=== PATIENT | female | born 1935 | race Caucasian/White ===

== ENCOUNTER 2017-02-25 03:39 | Emergency (ER) | payer MEDICARE, OTHER ==
[2017-02-25 04:57] LABS: ABSOLUTE EOSINOPHILS # (AUTO) 0.2 10^3/uL (0.0-0.6); ABSOLUTE MONOCYTES (AUTO) 0.5 10^3/uL (0.1-1.4); ABSOLUTE NEUT (AUTO) 3.2 10^3/uL (1.7-8.2); BASOPHILS % (AUTO) 0.7 % (0-2); EOSINOPHILS % (AUTO) 2.8 % (0-6); HEMOGLOBIN 12.3 g/dL (12.0-15.5); HGB HCT DIFFERENCE -1.1; LYMPHOCYTES % (AUTO) 33.9 % (13-45); MEAN CORPUSCULAR HEMOGLOBIN 27.8 pg (27.0-33.4); MEAN CORPUSCULAR HGB CONC 32.5 g/dL (32.0-36.0); MEAN CORPUSCULAR VOLUME 86 fl (80-97); MONOCYTES % (AUTO) 8.9 % (3-13); RED BLOOD COUNT 4.43 10^6/uL (3.72-5.28); RED CELL DISTRIBUTION WIDTH 13.5 % (11.5-14.0); SEGMENTED NEUTROPHILS % (AUTO) 53.7 % (42-78); WHITE BLOOD COUNT 5.9 10^3/uL (4.0-10.5)
[2017-02-25 05:11] LABS: ANION GAP 10 (5-19); BLOOD UREA NITROGEN 14 mg/dL (7-20); CALCIUM 9.2 mg/dL (8.4-10.2); CARBON DIOXIDE 24 mmol/L (22-30); CHLORIDE 107 mmol/L (98-107); CREATININE RESULT 0.64 mg/dL (0.52-1.25); GLUCOSE 83 mg/dL (75-110); POTASSIUM 4.3 mmol/L (3.6-5.0); SODIUM 140.5 mmol/L (137-145)
[2017-02-25 05:13] LABS: APPEARANCE,URINE CLEAR; BILIRUBIN,URINE NEGATIVE (NEGATIVE); GLUCOSE, URINE NEGATIVE (NEGATIVE); KETONES,URINE NEGATIVE (NEGATIVE); LEUKOCYTE ESTERASE,URINE NEGATIVE (NEGATIVE); NITRITE,URINE NEGATIVE (NEGATIVE); PROTEIN,URINE NEGATIVE (NEGATIVE); URINE SPECIFIC GRAVITY 1.004; UROBILINOGEN,URINE NEGATIVE mg/dL (<2.0)
--- NOTE | 2017-02-25 05:36 | RADIOLOGY REPORT (SQ) ---
EXAM DESCRIPTION: FOOT RIGHT COMPLETE COMPLETED DATE/TIME: 02/25/2017 5:24 am REASON FOR STUDY: FALL COMPARISON: None. NUMBER OF VIEWS: Three views. TECHNIQUE: AP, lateral and oblique radiographic images acquired of the right foot. LIMITATIONS: None. FINDINGS: MINERALIZATION: Osteopenia. BONES: No acute fracture or dislocation. No worrisome bone lesions. With [id number] osteoarth ritis of the right 1st metatarsophalangeal joint. Moderate bunion deformity. Moderate plantar fauci al enthesophyte. JOINTS: No effusions. SOFT TISSUES: No soft tissue swelling. No foreign body. OTHER: No other significant finding. IMPRESSION: No acute findings. TECHNICAL DOCUMENTATION: JOB ID: [id number] [employer]- All Rights Reserved
--- NOTE | 2017-02-25 05:37 | RADIOLOGY REPORT (SQ) ---
EXAM DESCRIPTION: FOOT LEFT COMPLETE COMPLETED DATE/TIME: 02/25/2017 5:24 am REASON FOR STUDY: FALL COMPARISON: None. NUMBER OF VIEWS: Three views. TECHNIQUE: AP, lateral and oblique radiographic images acquired of the left foot. LIMITATIONS: None. FINDINGS: MINERALIZATION: Osteopenia. BONES: [id number] osteoarthritis involves the Lisfranc joint and forefoot. 0.2 cm osteophyte a t the lateral aspect of the left 5th middle phalangeal base. Moderate plantar faucial enthesophyte. JOINTS: No effusions. SOFT TISSUES: No soft tissue swelling. No foreign body. OTHER: No other significant finding. IMPRESSION: Moderate osteoarthritis pre TECHNICAL DOCUMENTATION: JOB ID: [id number] [employer]- All Rights Reserved
[2017-02-25] MEDS ORDERED: FUROSEMIDE 20 MG TABLET PO ONE (06:24)
--- NOTE | 2017-02-25 06:25 | ER Document Report ---
ED General - General Chief Complaint: Foot Pain Stated Complaint: FOOT PAIN Time Seen by Provider: 02/25/17 03:59 Notes: Patient is a 81-year-old female who presents with complaint of swelling in her feet. She says that there is some red spiders in her new apartment. They did spray to kill the spiders but she is concerned she has a swelling of feet and thinks maybe the scars may have bit her. She denies any difficulty breathing. No chest pain. No fevers or infections. She said she also call her toe on the floor and wants to make sure that her feet are not broken. She has no other complaints at this time. TRAVEL OUTSIDE OF THE [place] IN LAST 30 DAYS: No - Related Data Allergies/Adverse Reactions: sulfamethoxazole [From Septra DS] Allergy (Intermediate, Verified 02/25/17 06:37 ) RASH trimethoprim [From Septra DS] Allergy (Intermediate, Verified 02/25/17 06:37) RASH aspirin [Aspirin] Allergy (Mild, Verified 02/25/17 06:37) Hives doxycycline monohydrate [From Vibramycin] Allergy (Unknown, Verified 02/25/17 06 :37) made me feel drunk, couldn't walk meloxicam [From Mobic] Allergy (Unknown, Verified 02/25/17 06:37) UNKNOWN nitrofurantoin [Nitrofurantoin] Allergy (Unknown, Verified 02/25/17 06:37) Sick all over lidocaine [From Lidoderm] Allergy (Verified 02/25/17 06:37) cimetidine [From Tagamet] Adverse Reaction (Intermediate, Verified 02/25/17 06: 37) YEAST cimetidine HCl [From Tagamet] Adverse Reaction (Intermediate, Verified 02/25/17 06:37) YEAST amoxicillin trihydrate [From Augmentin] Adverse Reaction (Mild, Verified 06:37) Nausea ciprofloxacin [From Cipro] Adverse Reaction (Mild, Verified 02/25/17 06:37) Sick stomach diclofenac sodium [From Arthrotec 75] Adverse Reaction (Mild, Verified 02/25/17 06:37) made me feel drunk doxycycline calcium [From Vibramycin] Adverse Reaction (Mild, Verified 02/25/17 06:37) made me feel drunk, couldn't walk doxycycline hyclate [From Vibramycin] Adverse Reaction (Mild, Verified 02/25/17 06:37) made me feel drunk, couldn't walk fexofenadine HCl [From Jacquelin] Adverse Reaction (Mild, Verified 02/25/17 06:37) "dries my mouth out" lansoprazole [From Prevacid] Adverse Reaction (Mild, Verified 02/25/17 06:37) Diarrhea misoprostol [From Arthrotec 75] Adverse Reaction (Mild, Verified 02/25/17 06:37) "felt drunk, couldn't walk" Potassium Clavulanate * [From Augmentin] Adverse Reaction (Mild, Verified 06:37) Nausea celecoxib [From Celebrex] Adverse Reaction (Unknown, Verified 02/25/17 06:37) Heart trouble ciprofloxacin HCl [From Cipro] Adverse Reaction (Unknown, Verified 02/25/17 06: 37) Sick stomach clindamycin HCl [From Cleocin] Adverse Reaction (Verified 02/25/17 06:37) Diarrhea clindamycin palmitate HCl [From Cleocin] Adverse Reaction (Verified 02/25/17 06: 37) Diarrhea clindamycin phosphate [From Cleocin] Adverse Reaction (Verified 02/25/17 06:37) Diarrhea risperidone [Risperidone] Adverse Reaction (Verified 02/25/17 06:37) Past Medical History - Social History Smoking Status: Unknown if Ever Smoked Drug Abuse: None Family History: Reviewed & Not Pertinent - Past Medical History Cardiac Medical History: Reports: Hx Hypertension Denies: Hx Coronary Artery Disease, Hx Heart Attack Pulmonary Medical History: Reports: Hx Asthma, Hx Pneumonia Denies: Hx Bronchitis, Hx COPD Neurological Medical History: Reports: Hx Migraine - visual migraines. 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, Reports Hx Musculoskeletal Trauma - left thumb Skin Medical History: Reports Hx Psoriasis Psychiatric Medical History: Reports: Hx Anxiety, Hx Depression Traumatic Medical History: Reports: Hx Fractures - left thumb Past Surgical History: Reports: Hx Appendectomy, Hx Cholecystectomy, Hx Hysterectomy, Hx Orthopedic Surgery - Immunizations Immunizations up to date: Yes Hx Diphtheria, Pertussis, Tetanus Vaccination: Yes - 2010 Hx Pneumococcal Vaccination: 09/19/07 Review of Systems - Review of Systems Notes: My Normal Review Basic REVIEW OF SYSTEMS: CONSTITUTIONAL : Denies fever, chills, or sweats. Denies recent illness. EENT: Denies eye, ear, throat, or mouth pain or symptoms. Denies nasal or sinus congestion. CARDIOVASCULAR: Denies chest pain. RESPIRATORY: Denies cough, cold, or chest congestion. Denies shortness of breath, difficulty breathing, or wheezing. GASTROINTESTINAL: Denies abdominal pain. Denies nausea, vomiting, or diarrhea. Denies constipation. Last BM: GENITOURINARY: Denies difficulty urinating, painful urination, burning, frequency, or blood in urine. MUSCULOSKELETAL: Lower extremity edema SKIN: Denies rash or skin lesions. NEUROLOGICAL: Denies altered mental status or loss of consciousness. Denies headache. Denies weakness or paralysis or loss of use of either side. Denies problems with gait or speech. Denies sensory or motor loss. PSYCHIATRIC: Denies anxiety or stress or depression. ALL OTHER SYSTEMS REVIEWED AND NEGATIVE. Physical Exam - Vital signs Vitals: Temp Pulse Resp BP Pulse Ox 97.7 F 110 H 20 150/91 H 95 02/25/17 03:40 02/25/17 03:40 02/25/17 03:40 02/25/17 03:40 02/25/17 03:40 - Notes Notes: General Appearance: Well nourished, alert, cooperative, no acute distress, no obvious discomfort. Well-appearing Vitals: reviewed, See vital signs table. Head: no swelling or tenderness to the head Eyes: PERRL, EOMI, Conjuctiva clear Mouth: No decreasd moisture Lungs: No wheezing, No rales, No rhonci, No accessory muscle use, good air exchange bilaterally. Heart: Normal rate, Regular rythm, No murmur, no rub Abdomen: Normal BS, soft, No rigidity, No abdominal tenderness, No guarding, no rebound, no abdominal masses, no organomegaly Extremities: strength 5/5 in all extremities, good pulses in all extremities, no swelling or tenderness in the extremities, 1+ bilateral lower extremity edema. Skin: warm, dry, appropriate color, no rash Neuro: speech clear, oriented x 3, normal affect, responds appropriately to questions. Course - Vital Signs Vital signs: Temp Pulse Resp BP Pulse Ox 97.6 F 62 18 141/79 H 100 02/25/17 06:35 02/25/17 06:35 02/25/17 06:35 02/25/17 06:35 02/25/17 06:35 - Laboratory Result Diagrams: 02/25/17 04:30 02/25/17 04:30 - Transfer of Care Notes: 02/25/17 07:09 Patient appears to have some pedal edema. Denies any significant rashes. I did not see any bug bites. Patient herself says that the edema is actually much improved in comparison to what was at home. I will place her on a short course of Lasix. I encouraged her to keep her legs elevated. She otherwise looks very well. Her x-rays are negative. She has full range of motion of her feet and good strength. At this time I feel she is safe to be discharged home. I encourage her to return to the ER immediately if she has increasing edema, any difficulty breathing, or any further concerns. Patient agrees with plan and will be discharged home. Dictation of this chart was performed using voice recognition software; therefore, there may be some unintended grammatical errors. Discharge - Discharge Clinical Impression: Foot pain, bilateral, Pedal edema Condition: Good Disposition: HOME, SELF-CARE Additional Instructions: Please take the Lasix as prescribed. Please keep your legs elevated on pillows when in bed. please call your doctor to follow up with him this week. Please return to the ER immediately if you have worsening swelling, any difficulty breathing, or if you feel unwell. Prescriptions: Furosemide [Lasix 20 mg Tablet] 20 mg PO QAM #10 tablet
[2017-02-25 06:36] VITALS: BP 141/79
== END 2017-02-25 06:45 | disposition home or self-care (01) ==
LOC: ER 03:39
DX: M79.671 Pain in right foot (principal); M79.672 Pain in left foot; R60.0 Localized edema; I10 Essential (primary) hypertension; J45.909 Unspecified asthma, uncomplicated; Z88.1 Allergy status to other antibiotic agents; Z88.6 Allergy status to analgesic agent; Z88.4 Allergy status to anesthetic agent
CPT/HCPCS: 99283; 36415; 85025; 80048; 81001; 73630 ×2; A9270

== ENCOUNTER 2017-04-02 12:58 | Emergency (ER) | payer MEDICARE, OTHER ==
[2017-04-02 14:25] VITALS: BP 123/81
[2017-04-02 14:27] LABS: ABSOLUTE EOSINOPHILS # (AUTO) 0.1 10^3/uL (0.0-0.6); ABSOLUTE LYMPHOCYTES (AUTO) 2.2 10^3/uL (0.5-4.7); ABSOLUTE MONOCYTES (AUTO) 0.5 10^3/uL (0.1-1.4); ABSOLUTE NEUT (AUTO) 4.6 10^3/uL (1.7-8.2); BASOPHILS % (AUTO) 0.6 % (0-2); EOSINOPHILS % (AUTO) 1.8 % (0-6); HEMATOCRIT 39.3 % (36.0-47.0); HEMOGLOBIN 13.3 g/dL (12.0-15.5); HGB HCT DIFFERENCE 0.6; LYMPHOCYTES % (AUTO) 29.6 % (13-45); MEAN CORPUSCULAR HEMOGLOBIN 28.4 pg (27.0-33.4); MEAN CORPUSCULAR HGB CONC 33.9 g/dL (32.0-36.0); MEAN CORPUSCULAR VOLUME 84 fl (80-97); MONOCYTES % (AUTO) 6.9 % (3-13); RED BLOOD COUNT 4.68 10^6/uL (3.72-5.28); RED CELL DISTRIBUTION WIDTH 13.8 % (11.5-14.0); SEGMENTED NEUTROPHILS % (AUTO) 61.1 % (42-78); WHITE BLOOD COUNT 7.6 10^3/uL (4.0-10.5)
[2017-04-02 14:34] LABS: APPEARANCE,URINE CLEAR; BILIRUBIN,URINE NEGATIVE (NEGATIVE); GLUCOSE, URINE NEGATIVE (NEGATIVE); KETONES,URINE TRACE mg/dL (NEGATIVE); LEUKOCYTE ESTERASE,URINE NEGATIVE (NEGATIVE); NITRITE,URINE NEGATIVE (NEGATIVE); PROTEIN,URINE NEGATIVE (NEGATIVE); URINE SPECIFIC GRAVITY 1.003; UROBILINOGEN,URINE NEGATIVE mg/dL (<2.0)
--- NOTE | 2017-04-02 14:35 | RADIOLOGY REPORT (SQ) ---
EXAM DESCRIPTION: CHEST PA/LAT COMPLETED DATE/TIME: 04/02/2017 2:27 pm REASON FOR STUDY: Chest pain and short of breath COMPARISON: 10/20/2012 EXAM PARAMETERS: NUMBER OF VIEWS: two views TECHNIQUE: Digital Frontal and Lateral radiographic views of the chest acquired. RADIATION DOSE: NA LIMITATIONS: none FINDINGS: LUNGS AND PLEURA: The lungs are hyperexpanded. There are no pulmonary infiltrates or pleu ral effusions. There is no mass. MEDIASTINUM AND HILAR STRUCTURES: A small hiatal hernia is suggested. HEART AND VASCULAR STRUCTURES: Heart normal size. No evidence for failure. BONES: No acute findings. HARDWARE: None in the chest. OTHER: No other significant finding. IMPRESSION: 1. Chronic lung changes with no acute cardiopulmonary disease. 2. Small hiatal hernia. TECHNICAL DOCUMENTATION: JOB ID: [id number] [employer]- All Rights Reserved
[2017-04-02 14:51] LABS: ALANINE AMINOTRANSFERASE 24 U/L (9-52); ALBUMIN 4.2 g/dL (3.5-5.0); ALKALINE PHOSPHATASE 122 U/L (38-126); ANION GAP 12 (5-19); ASPARTATE AMINO TRANSFERASE 20 U/L (14-36); BILIRUBIN,DIRECT 0.3 mg/dL (0.0-0.4); BILIRUBIN,TOTAL 0.6 mg/dL (0.2-1.3); BLOOD UREA NITROGEN 12 mg/dL (7-20); CALCIUM 9.8 mg/dL (8.4-10.2); CARBON DIOXIDE 24 mmol/L (22-30); CHLORIDE 102 mmol/L (98-107); CREATINE KINASE 49 U/L (30-135); CREATININE RESULT 0.67 mg/dL (0.52-1.25); GLUCOSE 95 mg/dL (75-110); POTASSIUM 4.2 mmol/L (3.6-5.0); SODIUM 137.6 mmol/L (137-145); TOTAL PROTEIN 7.4 g/dL (6.3-8.2)
--- NOTE | 2017-04-02 15:02 | RADIOLOGY REPORT (SQ) ---
EXAM DESCRIPTION: CT HEAD WITHOUT COMPLETED DATE/TIME: 04/02/2017 2:43 pm REASON FOR STUDY: Headache and dizzy COMPARISON: 10/24/2011. TECHNIQUE: Axial images acquired through the brain without intravenous contrast. Images reviewed wi th bone, brain and subdural windows. Images stored on PACS. All CT scanners at this facility use dose modulation, iterative reconstruction, and/or weight based d osing when appropriate to reduce radiation dose to as low as reasonably achievable (ALARA). [facility]: Dose Right [facility]: CareDose [facility]: Dose Right [facility]: Teradose 4D [facility]: [employer] RADIATION DOSE: Up-to-date CT equipment and radiation dose reduction techniques were employed. CTDIv ol: 49.0 mGy. DLP: 783 mGy-cm. mGy. LIMITATIONS: None. FINDINGS: VENTRICLES: Prominent. CEREBRUM: No masses. No hemorrhage. No midline shift. Areas of low density in the white matter mos t likely due to chronic micro-vascular ischemic change. Small old lacunar infarct on the left unchan ged. No evidence for acute infarction. CEREBELLUM: No masses. No hemorrhage. No alteration of density. No evidence for acute infarction. EXTRAAXIAL SPACES: Mild age-related involutional change. No fluid collections. No masses. ORBITS AND GLOBE: No intra- or extraconal masses. Normal contour of globe without masses. CALVARIUM: No fracture. PARANASAL SINUSES: Small amount of fluid in the right maxillary sinus, also present on the prior stud y. SOFT TISSUES: No mass or hematoma. OTHER: No other significant finding. IMPRESSION: 1. MILD CHRONIC CHANGES OF ATROPHY AND MICROVASCULAR ISCHEMIA. 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 NO ACUTE PROCESS. 2. RIGHT MAXILLARY SINUS DISEASE. TECHNICAL DOCUMENTATION: JOB ID: [id number] Quality ID # [id number]: Final reports with documentation of one or more dose reduction techniques (e.g., Au tomated exposure control, adjustment of the mA and/or kV according to patient size, use of iterative reconstruction technique) 2010 [employer]- All Rights Reserved
[2017-04-02 15:06] LABS: CREATINE KINASE MB 1.43 ng/mL (<4.55)
[2017-04-02 15:07] LABS: TROPONIN I < 0.012 ng/mL
--- NOTE | 2017-04-02 15:45 | ER Document Report ---
ED Dizziness/Weakness - General Chief Complaint: Dizziness Stated Complaint: DIZZINESS Time Seen by Provider: 04/02/17 13:39 Notes: Patient is here for multiple complaints, primarily is that she is feeling weak and dizzy. Patient has a rather lengthy history of present illness. She starts by saying that she was living in [place] with her daughter a couple of months ago when she decided to return to [place], where she had spent most of her life. Patient says that her daughter was unmanageable and uncontrollable and would have severe temper tantrums, so much so that the police had to be called a couple of times. Patient says that she was trying to help her daughter and spending her money wisely. She said that in these past couple months she has been here to the emergency department for spider bites of her feet with her feet swelling and painful followed by upper respiratory symptoms about 2 months ago. Today, patient took a van to the mental health facility and was seen there and then as she was leaving, she began to feel very dizzy and sick and had difficulty walking and keeping her balance. She says she had some headache on the left side of her head. Also had some heavy feeling in her chest. [place] very weak and shaky, although she did not fall. She did not lose consciousness. She did not have any fever. No nausea or vomiting or diarrhea. Patient says that she is seen in mental health for PTSD and anxiety and one other condition she cannot remember. Says she has been on Klonopin for 17 years. Also has a history of IBS and chronic constipation. TRAVEL OUTSIDE OF THE [place] IN LAST 30 DAYS: No - Related Data Allergies/Adverse Reactions: sulfamethoxazole [From Septra DS] Allergy (Intermediate, Verified 02/25/17 06:37 ) RASH trimethoprim [From Septra DS] Allergy (Intermediate, Verified 02/25/17 06:37) RASH aspirin [Aspirin] Allergy (Mild, Verified 02/25/17 06:37) Hives doxycycline monohydrate [From Vibramycin] Allergy (Unknown, Verified 02/25/17 06 :37) made me feel drunk, couldn't walk meloxicam [From Mobic] Allergy (Unknown, Verified 02/25/17 06:37) UNKNOWN nitrofurantoin [Nitrofurantoin] Allergy (Unknown, Verified 02/25/17 06:37) Sick all over lidocaine [From Lidoderm] Allergy (Verified 02/25/17 06:37) cimetidine [From Tagamet] Adverse Reaction (Intermediate, Verified 02/25/17 06: 37) YEAST cimetidine HCl [From Tagamet] Adverse Reaction (Intermediate, Verified 02/25/17 06:37) YEAST amoxicillin trihydrate [From Augmentin] Adverse Reaction (Mild, Verified 06:37) Nausea ciprofloxacin [From Cipro] Adverse Reaction (Mild, Verified 02/25/17 06:37) Sick stomach diclofenac sodium [From Arthrotec 75] Adverse Reaction (Mild, Verified 02/25/17 06:37) made me feel drunk doxycycline calcium [From Vibramycin] Adverse Reaction (Mild, Verified 02/25/17 06:37) made me feel drunk, couldn't walk doxycycline hyclate [From Vibramycin] Adverse Reaction (Mild, Verified 02/25/17 06:37) made me feel drunk, couldn't walk fexofenadine HCl [From Jacquelin] Adverse Reaction (Mild, Verified 02/25/17 06:37) "dries my mouth out" lansoprazole [From Prevacid] Adverse Reaction (Mild, Verified 02/25/17 06:37) Diarrhea misoprostol [From Arthrotec 75] Adverse Reaction (Mild, Verified 02/25/17 06:37) "felt drunk, couldn't walk" Potassium Clavulanate * [From Augmentin] Adverse Reaction (Mild, Verified 06:37) Nausea celecoxib [From Celebrex] Adverse Reaction (Unknown, Verified 02/25/17 06:37) Heart trouble ciprofloxacin HCl [From Cipro] Adverse Reaction (Unknown, Verified 02/25/17 06: 37) Sick stomach clindamycin HCl [From Cleocin] Adverse Reaction (Verified 02/25/17 06:37) Diarrhea clindamycin palmitate HCl [From Cleocin] Adverse Reaction (Verified 02/25/17 06: 37) Diarrhea clindamycin phosphate [From Cleocin] Adverse Reaction (Verified 02/25/17 06:37) Diarrhea risperidone [Risperidone] Adverse Reaction (Verified 02/25/17 06:37) Past Medical History - Social History Smoking Status: Former Smoker Chew tobacco use (# tins/day): No Frequency of alcohol use: None Drug Abuse: None Family History: Reviewed & Not Pertinent - Past Medical History Cardiac Medical History: Reports: Hx Atrial Fibrillation - History of, Hx Hypertension Pulmonary Medical History: Reports: Hx Asthma, Hx Pneumonia Denies: Hx Bronchitis, Hx COPD Neurological Medical History: Reports: Hx Migraine - visual migraines GI Medical History: Reports: Hx Gastroesophageal Reflux Disease, Hx Hiatal Hernia, Hx Irritable Bowel Musculoskeltal Medical History: 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 Generalized weakness. Dizziness. Vital signs are all normal. EENT: Denies eye, ear, nose or mouth or throat pain or other symptoms. Has a chronic Eye allergy/infection condition for which she is seeing an eye doctor. CARDIOVASCULAR: Denies chest pain. History of arrhythmia which she no longer has. RESPIRATORY: Denies cough, chest congestion, or shortness of breath. GASTROINTESTINAL: Denies abdominal pain or nausea, vomiting, or diarrhea. GENITOURINARY: Denies difficulty or painful urinating, urinary frequency, blood in urine. MUSCULOSKELETAL: Denies back or neck pain. Denies joint pain or swelling. SKIN: Denies rash or skin lesions. NEUROLOGICAL: Denies LOC or altered mental status. Denies sensory loss or motor deficits. ALL OTHER SYSTEMS REVIEWED AND NEGATIVE. Physical Exam - Vital signs Vitals: Resp Pulse Ox 17 100 04/02/17 13:10 04/02/17 13:10 Initial vital signs by EMS arrival sheet are all normal. Blood pressure 144/76 , heart rate 68, respirations 12, O2 sat 95% on room air. Interpretation: Normal - Notes Notes: PHYSICAL EXAMINATION: GENERAL: Well-appearing, in no acute distress. Anxious. No abnormal vital signs. HEAD: Atraumatic, normocephalic. EYES: Pupils equal round and reactive to light, extraocular movements intact. Skin around both eyelids is somewhat erythematous and irritated appearing, but does not look infectious. ENT: oropharynx clear without exudates. Moist mucous membranes. NECK: Normal range of motion, supple. LUNGS: Breath sounds clear and equal bilaterally. HEART: Regular rate and rhythm without murmurs. ABDOMEN: Soft, nontender. No guarding or rebound. BACK: No tenderness throughout entire back. EXTREMITIES: Normal range of motion without pain. NEUROLOGICAL: Normal speech, normal gait. Normal sensory, motor, and reflex exams. Awake, alert, and oriented x3. PSYCH: Normal mood, normal affect. Very anxious. SKIN: Warm, dry, no rashes. Course - Re-evaluation Re-evalutation: 04/02/17 15:59 Patient remained stable throughout her stay in the department. Says she still feels anxious. She thinks that her symptoms may be related to the fact that she had her dose of Klonopin increased while she was in [place] and has not felt the same ever since. I suggested she could decrease her dosage of the Klonopin and see how that does or she could even try more! - Vital Signs Vital signs: Temp Pulse Resp BP Pulse Ox 20 123/81 100 04/02/17 14:01 04/02/17 14:01 04/02/17 14:01 - Laboratory Result Diagrams: 04/02/17 14:05 04/02/17 14:05 Laboratory results interpreted by me: 04/02/17 14:15 Urine Ketones TRACE H - Diagnostic Test Radiology reviewed: Image reviewed, Reports reviewed - CT scan of the brain shows an old lacunar infarct, no acute changes and nothing new. Radiology results interpreted by me: 04/02/17 15:47 Chest x-ray is normal. - EKG Interpretation by Vt EKG shows normal: Sinus rhythm Rate: Normal Rhythm: NSR Discharge - Discharge Clinical Impression: Dizziness, Weakness, Anxiety Additional Instructions: Weakness We did not find a definite cause for your weakness. This may require further medical tests. Weakness can be caused by infection, physical exhaustion , rapid weight loss, dehydration, or medicine side effects. Diseases of the muscles, heart, nerves, and blood vessels can make you weak. Sometimes the problem is simply depression or lack of exercise. You should get plenty of rest. Unless the doctor tells you otherwise, it's usually best to add short periods of regular mild exercise. Eat a nutritious diet with multiple small, low-sugar meals. If symptoms continue, additional medical evaluation will be necessary. Be sure to follow up as instructed. If you become very dizzy, nauseated, or feel like you're going to faint, lie down right away. Wait until the symptoms have passed before you get up again. Stand up slowly. Call the doctor or return if you develop chest pain, abdominal pain, severe headache, irregular heartbeat or very fast pulse, confusion, vision problems, fever, muscular pain, or any other new symptom. DIZZINESS: Under normal circumstances, your sense of balance is controlled by a number of signals that your brain receives from several locations: Eyes. No matter what your position, visual signals help you determine where your body is in space and how it's moving. Sensory nerves. These are in your skin, muscles and joints. Sensory nerves send messages to your brain about body movements and positions. Inner ear. The organ of balance in your inner ear is the vestibular labyrinth. It includes loop-shaped structures (semicircular canals) that contain fluid and fine, hair-like sensors that monitor the rotation of your head. Near the semicircular canals are the utricle and saccule, which contain tiny particles called otoconia ([id number]). These particles are attached to sensors that help detect gravity and [id number] motion. Good balance depends on at least two of these three sensory systems working well. For instance, closing your eyes while washing your hair in the shower doesn't mean you'll lose your balance. Signals from your inner ear and sensory nerves help keep you upright. However, if your central nervous system can't process signals from all of these locations, if the messages are contradictory, or if the sensory systems aren't functioning properly, you may experience loss of balance. Dizziness may have a number of potential causes. These may include: Lightheadedness and other kinds of dizziness Feeling lightheaded is the feeling of being "spaced out" or having the sensation of spinning inside your head. It can also give you the sensation that if your lightheadedness worsens, you might lose consciousness. Causes may include: Inner ear disorders. These abnormalities of your inner ear can lead to illusions of motion and make you feel like you're floating. Anxiety disorders. Certain anxiety disorders, such as panic attacks and a fear of leaving home or being in large, open spaces (agoraphobia), may cause lightheadedness. Hyperventilation. Abnormally rapid breathing that often accompanies anxiety disorders may make you feel lightheaded. NORMAL EXAM AND WORKUP: At this time, your examination and workup show no significant abnormality. No significant abnormal physical findings were noted. All laboratory, EKG, and imaging (x-ray, CT scans, ultrasound) studies that were ordered show no significant abnormality. Although your examination and all studies that were ordered showed no significant abnormal finding, there are no examinations and no studies that are 100% accurate. There is always the possibility that some abnormality could exist and not be detected with physical examination or within the limits and capabilities of laboratory and other studies. You should return or follow up as you were instructed on your visit today for further evaluation if your symptoms do not resolve. Anxiety The physician feels that some of your health problems are being caused by anxiety. Anxiety affects your health in many ways. Anxiety alone can cause palpitations, sweats, chest pains, abdominal pains, shortness of breath, and headaches. It contributes to ulcer disease, high blood pressure, irritable bowel syndrome, and has been shown to cause flare-ups of many other diseases. Anxiety is not a simple disorder to treat. If the anxiety is due to recent life stresses, you may simply need time to "work through" the changes. If the anxiety is due to an underlying unhappiness with yourself or due to psychiatric disturbance, professional help will be needed. Your physician can refer you for further help if needed. Anti-anxiety medication is occasionally given if the stress is acute or if you are having trouble sleeping. Chronic or frequent use of these medications is not a good idea because the body becomes reliant on it, preventing you from dealing with life's normal stresses. FOLLOW-UP CARE: If you have been referred to a physician for follow-up care, call the physician s office for an appointment as you were instructed or within the next two days. If you experience worsening or a significant change in your symptoms, notify the physician immediately or return to the Emergency Department at any time for re-evaluation. Referrals: XOCHITL DELATORRE MD [Primary Care Provider] - Follow up as needed
--- NOTE | 2017-04-02 18:26 | EKG REPORT ---
SEVERITY:- ABNORMAL ECG - SINUS RHYTHM NONSPECIFIC ST-T CHANGES : Confirmed by: Hakan Prajapati MD 02-Apr-2017 18:25:10
== END 2017-04-02 16:34 | disposition other institution (70) ==
LOC: ER 12:58
DX: R42 Dizziness and giddiness (principal); R53.1 Weakness; R09.89 Other specified symptoms and signs involving the circulatory and respiratory systems; R26.2 Difficulty in walking, not elsewhere classified; L53.9 Erythematous condition, unspecified; I10 Essential (primary) hypertension; J45.909 Unspecified asthma, uncomplicated; F43.10 Post-traumatic stress disorder, unspecified; F41.9 Anxiety disorder, unspecified; Z79.899 Other long term (current) drug therapy; Z88.1 Allergy status to other antibiotic agents; Z88.6 Allergy status to analgesic agent; Z88.4 Allergy status to anesthetic agent; Z88.8 Allergy status to other drugs, medicaments and biological substances
CPT/HCPCS: 36415; 70450; 71020; 80053; 81001; 82550; 82553; 84484; 85025; 93005; 93010; 99285

== ENCOUNTER 2017-09-09 17:21 | Emergency (ER) | payer MEDICARE, OTHER ==
[2017-09-09] MEDS ORDERED: NORMAL SALINE 1000 ML 1,000 ML IV ONE (19:22)
[2017-09-09] MEDS ORDERED: HALOPERIDOL LACTATE INJ 5 MG/1 ML VIAL IV ONE (19:23)
--- NOTE | 2017-09-09 19:24 | ER Document Report ---
ED General - General Chief Complaint: Abdominal Pain Stated Complaint: ABDOMINAL PAIN Time Seen by Provider: 09/09/17 18:29 Notes: Patient is an 82-year-old female with a past medical history of anxiety and states she is withdrawing from her clonazepam who also presents with generalized abdominal pain most focal to the right upper quadrant that is been present for the past 24 hours. Patient states that this is very similar chronic abdominal pain that she has as related to irritable bowel syndrome. However, she reports that it usually does not last this long. She describes a dull, constant, aching pain. She notes associated nausea but denies any vomiting or diarrhea. She has not tried anything to improve her symptoms and nothing worsens her symptoms. She is scheduled follow-up with her primary care doctor in the morning but states that the pain got to a point where she could not wait so she came to the emergency department. She is already status post cholecystectomy. She has not had a fever or constitutional symptoms. TRAVEL OUTSIDE OF THE [place] IN LAST 30 DAYS: No - Related Data Allergies/Adverse Reactions: sulfamethoxazole [From Septra DS] Allergy (Intermediate, Verified 02/25/17 06:37 ) RASH trimethoprim [From Septra DS] Allergy (Intermediate, Verified 02/25/17 06:37) RASH aspirin [Aspirin] Allergy (Mild, Verified 02/25/17 06:37) Hives doxycycline monohydrate [From Vibramycin] Allergy (Unknown, Verified 02/25/17 06 :37) made me feel drunk, couldn't walk meloxicam [From Mobic] Allergy (Unknown, Verified 02/25/17 06:37) UNKNOWN nitrofurantoin [Nitrofurantoin] Allergy (Unknown, Verified 02/25/17 06:37) Sick all over lidocaine [From Lidoderm] Allergy (Verified 02/25/17 06:37) cimetidine [From Tagamet] Adverse Reaction (Intermediate, Verified 02/25/17 06: 37) YEAST cimetidine HCl [From Tagamet] Adverse Reaction (Intermediate, Verified 02/25/17 06:37) YEAST amoxicillin trihydrate [From Augmentin] Adverse Reaction (Mild, Verified 06:37) Nausea ciprofloxacin [From Cipro] Adverse Reaction (Mild, Verified 02/25/17 06:37) Sick stomach diclofenac sodium [From Arthrotec 75] Adverse Reaction (Mild, Verified 02/25/17 06:37) made me feel drunk doxycycline calcium [From Vibramycin] Adverse Reaction (Mild, Verified 02/25/17 06:37) made me feel drunk, couldn't walk doxycycline hyclate [From Vibramycin] Adverse Reaction (Mild, Verified 02/25/17 06:37) made me feel drunk, couldn't walk fexofenadine HCl [From Jacquelin] Adverse Reaction (Mild, Verified 02/25/17 06:37) "dries my mouth out" lansoprazole [From Prevacid] Adverse Reaction (Mild, Verified 02/25/17 06:37) Diarrhea misoprostol [From Arthrotec 75] Adverse Reaction (Mild, Verified 02/25/17 06:37) "felt drunk, couldn't walk" Potassium Clavulanate * [From Augmentin] Adverse Reaction (Mild, Verified 06:37) Nausea celecoxib [From Celebrex] Adverse Reaction (Unknown, Verified 02/25/17 06:37) Heart trouble ciprofloxacin HCl [From Cipro] Adverse Reaction (Unknown, Verified 02/25/17 06: 37) Sick stomach clindamycin HCl [From Cleocin] Adverse Reaction (Verified 02/25/17 06:37) Diarrhea clindamycin palmitate HCl [From Cleocin] Adverse Reaction (Verified 02/25/17 06: 37) Diarrhea clindamycin phosphate [From Cleocin] Adverse Reaction (Verified 02/25/17 06:37) Diarrhea risperidone [Risperidone] Adverse Reaction (Verified 02/25/17 06:37) Past Medical History - General Information source: Patient - Social History Smoking Status: Never Smoker Frequency of alcohol use: None Drug Abuse: None Lives with: Alone Family History: Reviewed & Not Pertinent - Past Medical History Cardiac Medical History: Reports: Hx Atrial Fibrillation - History of, Hx Hypertension Denies: Hx Heart Attack Pulmonary Medical History: Reports: Hx Asthma, Hx Pneumonia Denies: Hx Bronchitis, Hx COPD Neurological Medical History: Reports: Hx Migraine - visual migraines. 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 HENT: Negative for sore throat. Eyes: Negative for visual changes. Cardiovascular: Negative for chest pain. Respiratory: Negative for shortness of breath. Gastrointestinal: Positive for abdominal pain and nausea Genitourinary: Negative for dysuria. Musculoskeletal: Negative for back pain. Skin: Negative for rash. Neurological: Negative for headaches, weakness or numbness. 10 point ROS negative except as marked above and in HPI. Physical Exam - Vital signs Vitals: Temp Pulse Resp BP Pulse Ox 98.1 F 63 18 124/57 L 98 09/09/17 17:39 09/09/17 17:39 09/09/17 17:39 09/09/17 17:39 09/09/17 17:39 Interpretation: Normal Notes: PHYSICAL EXAMINATION: GENERAL: Well-appearing, well-nourished and in no acute distress. HEAD: Atraumatic, normocephalic. EYES: Pupils equal round and reactive to light, extraocular movements intact, sclera anicteric, conjunctiva are normal. ENT: nares patent, oropharynx clear without exudates. Moist mucous membranes. NECK: Normal range of motion, supple without lymphadenopathy LUNGS: Breath sounds clear to auscultation bilaterally and equal. No wheezes rales or rhonchi. HEART: Regular rate and rhythm without murmurs ABDOMEN: Soft, mild tenderness to palpation of the right upper quadrant otherwise no localized tenderness, normoactive bowel sounds. No guarding, no rebound. No masses appreciated. EXTREMITIES: Normal range of motion, no pitting or edema. No cyanosis. NEUROLOGICAL: No focal neurological deficits. Moves all extremities spontaneously and on command. PSYCH: Moderately anxious SKIN: Warm, Dry, normal turgor, no rashes or lesions noted. Course - Re-evaluation Re-evalutation: 09/09/17 19:23 Patient is an 82-year-old female who presents with chronic abdominal pain but she states that it is worse today than normal. She has been diagnosed with IBS. She presents with over 24 hours of continuous right upper quadrant epigastric abdominal pain radiating into her back. She states that she has had pain similar to this in the past but has never lasted for this duration. Differential diagnosis includes a possible acute pink otitis, hepatitis, bowel obstruction, localized colitis, less likely mesenteric ischemia or bowel perforation. Given the patient's age will obtain labs and CT abdomen pelvis to further assess. Will also provide IV hydration as patient states she has not been able to drink anything today due to her nausea. 09/09/17 22:[address] abdomen and pelvis are completely unremarkable. Patient is tolerating oral intake without difficulty. Suspect an ongoing issue with her known irritable bowel syndrome. At this time will discharge with return precautions and follow-up recommendations. Verbal discharge instructions given a the bedside and opportunity for questions given. Medication warnings reviewed. Patient is in agreement with this plan and has verbalized understanding of return precautions and the need for primary care follow-up in the next 24-72 hours. - Vital Signs Vital signs: Temp Pulse Resp BP Pulse Ox 97.6 F 84 16 139/84 H 99 09/09/17 23:13 09/09/17 23:13 09/09/17 23:13 09/09/17 23:13 09/09/17 23:13 - Laboratory Result Diagrams: 09/09/17 20:23 09/09/17 20:23 - Diagnostic Test Radiology reviewed: Image reviewed, Reports reviewed Discharge - Discharge Clinical Impression: Chronic abdominal pain, Nausea Condition: Good Disposition: HOME, SELF-CARE Additional Instructions: The CT scan of your abdomen and pelvis is normal today as are all of your labs. Your symptoms are likely related to your underlying irritable bowel syndrome. Please follow-up with your primary care doctor as scheduled. Return if you have worsening of your pain, persistent vomiting, inability to drink fluids for more than 12 hours, develop a fever greater than 100.4F, or have any other symptoms that are worrisome to you. Referrals: XOCHITL DELATORRE MD [Primary Care Provider] - Follow up tomorrow
[2017-09-09 20:35] LABS: ABSOLUTE BASOPHILS # (AUTO) 0.1 10^3/uL (0.0-0.2); ABSOLUTE EOSINOPHILS # (AUTO) 0.1 10^3/uL (0.0-0.6); ABSOLUTE LYMPHOCYTES (AUTO) 1.9 10^3/uL (0.5-4.7); ABSOLUTE MONOCYTES (AUTO) 0.4 10^3/uL (0.1-1.4); ABSOLUTE NEUT (AUTO) 4.3 10^3/uL (1.7-8.2); BASOPHILS % (AUTO) 1.2 % (0-2); EOSINOPHILS % (AUTO) 1.7 % (0-6); HEMATOCRIT 39.7 % (36.0-47.0); HEMOGLOBIN 13.2 g/dL (12.0-15.5); LYMPHOCYTES % (AUTO) 27.3 % (13-45); MEAN CORPUSCULAR HEMOGLOBIN 28.5 pg (27.0-33.4); MEAN CORPUSCULAR HGB CONC 33.3 g/dL (32.0-36.0); MEAN CORPUSCULAR VOLUME 86 fl (80-97); MONOCYTES % (AUTO) 6.3 % (3-13); PLATELET COUNT 216 10^3/uL (150-450); RED BLOOD COUNT 4.64 10^6/uL (3.72-5.28); RED CELL DISTRIBUTION WIDTH 13.5 % (11.5-14.0); SEGMENTED NEUTROPHILS % (AUTO) 63.5 % (42-78); TOTAL CELLS COUNTED % (AUTO) 100 %; WHITE BLOOD COUNT 6.8 10^3/uL (4.0-10.5)
[2017-09-09 20:49] LABS: ALANINE AMINOTRANSFERASE 26 U/L (9-52); ALKALINE PHOSPHATASE 102 U/L (38-126); ANION GAP 9 (5-19); ASPARTATE AMINO TRANSFERASE 20 U/L (14-36); BILIRUBIN,DIRECT 0.2 mg/dL (0.0-0.4); BILIRUBIN,TOTAL 0.5 mg/dL (0.2-1.3); BLOOD UREA NITROGEN 10 mg/dL (7-20); CALCIUM 10.1 mg/dL (8.4-10.2); CARBON DIOXIDE 27 mmol/L (22-30); CHLORIDE 105 mmol/L (98-107); GLUCOSE 92 mg/dL (75-110); LIPASE 141.6 U/L (23-300); POTASSIUM 4.8 mmol/L (3.6-5.0); SODIUM 141.4 mmol/L (137-145); TOTAL PROTEIN 6.9 g/dL (6.3-8.2)
--- NOTE | 2017-09-09 21:52 | RADIOLOGY REPORT (SQ) ---
EXAM DESCRIPTION: CT ABD/PELVIS WITH IV ONLY COMPLETED DATE/TIME: 09/09/2017 9:44 pm REASON FOR STUDY: generalized abdominal pain, elderly COMPARISON: None. TECHNIQUE: CT scan of the abdomen and pelvis performed using helical scanning technique with dynamic intravenous contrast injection. No oral contrast. Images reviewed with lung, soft tissue, and bone windows. Reconstructed coronal and sagittal MPR images reviewed. Delayed images for evaluation of the urinary system also acquired. All images stored on PACS. All CT scanners at this facility use dose modulation, iterative reconstruction, and/or weight based d osing when appropriate to reduce radiation dose to as low as reasonably achievable (ALARA). [facility]: Dose Right [facility]: CareDose [facility]: Dose Right [facility]: Teradose 4D [facility]: [employer] CONTRAST TYPE AND DOSE: contrast/concentration: Isovue 370.00 mg/ml; Total Contrast Delivered: 100.0 ml; Total Saline Delivered: 45.0 ml RENAL FUNCTION: GFR > 60. RADIATION DOSE: CT Rad equipment meets quality standard of care and radiation dose reduction techniq ues were employed. CTDIvol: 3.4 - 3.4 mGy. DLP: 347 mGy-cm.. LIMITATIONS: None. FINDINGS: LOWER CHEST: Hiatal hernia. LIVER: Normal size. No masses. No dilated ducts. SPLEEN: Normal size. No focal lesions. PANCREAS: No masses. No significant calcifications. No adjacent inflammation or peripancreatic fluid collections. Pancreatic duct not dilated. GALLBLADDER: Surgically absent. ADRENAL GLANDS: No significant masses or asymmetry. RIGHT KIDNEY AND URETER: No solid masses. No significant calcifications. No hydronephrosis or hyd roureter. LEFT KIDNEY AND URETER: No solid masses. No significant calcifications. No hydronephrosis or hydr oureter. AORTA AND VESSELS: No aneurysm. No dissection. Renal arteries, SMA, celiac without stenosis. RETROPERITONEUM: No retroperitoneal adenopathy, hemorrhage or masses. BOWEL AND PERITONEAL CAVITY: No masses or inflammatory changes. No free fluid or peritoneal masses. APPENDIX: Surgically absent. PELVIS: No mass. No free fluid. Normal bladder. ABDOMINAL WALL: No masses. No hernias. BONES: No acute findings. OTHER: No other significant finding. IMPRESSION: No acute abnormality in the abdomen or pelvis. TECHNICAL DOCUMENTATION: JOB ID: [id number] Quality ID # [id number]: Final reports with documentation of one or more dose reduction techniques (e.g., Au tomated exposure control, adjustment of the mA and/or kV according to patient size, use of iterative reconstruction technique) 2010 [employer]- All Rights Reserved
[2017-09-09 23:15] VITALS: BP 139/84
== END 2017-09-09 23:17 | disposition home or self-care (01) ==
LOC: ER 17:21
DX: G89.29 Other chronic pain (principal); R10.9 Unspecified abdominal pain; R11.0 Nausea; Z88.3 Allergy status to other anti-infective agents; Z88.0 Allergy status to penicillin; Z88.6 Allergy status to analgesic agent
CPT/HCPCS: 99285; 96361; 96374; 36415; 83690; 85025; 80053; 74177; J1630; J7030

== ENCOUNTER 2017-11-13 19:36 | Emergency (ER) | payer MEDICARE, OTHER ==
--- NOTE | 2017-11-13 20:17 | ER Document Report ---
ED General - General Chief Complaint: Medical Clearance Stated Complaint: PSYCH EVAL Time Seen by Provider: 11/13/17 19:52 Mode of Arrival: Medic Information source: Patient Notes: 82-year-old female with a history of depression, PTSD presents via EMS from home with complaints of worsening depression. Patient states that she attempted to admit herself to [facility] which is a psychiatric facility earlier today but that they requested for her to be medically cleared. Patient has had recent psychiatric evaluations. She believes her worsening depression is because she recently lost her son from a heart attack. She denies any suicidal or homicidal ideation. She states she does feel safe at home. She has had some changes in her medications of Klonopin and Seroquel. TRAVEL OUTSIDE OF THE [place] IN LAST 30 DAYS: No - Related Data Allergies/Adverse Reactions: sulfamethoxazole [From Septra DS] Allergy (Intermediate, Verified 02/25/17 06:37 ) RASH trimethoprim [From Septra DS] Allergy (Intermediate, Verified 02/25/17 06:37) RASH aspirin [Aspirin] Allergy (Mild, Verified 02/25/17 06:37) Hives doxycycline monohydrate [From Vibramycin] Allergy (Unknown, Verified 02/25/17 06 :37) made me feel drunk, couldn't walk meloxicam [From Mobic] Allergy (Unknown, Verified 02/25/17 06:37) UNKNOWN nitrofurantoin [Nitrofurantoin] Allergy (Unknown, Verified 02/25/17 06:37) Sick all over lidocaine [From Lidoderm] Allergy (Verified 02/25/17 06:37) cimetidine [From Tagamet] Adverse Reaction (Intermediate, Verified 02/25/17 06: 37) YEAST cimetidine HCl [From Tagamet] Adverse Reaction (Intermediate, Verified 02/25/17 06:37) YEAST amoxicillin trihydrate [From Augmentin] Adverse Reaction (Mild, Verified 06:37) Nausea ciprofloxacin [From Cipro] Adverse Reaction (Mild, Verified 02/25/17 06:37) Sick stomach diclofenac sodium [From Arthrotec 75] Adverse Reaction (Mild, Verified 02/25/17 06:37) made me feel drunk doxycycline calcium [From Vibramycin] Adverse Reaction (Mild, Verified 02/25/17 06:37) made me feel drunk, couldn't walk doxycycline hyclate [From Vibramycin] Adverse Reaction (Mild, Verified 02/25/17 06:37) made me feel drunk, couldn't walk fexofenadine HCl [From Jacquelin] Adverse Reaction (Mild, Verified 02/25/17 06:37) "dries my mouth out" lansoprazole [From Prevacid] Adverse Reaction (Mild, Verified 02/25/17 06:37) Diarrhea misoprostol [From Arthrotec 75] Adverse Reaction (Mild, Verified 02/25/17 06:37) "felt drunk, couldn't walk" Potassium Clavulanate * [From Augmentin] Adverse Reaction (Mild, Verified 06:37) Nausea celecoxib [From Celebrex] Adverse Reaction (Unknown, Verified 02/25/17 06:37) Heart trouble ciprofloxacin HCl [From Cipro] Adverse Reaction (Unknown, Verified 02/25/17 06: 37) Sick stomach clindamycin HCl [From Cleocin] Adverse Reaction (Verified 02/25/17 06:37) Diarrhea clindamycin palmitate HCl [From Cleocin] Adverse Reaction (Verified 02/25/17 06: 37) Diarrhea clindamycin phosphate [From Cleocin] Adverse Reaction (Verified 02/25/17 06:37) Diarrhea risperidone [Risperidone] Adverse Reaction (Verified 02/25/17 06:37) Past Medical History - General Information source: Patient - Social History Smoking Status: Unknown if Ever Smoked Chew tobacco use (# tins/day): No Frequency of alcohol use: None Drug Abuse: None Lives with: Alone Family History: Reviewed & Not Pertinent Patient has suicidal ideation: No Patient has homicidal ideation: No - Past Medical History Cardiac Medical History: Reports: Hx Atrial Fibrillation - History of, Hx Hypertension Denies: Hx Heart Attack Pulmonary Medical History: Reports: Hx Asthma, Hx Pneumonia Denies: Hx Bronchitis, Hx COPD Neurological Medical History: Reports: Hx Migraine - visual migraines. 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, Reports Hx Musculoskeletal Trauma - left thumb Skin Medical History: Reports Hx Psoriasis Psychiatric Medical History: Reports: Hx Anxiety, Hx Depression, Hx Post Traumatic Stress Disorder Traumatic Medical History: Reports: Hx Fractures - left thumb Past Surgical History: Reports: Hx Appendectomy, Hx Cholecystectomy, Hx Hysterectomy, Hx Orthopedic Surgery - Immunizations Immunizations up to date: Yes Hx Diphtheria, Pertussis, Tetanus Vaccination: Yes - 2010 Hx Pneumococcal Vaccination: 09/19/07 Review of Systems - Review of Systems Constitutional: denies: Fever, Malaise EENT: No symptoms reported Cardiovascular: denies: Chest pain, Palpitations, Heart racing, Syncope, Dizziness Respiratory: denies: Short of breath Gastrointestinal: denies: Abdominal pain, Nausea, Vomiting Genitourinary: denies: Dysuria Musculoskeletal: No symptoms reported Skin: No symptoms reported Physical Exam - Vital signs Vitals: Temp Pulse Resp BP Pulse Ox 98.4 F 74 20 128/66 H 97 11/13/17 19:52 11/13/17 19:52 11/13/17 19:52 11/13/17 19:52 11/13/17 19:52 Interpretation: Normal. No: Hypotensive, Tachycardic, Febrile - General General appearance: Appears well, Alert, Other - Tearful - HEENT Head: Normocephalic, Atraumatic Eyes: Normal Pupils: PERRL Mouth/Lips: Normal Mucous membranes: Moist Neck: Normal - Respiratory Respiratory status: No respiratory distress Chest status: Nontender Breath sounds: Normal Chest palpation: Normal - Cardiovascular Rhythm: Regular Heart sounds: Normal auscultation Murmur: No Pulses: Normal: Radial - Abdominal Inspection: Normal Distension: No distension Bowel sounds: Normal Tenderness: Nontender Organomegaly: No organomegaly - Psychological Associated symptoms: Normal affect, Anxious, Depressed. No: Auditory hallucinations - Denies suicidal and homicidal ideation, Decreased appetite, Flight of ideas Course - Re-evaluation Re-evalutation: 11/14/17 03:29 82 y/o female with history of depression presents with request for medical clearance for psychiatric care. Upon arrival VSS. Patient does not appear toxic or dehydrated. she is tearful and in NAD. She attempted to be admitted to a psychiatric facility but was told she needed medical clearance. Patient has history of depression and PTSD and is currently taking seroquel and klonipine. She denies SI/HI and feels the recent loss of her son has exacerbated her depression. She has current psychiatric care but is looking for someone else because her pcp recommended it. She has had prior hospital admissions for depression. Never attempted self harm in the past. She has an extensive history of family issues that have caused recent increased stress. She lives alone but states she feels safe. she has no physical complaints and is very reasonable. Patient's labs were wnl. copies were provided to the patient and she was discharged home with a friend. social work consult placed. Patient agreeable and safe for discharge home. Laboratory 11/13/17 11/13/17 11/13/17 20:33 20:45 20:45 WBC 7.0 RBC 4.56 Hgb 12.9 Hct 39.0 MCV 86 MCH 28.3 MCHC 33.0 RDW 13.4 Plt Count 207 Seg Neutrophils % 65.2 Lymphocytes % 23.9 Monocytes % 8.0 Eosinophils % 2.0 Basophils % 0.9 Absolute Neutrophils 4.6 Absolute Lymphocytes 1.7 Absolute Monocytes 0.6 Absolute Eosinophils 0.1 Absolute Basophils 0.1 Sodium 137.6 Potassium 4.5 Chloride 103 Carbon Dioxide 27 Anion Gap 8 BUN 15 Creatinine 0.64 Est GFR ( Amer) > 60 Est GFR (Non-Af Amer) > 60 Glucose 99 Calcium 9.7 Total Bilirubin 0.3 Direct Bilirubin 0.3 Neonat Total Bilirubin Not Reportable Neonat Direct Bilirubin Not Reportable Neonat Indirect Bili Not Reportable AST 23 ALT 22 Alkaline Phosphatase 75 Total Protein 7.0 Albumin 4.0 Urine Color STRAW Urine Appearance CLEAR Urine pH 8.0 Ur Specific Lynch 1.004 Urine Protein NEGATIVE Urine Glucose (UA) NEGATIVE Urine Ketones NEGATIVE Urine Blood NEGATIVE Urine Nitrite NEGATIVE Urine Bilirubin NEGATIVE Urine Urobilinogen NEGATIVE Ur Leukocyte Esterase NEGATIVE Urine WBC (Auto) 2 Urine RBC (Auto) 0 Urine Bacteria (Auto) TRACE Squamous Epi Cells Auto 1 Urine Mucus (Auto) RARE Urine Ascorbic Acid NEGATIVE Chest X-Ray 11/13/17 20:13 IMPRESSION: COPD. NO ACUTE RADIOGRAPHIC FINDING IN THE CHEST. Chest X-Ray 11/13/17 20:13 IMPRESSION: COPD. NO ACUTE RADIOGRAPHIC FINDING IN THE CHEST. Temp Pulse Resp BP Pulse Ox 11/13/17 22:01 74 20 131/75 H 96 11/13/17 19:52 98.4 F 74 20 128/66 H 97 - Vital Signs Vital signs: Temp Pulse Resp BP Pulse Ox 98.4 F 74 20 131/75 H 96 11/13/17 19:52 03/14/18 22:01 11/13/17 22:01 11/13/17 22:01 11/13/17 22:01 - Laboratory Result Diagrams: 11/13/17 20:45 11/13/17 20:45 Discharge - Discharge Clinical Impression: Depression, Anxiety as acute reaction to exceptional stress Condition: Good Disposition: HOME, SELF-CARE Instructions: Depression (ON LICENSE OF [facility]) Additional Instructions: Patient medically cleared.
--- NOTE | 2017-11-13 20:54 | RADIOLOGY REPORT (SQ) ---
EXAM DESCRIPTION: CHEST PA/LAT COMPLETED DATE/TIME: 11/13/2017 8:39 pm REASON FOR STUDY: weakness COMPARISON: 04/02/2017. NUMBER OF VIEWS: Two view. TECHNIQUE: Frontal and lateral radiographic views of the chest acquired. LIMITATIONS: None. FINDINGS: LUNGS AND PLEURA: No opacities, masses or pneumothorax. No pleural effusion. Attenuated bl ood vessels and flattened pedro-diaphragms. MEDIASTINUM AND HILAR STRUCTURES: No masses. No contour abnormalities. HEART AND VASCULAR STRUCTURES: Heart normal in size and contour. No evidence for failure. BONES: No acute findings. HARDWARE: Clips in the upper abdomen. OTHER: No other significant finding. IMPRESSION: COPD. NO ACUTE RADIOGRAPHIC FINDING IN THE CHEST. TECHNICAL DOCUMENTATION: JOB ID: [id number] [employer]- All Rights Reserved Reading location - IP/workstation name: [email or web address]
[2017-11-13 21:00] LABS: ABSOLUTE BASOPHILS # (AUTO) 0.1 10^3/uL (0.0-0.2); ABSOLUTE EOSINOPHILS # (AUTO) 0.1 10^3/uL (0.0-0.6); ABSOLUTE LYMPHOCYTES (AUTO) 1.7 10^3/uL (0.5-4.7); ABSOLUTE MONOCYTES (AUTO) 0.6 10^3/uL (0.1-1.4); ABSOLUTE NEUT (AUTO) 4.6 10^3/uL (1.7-8.2); BASOPHILS % (AUTO) 0.9 % (0-2); HEMOGLOBIN 12.9 g/dL (12.0-15.5); LYMPHOCYTES % (AUTO) 23.9 % (13-45); MEAN CORPUSCULAR HEMOGLOBIN 28.3 pg (27.0-33.4); MEAN CORPUSCULAR VOLUME 86 fl (80-97); PLATELET COUNT 207 10^3/uL (150-450); RED BLOOD COUNT 4.56 10^6/uL (3.72-5.28); RED CELL DISTRIBUTION WIDTH 13.4 % (11.5-14.0); SEGMENTED NEUTROPHILS % (AUTO) 65.2 % (42-78); TOTAL CELLS COUNTED % (AUTO) 100 %
[2017-11-13 21:03] LABS: APPEARANCE,URINE CLEAR; BILIRUBIN,URINE NEGATIVE (NEGATIVE); COLOR,URINE STRAW; GLUCOSE, URINE NEGATIVE (NEGATIVE); KETONES,URINE NEGATIVE (NEGATIVE); LEUKOCYTE ESTERASE,URINE NEGATIVE (NEGATIVE); NITRITE,URINE NEGATIVE (NEGATIVE); PROTEIN,URINE NEGATIVE (NEGATIVE); URINE SPECIFIC GRAVITY 1.004; UROBILINOGEN,URINE NEGATIVE mg/dL (<2.0)
[2017-11-13 21:17] LABS: ALANINE AMINOTRANSFERASE 22 U/L (9-52); ALKALINE PHOSPHATASE 75 U/L (38-126); ANION GAP 8 (5-19); ASPARTATE AMINO TRANSFERASE 23 U/L (14-36); BILIRUBIN,DIRECT 0.3 mg/dL (0.0-0.4); BILIRUBIN,TOTAL 0.3 mg/dL (0.2-1.3); BLOOD UREA NITROGEN 15 mg/dL (7-20); CALCIUM 9.7 mg/dL (8.4-10.2); CARBON DIOXIDE 27 mmol/L (22-30); CHLORIDE 103 mmol/L (98-107); GLUCOSE 99 mg/dL (75-110); POTASSIUM 4.5 mmol/L (3.6-5.0); SODIUM 137.6 mmol/L (137-145)
[2017-11-13 22:02] VITALS: BP 131/75
--- NOTE | 2017-11-14 07:20 | EKG REPORT ---
SEVERITY:- ABNORMAL ECG - SINUS RHYTHM NONSPECIFIC ST-T CHANGES ANTERIOR LEADS, UNCHANGED.. : Confirmed by: Hakan Prajapati MD 14-Nov-2017 07:20:02
== END 2017-11-13 22:01 | disposition home or self-care (01) ==
LOC: ER 19:36
DX: F32.9 Major depressive disorder, single episode, unspecified (principal); F41.1 Generalized anxiety disorder; F43.0 Acute stress reaction; I48.91 Unspecified atrial fibrillation; Z90.49 Acquired absence of other specified parts of digestive tract; Z90.710 Acquired absence of both cervix and uterus; Z88.3 Allergy status to other anti-infective agents; Z88.6 Allergy status to analgesic agent
CPT/HCPCS: 36415; 71046; 80053; 81001; 85025; 93005; 93010; 99284

== ENCOUNTER 2018-05-30 07:59 | Day surgery (SDC) | payer MEDICARE, OTHER ==
[~2018-05-30 07:59] MED LIST: DIPHENHYDRAMINE HCL 50 MG/ML VIAL ONE; EPINEPHRINE INJ 1 MG/10 ML DISP.SYRIN ONE; FENTANYL CITRATE INJ/PF 100 MCG/2 ML AMPUL ONE; FLUMAZENIL INJ 0.5 MG/5 ML VIAL ONE; GLUCAGON,HUMAN RECOMB 1 MG INJ ONE; NALOXONE HCL INJ/PF 0.4 MG/1 ML SDV ONE; ONDANSETRON HCL INJ/PF 4 MG/2 ML SDV ONE
[2018-05-30] MEDS: MIDAZOLAM 2 MG/2 ML INJ ONE ×3 (08:31→08:35)
--- NOTE | 2018-05-30 08:50 | Operative Report ---
Operative Report DATE OF SURGERY: 05/30/18 Operative Report: The risks, benefits and alternatives of the procedure including the risk of bleeding, perforation requiring surgery are explained to the patient in detail and informed consent is obtained. The patient is taken back to the endoscopy suite and placed in a left, lateral decubital position. Timeout was called. Conscious sedation medications are provided. Attempted intubation of the esophagus is unsuccessful. Change of the scope did not you any more successful results. Procedure was aborted. PREOPERATIVE DIAGNOSIS: Follow-up on gastric ulcer POSTOPERATIVE DIAGNOSIS: Procedure aborted due to inability of patient to cooperate with procedure. OPERATION: No procedure done SURGEON: CARL HOLDER ANESTHESIA: Moderate Sedation - 4 mg of Versed, 12.5 mcg of fentanyl. Conscious sedation monitoring time 30 minutes. TISSUE REMOVED OR ALTERED: None. COMPLICATIONS: None. ESTIMATED BLOOD LOSS: None. INTRAOPERATIVE FINDINGS: No findings that can be reported. PROCEDURE: Patient was not able to get procedure done. She is sent home in good condition. Discharge date 05/30/2018. Discharge diet regular. Discharge activity: Regular. We will need barium swallow as an outpatient.
[2018-05-30] MEDS ORDERED: FENTANYL CITRATE INJ/PF 100 MCG/2 ML AMPUL ONE (10:16)
[2018-05-30 10:39] VITALS: BP 130/62
== END 2018-05-30 09:55 | disposition home or self-care (01) ==
LOC: END 07:59
PROVIDERS: ATTEND Internal Medicine Gastroenterology
DX: R10.13 Epigastric pain (principal); M19.90 Unspecified osteoarthritis, unspecified site; J45.909 Unspecified asthma, uncomplicated; Z79.899 Other long term (current) drug therapy; Z88.1 Allergy status to other antibiotic agents; Z09 Encounter for follow-up examination after completed treatment for conditions other than malignant neoplasm; Z87.11 Personal history of peptic ulcer disease; Z53.9 Procedure and treatment not carried out, unspecified reason
CPT/HCPCS: J2250; J3010; J0171; J1200; J1610; J2310; J2405; J3490

== ENCOUNTER → 2018-07-02 | Outpatient (CLI) | payer MEDICARE, OTHER | LOC: LAB 10:14 | PROVIDERS: ATTEND Internal Medicine | DX: K59.04 Chronic idiopathic constipation (principal); R63.4 Abnormal weight loss | CPT/HCPCS: 36415; 82378 ==

== ENCOUNTER → 2018-07-02 | Outpatient (CLI) | payer MEDICARE, OTHER ==
--- NOTE | 2018-07-02 13:06 | RADIOLOGY REPORT (SQ) ---
EXAM DESCRIPTION: BARIUM SWALLOW ESOPHAGUS COMPLETED DATE/TIME: 07/02/2018 10:13 am REASON FOR STUDY: EPIGASTRIC PAIN R10.13 EPIGASTRIC PAIN COMPARISON: None. TECHNIQUE: Under fluoroscopic guidance, patient ingested effervescent granules followed by thick and thin barium. Fluoroscopic spot images and routine radiographic images acquired and stored on PACS. 12 MM BARIUM TABLET GIVEN: The patient swallowed a 12 mm barium tablet which passed easily through th e esophagus and into the stomach without delay. LIMITATIONS: None. FLUOROSCOPY TIME: FLUORO TIME: 2.3 minutes 8 images saved to PACS. FINDINGS: NEUROMUSCULAR COORDINATION OF SWALLOW: Normal. No aspiration. ESOPHAGEAL MOTILITY: Normal peristalsis. No esophageal spasm. Mild to moderate cricopharyngeus hyper trophy noted. ESOPHAGEAL MUCOSA: Normal mucosa without masses or ulceration. GASTRO-ESOPHAGEAL JUNCTION: There is a moderate to large-sized hiatal hernia present, involving the g astric fundus. No gastroesophageal reflux seen. NON-GI TRACT STRUCTURES: No significant finding. OTHER: No other significant finding. IMPRESSION: MODERATE/LARGE HIATAL HERNIA INVOLVING THE GASTRIC FUNDUS. 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 OTHERWISE UNREMARKABLE STUDY RECOMMENDATION: NONE COMMENT: NONE Quality ID [id number]: Final reports for procedures using fluoroscopy that document radiation exposure james maritza, or exposure time and number of fluorographic images (if radiation exposure indices are not avail able) TECHNICAL DOCUMENTATION: JOB ID: [id number] [employer]- All Rights Reserved Reading location - IP/workstation name: [email or web address] [id number]
== END ==
LOC: RAD 09:34
PROVIDERS: ATTEND Internal Medicine Gastroenterology
DX: K44.9 Diaphragmatic hernia without obstruction or gangrene (principal); R10.13 Epigastric pain; R97.8 Other abnormal tumor markers
CPT/HCPCS: 36415; 74220; 82378

== ENCOUNTER 2019-02-10 12:33 | Emergency (ER) | payer MEDICARE ==
[2019-02-10] MEDS ORDERED: ONDANSETRON HCL INJ/PF 4 MG/2 ML SDV IV ONE (12:56)
[2019-02-10] MEDS ORDERED: NORMAL SALINE 1000 ML 1,000 ML IV ONE (12:56)
[2019-02-10] MEDS ORDERED: MORPHINE SULFATE 10 MG/ML INJ IV ONE (12:57)
--- NOTE | 2019-02-10 12:59 | ER Document Report ---
ED Medical Screen (RME) - General Chief Complaint: Epigastric Pain Stated Complaint: ABDOMINAL PAIN Primary Care Provider: XOCHITL ORTIZ MD [Primary Care Provider] - Follow up as needed TRAVEL OUTSIDE OF THE [place] IN LAST 30 DAYS: No - HPI Notes: 02/10/19 12:57 Patient is an 83-year-old female with a history of anxiety/depression, gastritis, irritable bowel, pancreatitis, cholecystectomy who presents complaining of epigastric abdominal pain with associated nausea that began a few hours ago. Pain does not radiate. She is urinating normally, but also questions possible urinary infection. She is having normal bowel movements. Denies ESTEVES, fever, neck pain, URI, CP, SOB, back pain, or rash. I have treated and performed a rapid initial assessment of this patient. A comprehensive ED assessment and evaluation of the patient, analysis of test results and completion of medical decision making process will be conducted by additional ED providers. PHYSICAL EXAMINATION: GENERAL: Well-appearing, well-nourished and in no acute distress. A&Ox4. Answers questions appropriately. LUNGS: Breath sounds clear to auscultation bilaterally and equal. No wheezes rales or rhonchi. HEART: Regular rate and rhythm without murmurs, rubs, gallops. ABDOMEN: Soft, nondistended abdomen. No guarding, no rebound. Normal bowel sounds present. No CVA tenderness bilaterally. + epigastric tenderness (cannot elicit thorough abd exam w/o bed, however). Extremities: No cyanosis, clubbing, or edema b/l. NEUROLOGICAL: Normal speech, normal gait. PSYCH: Normal mood, normal affect. - Related Data Allergies/Adverse Reactions: sulfamethoxazole [From Septra DS] Allergy (Intermediate, Verified 05/30/18 08:02) RASH trimethoprim [From Septra DS] Allergy (Intermediate, Verified 05/30/18 08:02) RASH aspirin [Aspirin] Allergy (Mild, Verified 05/30/18 08:02) Hives doxycycline monohydrate [From Vibramycin] Allergy (Unknown, Verified 05/30/18 08:02) made me feel drunk, couldn't walk meloxicam [From Mobic] Allergy (Unknown, Verified 05/30/18 08:02) UNKNOWN nitrofurantoin [Nitrofurantoin] Allergy (Unknown, Verified 05/30/18 08:02) Sick all over lidocaine [From Lidoderm] Allergy (Verified 05/30/18 08:02) cimetidine [From Tagamet] Adverse Reaction (Intermediate, Verified 05/30/18 08:02) YEAST cimetidine HCl [From Tagamet] Adverse Reaction (Intermediate, Verified 05/30/18 08:02) YEAST amoxicillin trihydrate [From Augmentin] Adverse Reaction (Mild, Verified 05/30/18 08:02) Nausea ciprofloxacin [From Cipro] Adverse Reaction (Mild, Verified 05/30/18 08:02) Sick stomach diclofenac sodium [From Arthrotec 75] Adverse Reaction (Mild, Verified 05/30/18 08:02) made me feel drunk doxycycline calcium [From Vibramycin] Adverse Reaction (Mild, Verified 05/30/18 08:02) made me feel drunk, couldn't walk doxycycline hyclate [From Vibramycin] Adverse Reaction (Mild, Verified 05/30/18 08:02) made me feel drunk, couldn't walk fexofenadine HCl [From Jacquelin] Adverse Reaction (Mild, Verified 05/30/18 08:02) "dries my mouth out" lansoprazole [From Prevacid] Adverse Reaction (Mild, Verified 05/30/18 08:02) Diarrhea misoprostol [From Arthrotec 75] Adverse Reaction (Mild, Verified 05/30/18 08:02) "felt drunk, couldn't walk" Potassium Clavulanate * [From Augmentin] Adverse Reaction (Mild, Verified 05/30/18 08:02) Nausea celecoxib [From Celebrex] Adverse Reaction (Unknown, Verified 05/30/18 08:02) Heart trouble ciprofloxacin HCl [From Cipro] Adverse Reaction (Unknown, Verified 05/30/18 08:02) Sick stomach clindamycin HCl [From Cleocin] Adverse Reaction (Verified 05/30/18 08:02) Diarrhea clindamycin palmitate HCl [From Cleocin] Adverse Reaction (Verified 05/30/18 08:02) Diarrhea clindamycin phosphate [From Cleocin] Adverse Reaction (Verified 05/30/18 08:02) Diarrhea risperidone [Risperidone] Adverse Reaction (Verified 05/30/18 08:02) Past Medical History - Social History Frequency of alcohol use: Rare - Past Medical History Cardiac Medical History: Reports: Hx Atrial Fibrillation - History of Denies: Hx Coronary Artery Disease, Hx Heart Attack, Hx Hypertension Pulmonary Medical History: Reports: Hx Asthma - CAUSES CONGESTION, INHALER PRN, Hx Pneumonia - YRS AGO Denies: Hx Bronchitis, Hx COPD Neurological Medical History: Reports: Hx Migraine - visual migraines. Denies: Hx Cerebrovascular Accident, Hx Seizures Renal/ Medical History: Denies: Hx Peritoneal Dialysis GI Medical History: Reports: Hx Gastroesophageal Reflux Disease, Hx Hiatal Hernia, Hx Irritable Bowel Musculoskeltal Medical History: Reports Hx Arthritis, Reports Hx Musculoskeletal Trauma - left thumb Skin Medical History: Reports Hx Psoriasis Psychiatric Medical History: Reports: Hx Anxiety, Hx Depression, Hx Post Traumatic Stress Disorder Traumatic Medical History: Reports: Hx Fractures - left thumb Past Surgical History: Reports: Hx Appendectomy, Hx Cholecystectomy, Hx Hysterectomy, Hx Orthopedic Surgery - Immunizations Immunizations up to date: Yes Hx Diphtheria, Pertussis, Tetanus Vaccination: Yes Influenza Administration Date for 06/2017 - 10/2017 Season: 06/03/17 Physical Exam - Vital signs Vitals: Temp Pulse Resp BP Pulse Ox 97.8 F 62 16 137/90 H 98 02/10/19 12:45 02/10/19 12:45 02/10/19 12:45 02/10/19 12:45 02/10/19 12:45 Course - Vital Signs Vital signs: Temp Pulse Resp BP Pulse Ox 97.8 F 62 16 137/90 H 98 02/10/19 12:45 02/10/19 12:45 02/10/19 12:45 02/10/19 12:45 02/10/19 12:45 Doctor's Discharge - Discharge Referrals: XOCHITL ORTIZ MD [Primary Care Provider] - Follow up as needed
[2019-02-10 13:29] LABS: ABSOLUTE EOSINOPHILS # (AUTO) 0.1 10^3/uL (0.0-0.6); ABSOLUTE MONOCYTES (AUTO) 0.4 10^3/uL (0.1-1.4); ABSOLUTE NEUT (AUTO) 5.1 10^3/uL (1.7-8.2); BASOPHILS % (AUTO) 0.5 % (0-2); EOSINOPHILS % (AUTO) 1.2 % (0-6); HEMATOCRIT 39.1 % (36.0-47.0); HEMOGLOBIN 13.1 g/dL (12.0-15.5); LYMPHOCYTES % (AUTO) 15.6 % (13-45); MEAN CORPUSCULAR HEMOGLOBIN 29.1 pg (27.0-33.4); MEAN CORPUSCULAR HGB CONC 33.4 g/dL (32.0-36.0); MEAN CORPUSCULAR VOLUME 87 fl (80-97); MONOCYTES % (AUTO) 6.3 % (3-13); PLATELET COUNT 165 10^3/uL (150-450); RED BLOOD COUNT 4.49 10^6/uL (3.72-5.28); RED CELL DISTRIBUTION WIDTH 14.1 % (11.5-14.0); SEGMENTED NEUTROPHILS % (AUTO) 76.4 % (42-78); TOTAL CELLS COUNTED % (AUTO) 100 %; WHITE BLOOD COUNT 6.7 10^3/uL (4.0-10.5)
[2019-02-10 13:49] LABS: ALANINE AMINOTRANSFERASE 13 U/L (9-52); ALKALINE PHOSPHATASE 81 U/L (38-126); ANION GAP 11 (5-19); ASPARTATE AMINO TRANSFERASE 22 U/L (14-36); BILIRUBIN,DIRECT 0.2 mg/dL (0.0-0.4); BILIRUBIN,TOTAL 0.4 mg/dL (0.2-1.3); BLOOD UREA NITROGEN 18 mg/dL (7-20); CALCIUM 9.5 mg/dL (8.4-10.2); CARBON DIOXIDE 26 mmol/L (22-30); CHLORIDE 100 mmol/L (98-107); GLUCOSE 105 mg/dL (75-110); LIPASE 108.9 U/L (23-300); POTASSIUM 4.9 mmol/L (3.6-5.0); TOTAL PROTEIN 6.9 g/dL (6.3-8.2)
[2019-02-10 14:43] LABS: APPEARANCE,URINE CLEAR; BILIRUBIN,URINE NEGATIVE (NEGATIVE); COLOR,URINE YELLOW; GLUCOSE, URINE NEGATIVE (NEGATIVE); KETONES,URINE NEGATIVE (NEGATIVE); LEUKOCYTE ESTERASE,URINE NEGATIVE (NEGATIVE); NITRITE,URINE NEGATIVE (NEGATIVE); PROTEIN,URINE NEGATIVE (NEGATIVE); UROBILINOGEN,URINE NEGATIVE mg/dL (<2.0)
--- NOTE | 2019-02-10 16:01 | RADIOLOGY REPORT (SQ) ---
EXAM DESCRIPTION: ABDOMEN 2 VIEWS COMPLETED DATE/TIME: 02/10/2019 3:47 pm REASON FOR STUDY: abdominal pain COMPARISON: 07/27/2014 NUMBER OF VIEWS: Two views. TECHNIQUE: Supine and erect/decubitus radiographic images of the abdomen acquired. LIMITATIONS: None. FINDINGS: FREE AIR: None. No abnormal gas collections. LUNG BASES: Clear. BOWEL GAS PATTERN: Nonobstructive pattern. No dilated loops. A few nonspecific air-fluid levels. CALCIFICATIONS: No suspicious calcifications. SOFT TISSUES: No gross mass or suggestion of organomegaly. HARDWARE: Several surgical clips right lower quadrant of the abdomen, unchanged finding. Prior chol ecystectomy. BONES: No acute fracture. No worrisome bone lesions. OTHER: Moderate sized hiatal hernia. IMPRESSION: 1. A few nonspecific air-fluid levels are present. Examination is otherwise unremarkab le. TECHNICAL DOCUMENTATION: JOB ID: [id number] [employer]- All Rights Reserved Reading location - IP/workstation name: [email or web address]
[2019-02-10] MEDS ORDERED: FAMOTIDINE INJ/PF 20 MG/2 ML SDV IV ONE (17:26)
--- NOTE | 2019-02-10 18:25 | EKG REPORT ---
SEVERITY:- ABNORMAL ECG - SINUS RHYTHM LOW VOLTAGE THROUGHOUT NONSPECIFIC ANTERIOR ST-T CHNAGES : Confirmed by: Hakan Prajapati MD 10-Feb-2019 18:24:39
--- NOTE | 2019-02-10 19:58 | ER Document Report ---
ED General - General Chief Complaint: Epigastric Pain Stated Complaint: ABDOMINAL PAIN Time Seen by Provider: 02/10/19 12:59 Primary Care Provider: XOCHITL ORTIZ MD [Primary Care Provider] - Follow up as needed TRAVEL OUTSIDE OF THE [place] IN LAST 30 DAYS: No - HPI Notes: Patient is an 83-year-old female with a history of IBS with constipation, chronic abdominal pain, comes to the emergency department for evaluation of epigastric pain. She initially stated to triage that it did not radiate, she tells me that it radiates down her abdomen, and occasionally into the right side of her abdomen. Patient notes that she has a history of IBS with constipation, has been on Linzess for the last 2-1/2 months. She states she has had explosive diarrhea overnight nearly every night for the last 6 weeks. She called her doctor to notify them of this. They told her that she should take her medication in the morning. She states that that would not be possible given the fact that she lives independently, has to "go to the store." She decided to stop the Linzess 2 days ago. She did have 2 "explosive" episodes of diarrhea this morning. She denies any melena or hematochezia. She denies any fevers or chills. No nausea or vomiting. She states to me that the pain feels like contractions. Nothing seems to make it better or worse. She denies any significant change in her appetite, actually states to me she is hungry. - Related Data Allergies/Adverse Reactions: sulfamethoxazole [From Septra DS] Allergy (Intermediate, Verified 05/30/18 08:02) RASH trimethoprim [From Septra DS] Allergy (Intermediate, Verified 05/30/18 08:02) RASH aspirin [Aspirin] Allergy (Mild, Verified 05/30/18 08:02) Hives doxycycline monohydrate [From Vibramycin] Allergy (Unknown, Verified 05/30/18 08:02) made me feel drunk, couldn't walk meloxicam [From Mobic] Allergy (Unknown, Verified 05/30/18 08:02) UNKNOWN nitrofurantoin [Nitrofurantoin] Allergy (Unknown, Verified 05/30/18 08:02) Sick all over lidocaine [From Lidoderm] Allergy (Verified 05/30/18 08:02) cimetidine [From Tagamet] Adverse Reaction (Intermediate, Verified 05/30/18 08:0 2) YEAST cimetidine HCl [From Tagamet] Adverse Reaction (Intermediate, Verified 05/30/18 08:02) YEAST amoxicillin trihydrate [From Augmentin] Adverse Reaction (Mild, Verified 05/30/18 08:02) Nausea ciprofloxacin [From Cipro] Adverse Reaction (Mild, Verified 05/30/18 08:02) Sick stomach diclofenac sodium [From Arthrotec 75] Adverse Reaction (Mild, Verified 05/30/18 08:02) made me feel drunk doxycycline calcium [From Vibramycin] Adverse Reaction (Mild, Verified 05/30/18 08:02) made me feel drunk, couldn't walk doxycycline hyclate [From Vibramycin] Adverse Reaction (Mild, Verified 05/30/18 08:02) made me feel drunk, couldn't walk fexofenadine HCl [From Jacquelin] Adverse Reaction (Mild, Verified 05/30/18 08:02) "dries my mouth out" lansoprazole [From Prevacid] Adverse Reaction (Mild, Verified 05/30/18 08:02) Diarrhea misoprostol [From Arthrotec 75] Adverse Reaction (Mild, Verified 05/30/18 08:02) "felt drunk, couldn't walk" Potassium Clavulanate * [From Augmentin] Adverse Reaction (Mild, Verified 05/30/18 08:02) Nausea celecoxib [From Celebrex] Adverse Reaction (Unknown, Verified 05/30/18 08:02) Heart trouble ciprofloxacin HCl [From Cipro] Adverse Reaction (Unknown, Verified 05/30/18 08:02) Sick stomach clindamycin HCl [From Cleocin] Adverse Reaction (Verified 05/30/18 08:02) Diarrhea clindamycin palmitate HCl [From Cleocin] Adverse Reaction (Verified 05/30/18 08:02) Diarrhea clindamycin phosphate [From Cleocin] Adverse Reaction (Verified 05/30/18 08:02) Diarrhea risperidone [Risperidone] Adverse Reaction (Verified 05/30/18 08:02) Past Medical History - General Information source: Patient - Social History Smoking Status: Former Smoker Frequency of alcohol use: Rare Family History: Reviewed & Not Pertinent Patient has suicidal ideation: No Patient has homicidal ideation: No - Past Medical History Cardiac Medical History: Reports: Hx Atrial Fibrillation - History of Denies: Hx Coronary Artery Disease, Hx Heart Attack, Hx Hypertension Pulmonary Medical History: Reports: Hx Asthma - CAUSES CONGESTION, INHALER PRN, Hx Pneumonia - YRS AGO Denies: Hx Bronchitis, Hx COPD Neurological Medical History: Reports: Hx Migraine - visual migraines. Denies: Hx Cerebrovascular Accident, Hx Seizures Renal/ Medical History: Denies: Hx Peritoneal Dialysis GI Medical History: Reports: Hx Gastroesophageal Reflux Disease, Hx Hiatal Hernia, Hx Irritable Bowel Musculoskeletal Medical History: Reports Hx Arthritis, Reports Hx Musculoskeletal Trauma - left thumb Skin Medical History: Reports Hx Psoriasis Psychiatric Medical History: Reports: Hx Anxiety, Hx Depression, Hx Post Traumatic Stress Disorder Traumatic Medical History: Reports: Hx Fractures - left thumb Past Surgical History: Reports: Hx Appendectomy, Hx Cholecystectomy, Hx Hysterectomy, Hx Orthopedic Surgery - Immunizations Immunizations up to date: Yes Hx Diphtheria, Pertussis, Tetanus Vaccination: Yes Hx Pneumococcal Vaccination: 09/19/07 Review of Systems - Review of Systems Constitutional: No symptoms reported EENT: No symptoms reported Cardiovascular: No symptoms reported Respiratory: No symptoms reported Gastrointestinal: No symptoms reported Genitourinary: No symptoms reported Musculoskeletal: No symptoms reported Skin: No symptoms reported Neurological/Psychological: No symptoms reported Physical Exam - Vital signs Vitals: Temp Pulse Resp BP Pulse Ox 97.8 F 62 16 137/90 H 98 02/10/19 12:45 02/10/19 12:45 02/10/19 12:45 02/10/19 12:45 02/10/19 12:45 - Notes Notes: Vital signs reviewed, please refer to chart. Head is normocephalic, atraumatic. Pupils equal round, reactive to light. Neck is supple without meningismus. Heart is regular rate and rhythm. Lungs are clear to auscultation bilaterally. Abdomen is soft, epigastric tenderness without rebound or guarding, normoactive bowel sounds throughout. Extremities without cyanosis, clubbing. Posterior calves are nontender. Peripheral pulses are equal. Skin is warm and dry. Patient is awake, alert, neurological exam is nonfocal. Course - Re-evaluation Re-evalutation: 02/10/19 20:12 Patient is an 83-year-old female with a history of IBS and chronic abdominal pain who presents to the emergency department for evaluation. Laboratory investigations and EKG were obtained. Laboratory investigations are largely unremarkable. Patient was medicated here with morphine, Bentyl. She took some of her on Gas-X. She continued to have some pain. Multiple exams were repeated, abdominal exam is nonsurgical, cracking still operator though. X-ray failed to reveal any acute process. My strong suspicion is that this is IBS/withdrawal from Linzess, in a patient who has had multiple irritable bowel issues. Of note the patient is also started decreasing her Klonopin, she does have an extreme history of anxiety. I believe that she is somewhat fixated on this pain at this time. Again serial abdominal exams were performed and failed to reveal any acute surgical pathology. X-ray was unremarkable. At this point I will discharge the patient. I will have her follow-up with her primary care provider tomorrow. I will send her home with some Bentyl, she is given to tonight to go. She is to return to the ED with worsening or new concerning symptoms of any sort. - Vital Signs Vital signs: Temp Pulse Resp BP Pulse Ox 97.8 F 62 16 137/90 H 98 02/10/19 12:45 02/10/19 12:45 02/10/19 12:45 02/10/19 12:45 02/10/19 12:45 - Laboratory Result Diagrams: 02/10/19 13:10 02/10/19 13:10 Laboratory results interpreted by me: 02/10/19 13:10 RDW 14.1 H - Diagnostic Test Radiology reviewed: Reports reviewed Radiology results interpreted by me: 02/10/19 20:11 Abdomen X-Ray 02/10/19 15:32 IMPRESSION: 1. A few nonspecific air-fluid levels are present. Examination is otherwise unremarkable. - EKG Interpretation by Me Additional EKG results interpreted by me: 02/10/19 20:11 Sinus bradycardia with a rate of 52. Normal axis and intervals, low voltage across the precordium. No acute ST changes concerning for ischemia or infarction. Discharge - Discharge Clinical Impression: Epigastric abdominal pain Condition: Stable Disposition: HOME, SELF-CARE Instructions: Abdominal Pain ([facility]), Antispasmodics ([facility]) Additional Instructions: Take medication as prescribed. Follow-up with your doctor tomorrow. If you develop increased pain, vomiting, fever, or any other new or concerning symptoms, return immediately to the emergency department for reevaluation peer Referrals: XOCHITL ORTIZ MD [Primary Care Provider] - Follow up as needed
[2019-02-10] MEDS ORDERED: DICYCLOMINE HCL 20 MG TABLET PO ONE (20:17)
[2019-02-10 20:34] VITALS: BP 142/54
== END 2019-02-10 20:32 | disposition home or self-care (01) ==
LOC: ER 12:33
DX: R10.13 Epigastric pain (principal); K59.00 Constipation, unspecified; I48.91 Unspecified atrial fibrillation; Z88.3 Allergy status to other anti-infective agents; Z88.6 Allergy status to analgesic agent; Z88.0 Allergy status to penicillin; Z90.49 Acquired absence of other specified parts of digestive tract; Z90.710 Acquired absence of both cervix and uterus
CPT/HCPCS: 93005; 99284; 96361; 96374; 96375; 36415; 87086; 83690; 85025; 80053; 81001; 74019; 93010; A9270; J2270; J2405; J7030; S0028; J3490

== ENCOUNTER 2019-02-11 05:08 | Inpatient (IN) | payer MEDICARE ==
[2019-02-11] MEDS ORDERED: DICYCLOMINE HCL 20 MG TABLET PO ONE (05:30)
--- NOTE | 2019-02-11 05:36 | ER Document Report ---
ED Medical Screen (RME) - General Chief Complaint: Nausea/Vomiting Stated Complaint: NAUSEA/VOMITING Time Seen by Provider: 02/11/19 05:14 Primary Care Provider: XOCHITL ORTIZ MD [Primary Care Provider] - Follow up as needed Mode of Arrival: Medic Information source: Patient Notes: Patient is an 83-year-old female presenting to the emergency department with abdominal pain and vomiting. Patient reports she was discharged from this facility at 8 PM last night. Patient reports she was given a medication that helps with her pain and symptoms, she states she went home and slept well but this morning when she woke up she vomited one time again. Patient states she was discharged with plans to follow-up with her primary care physician. She reports that the pain has returned although it is slightly better than when she was seen last night. She denies any fever or diarrhea. She states that her plan was to follow-up with her primary care physician however she is concerned that she will not be able to see him in time and is requesting medications for her symptoms. Exam: Patient alert, oriented, answering all questions and in no acute distress. Mild mid abdominal tenderness on palpation without guarding or rebound. I have greeted and performed a rapid initial assessment of this patient. A comprehensive ED assessment and evaluation of the patient, analysis of test results and completion of the medical decision making process will be conducted by additional ED providers. Dictation of this chart was performed using voice recognition software; therefore, there may be some unintended grammatical errors. TRAVEL OUTSIDE OF THE [place] IN LAST 30 DAYS: No - Related Data Allergies/Adverse Reactions: sulfamethoxazole [From Septra DS] Allergy (Intermediate, Verified 05/30/18 08:02) RASH trimethoprim [From Septra DS] Allergy (Intermediate, Verified 05/30/18 08:02) RASH aspirin [Aspirin] Allergy (Mild, Verified 05/30/18 08:02) Hives doxycycline monohydrate [From Vibramycin] Allergy (Unknown, Verified 05/30/18 08:02) made me feel drunk, couldn't walk meloxicam [From Mobic] Allergy (Unknown, Verified 05/30/18 08:02) UNKNOWN nitrofurantoin [Nitrofurantoin] Allergy (Unknown, Verified 05/30/18 08:02) Sick all over lidocaine [From Lidoderm] Allergy (Verified 05/30/18 08:02) cimetidine [From Tagamet] Adverse Reaction (Intermediate, Verified 05/30/18 08:02) YEAST cimetidine HCl [From Tagamet] Adverse Reaction (Intermediate, Verified 05/30/18 08:02) YEAST amoxicillin trihydrate [From Augmentin] Adverse Reaction (Mild, Verified 05/30/18 08:02) Nausea ciprofloxacin [From Cipro] Adverse Reaction (Mild, Verified 05/30/18 08:02) Sick stomach diclofenac sodium [From Arthrotec 75] Adverse Reaction (Mild, Verified 05/30/18 08:02) made me feel drunk doxycycline calcium [From Vibramycin] Adverse Reaction (Mild, Verified 05/30/18 08:02) made me feel drunk, couldn't walk doxycycline hyclate [From Vibramycin] Adverse Reaction (Mild, Verified 05/30/18 08:02) made me feel drunk, couldn't walk fexofenadine HCl [From Jacquelin] Adverse Reaction (Mild, Verified 05/30/18 08:02) "dries my mouth out" lansoprazole [From Prevacid] Adverse Reaction (Mild, Verified 05/30/18 08:02) Diarrhea misoprostol [From Arthrotec 75] Adverse Reaction (Mild, Verified 05/30/18 08:02) "felt drunk, couldn't walk" Potassium Clavulanate * [From Augmentin] Adverse Reaction (Mild, Verified 05/30/18 08:02) Nausea celecoxib [From Celebrex] Adverse Reaction (Unknown, Verified 05/30/18 08:02) Heart trouble ciprofloxacin HCl [From Cipro] Adverse Reaction (Unknown, Verified 05/30/18 08:02) Sick stomach clindamycin HCl [From Cleocin] Adverse Reaction (Verified 05/30/18 08:02) Diarrhea clindamycin palmitate HCl [From Cleocin] Adverse Reaction (Verified 05/30/18 08:02) Diarrhea clindamycin phosphate [From Cleocin] Adverse Reaction (Verified 05/30/18 08:02) Diarrhea risperidone [Risperidone] Adverse Reaction (Verified 05/30/18 08:02) Past Medical History - Past Medical History Cardiac Medical History: Reports: Hx Atrial Fibrillation - History of Denies: Hx Coronary Artery Disease, Hx Heart Attack, Hx Hypertension Pulmonary Medical History: Reports: Hx Asthma - CAUSES CONGESTION, INHALER PRN, Hx Pneumonia - YRS AGO Denies: Hx Bronchitis, Hx COPD Neurological Medical History: Reports: Hx Migraine - visual migraines. Denies: Hx Cerebrovascular Accident, Hx Seizures Renal/ Medical History: Denies: Hx Peritoneal Dialysis GI Medical History: Reports: Hx Gastroesophageal Reflux Disease, Hx Hiatal Hernia, Hx Irritable Bowel Musculoskeltal Medical History: Reports Hx Arthritis, Reports Hx Musculoskeletal Trauma - left thumb Skin Medical History: Reports Hx Psoriasis Psychiatric Medical History: Reports: Hx Anxiety, Hx Depression, Hx Post Traumatic Stress Disorder Traumatic Medical History: Reports: Hx Fractures - left thumb Past Surgical History: Reports: Hx Appendectomy, Hx Cholecystectomy, Hx Hysterectomy, Hx Orthopedic Surgery - Immunizations Immunizations up to date: Yes Hx Diphtheria, Pertussis, Tetanus Vaccination: Yes Influenza Administration Date for 06/2017 - 10/2017 Season: 06/03/17 Doctor's Discharge - Discharge Referrals: XOCHITL ORTIZ MD [Primary Care Provider] - Follow up as needed
[2019-02-11 06:23] LABS: ABSOLUTE BASOPHILS # (AUTO) 0.1 10^3/uL (0.0-0.2); ABSOLUTE EOSINOPHILS # (AUTO) 0.1 10^3/uL (0.0-0.6); ABSOLUTE MONOCYTES (AUTO) 0.7 10^3/uL (0.1-1.4); ABSOLUTE NEUT (AUTO) 8.8 10^3/uL (1.7-8.2); BASOPHILS % (AUTO) 0.6 % (0-2); EOSINOPHILS % (AUTO) 0.8 % (0-6); HEMATOCRIT 41.5 % (36.0-47.0); LYMPHOCYTES % (AUTO) 9.4 % (13-45); MEAN CORPUSCULAR HGB CONC 33.6 g/dL (32.0-36.0); MEAN CORPUSCULAR VOLUME 86 fl (80-97); MONOCYTES % (AUTO) 6.4 % (3-13); PLATELET COUNT 165 10^3/uL (150-450); RED BLOOD COUNT 4.81 10^6/uL (3.72-5.28); RED CELL DISTRIBUTION WIDTH 13.6 % (11.5-14.0); SEGMENTED NEUTROPHILS % (AUTO) 82.8 % (42-78); TOTAL CELLS COUNTED % (AUTO) 100 %; WHITE BLOOD COUNT 10.6 10^3/uL (4.0-10.5)
[2019-02-11 06:32] LABS: ALANINE AMINOTRANSFERASE 18 U/L (9-52); ALKALINE PHOSPHATASE 97 U/L (38-126); ANION GAP 10 (5-19); ASPARTATE AMINO TRANSFERASE 22 U/L (14-36); BILIRUBIN,DIRECT 0.2 mg/dL (0.0-0.4); BILIRUBIN,TOTAL 0.8 mg/dL (0.2-1.3); BLOOD UREA NITROGEN 15 mg/dL (7-20); CALCIUM 9.9 mg/dL (8.4-10.2); CARBON DIOXIDE 26 mmol/L (22-30); CHLORIDE 104 mmol/L (98-107); GLUCOSE 115 mg/dL (75-110); POTASSIUM 4.3 mmol/L (3.6-5.0); SODIUM 139.7 mmol/L (137-145); TOTAL PROTEIN 6.9 g/dL (6.3-8.2)
--- NOTE | 2019-02-11 07:30 | RADIOLOGY REPORT (SQ) ---
EXAM DESCRIPTION: CT ABDOMEN PELVIS WITH IV CONTRAST COMPLETED DATE/TME: 02/11/2019 06:12 CLINICAL HISTORY: abdominal pain COMPARISON: 09/09/2017 TECHNIQUE: CT of the abdomen and pelvis performed following IV administration of 67 mL of Omnipaque 350. DLP: 534 mGycm FINDINGS: Lung Bases: The visualized lung bases are clear. Bones: Degenerative change of the spine. Abdomen: Liver: The liver has normal size and density. No intrahepatic mass or biliary dilatation. Gallbladder: Prior cholecystectomy. Spleen, Pancreas, and Adrenal Glands: The spleen, pancreas, and adrenal glands are unremarkable. Kidneys: The kidneys have normal size without evidence of solid mass or hydronephrosis. Punctate nonobstructing right renal calculus. Cortical defect in the left kidney may be related to previous infectious or inflammatory insult. Vasculature: Aortoiliac atherosclerosis. IVC is unremarkable. The portal vein is patent. The proximal visceral and renal arteries are patent. Stomach: Moderate hiatal hernia. Other: No free intraperitoneal air. Small amount of free fluid. Pelvis: Bladder: Urinary bladder is unremarkable. Bowel: Dilated loops of small bowel with transition to decompressed loops of bowel in the right lower abdomen. Degenerative transition point not identified. Scattered diverticula of the colon. Appendix: Not identified. Postoperative change in the right lower abdomen. Pelvis: Prior hysterectomy. IMPRESSION: 1. Findings compatible with small bowel obstruction with transition to decompressed loops of bowel in the right lower abdomen. Definitive transition point not definitely identified. 2. Nonobstructing right nephrolithiasis. 3. Diverticulosis without evidence of acute diverticulitis. This exam was performed according to our departmental dose-optimization program, which includes automated exposure control, adjustment of the mA and/or kV according to patient size and/or use of iterative reconstruction technique.
[2019-02-11] MEDS ORDERED: PHARMACY COMMUNICATION ORDER MC NR (07:45)
[2019-02-11] MEDS ORDERED: NORMAL SALINE 1000 ML 1,000 ML IV PRN (07:47)
[2019-02-11] MEDS ORDERED: NORMAL SALINE 1000 ML 1,000 ML IV ONE (07:47)
[2019-02-11] MEDS ORDERED: MORPHINE SULFATE 10 MG/ML INJ IV ONE (07:49)
--- NOTE | 2019-02-11 07:49 | ER Document Report ---
ED General - General Chief Complaint: Nausea/Vomiting Stated Complaint: NAUSEA/VOMITING Time Seen by Provider: 02/11/19 05:14 Primary Care Provider: XOCHITL ORTIZ MD [HONORARY] - Follow up as needed Mode of Arrival: Medic TRAVEL OUTSIDE OF THE [place] IN LAST 30 DAYS: No - HPI Notes: Patient is a 83-year-old female that presents to the emergency department for chief complaint of abdominal pain. Patient reports abdominal pain that began yesterday. She states it is sharp in all over but mostly points to her epigastric region. She did have 2 soft bowel movements yesterday morning but has not had any since. She is not sure if she has passed any gas since yesterday morning either. She reports multiple episodes of emesis yesterday and this morning. Patient was seen in the emergency room yesterday evening and states she felt much better after medical management. She was able to go home and get some sleep but when she woke up the nausea and pain returned. Patient denies associated fevers/chills, chest pain and shortness of breath. She denies any black or bloody stools as well as hematemesis. Past Medical History: Anxiety, IBS, chronic abdominal pain Past Surgical History: Cholecystectomy, hysterectomy Social History: Denies drugs alcohol and tobacco Family History: Reviewed and noncontributory for presenting illness Allergies: Reviewed, see documented allergy list. REVIEW OF SYSTEMS: CONSTITUTIONAL : No fever No chills No diaphoresis No recent illness EENT: No vision changes No congestion No sore throat CARDIOVASCULAR: No chest pain No palpitations RESPIRATORY: No shortness of breath No cough No difficulty breathing GASTROINTESTINAL: abdominal pain nausea vomiting diarrhea GENITOURINARY: No dysuria No hematuria No difficulty urinating MUSCULOSKELETAL: No back pain No leg pain No arm pain SKIN: No rashes No lesions LYMPHATIC: No swollen, enlarged glands. NEUROLOGICAL: No lightheadedness No headache No weakness No paresthesias PSYCHIATRIC: No anxiety No depression PHYSICAL EXAMINATION: Vital signs reviewed, nursing noted reviewed. GENERAL: Well-appearing, well-nourished and in no acute distress. HEAD: Atraumatic, normocephalic. EYES: Eyes appear normal, extraocular movements intact, sclera anicteric, conjunctiva are normal. ENT: nares patent, oropharynx clear without exudates. Mildly dry mucous membranes. NECK: Normal range of motion, supple without lymphadenopathy LUNGS: Breath sounds clear to auscultation bilaterally and equal. No wheezes rales or rhonchi. HEART: Regular rate and rhythm without murmurs ABDOMEN: Soft, mildly tender in the epigastric region. No rebound, guarding, or rigidity. No masses appreciated. EXTREMITIES: Nontender, good range of motion, no pitting or edema. NEUROLOGICAL: No focal neurological deficits. Moves all extremities spontaneously Motor and sensory grossly intact on exam. PSYCH: Normal mood, normal affect. SKIN: Warm, Dry, normal turgor, no rashes or lesions noted on exposed skin - Related Data Allergies/Adverse Reactions: sulfamethoxazole [From Septra DS] Allergy (Intermediate, Verified 05/30/18 08:02) RASH trimethoprim [From Septra DS] Allergy (Intermediate, Verified 05/30/18 08:02) RASH aspirin [Aspirin] Allergy (Mild, Verified 05/30/18 08:02) Hives doxycycline monohydrate [From Vibramycin] Allergy (Unknown, Verified 05/30/18 08:02) made me feel drunk, couldn't walk meloxicam [From Mobic] Allergy (Unknown, Verified 05/30/18 08:02) UNKNOWN nitrofurantoin [Nitrofurantoin] Allergy (Unknown, Verified 05/30/18 08:02) Sick all over lidocaine [From Lidoderm] Allergy (Verified 05/30/18 08:02) cimetidine [From Tagamet] Adverse Reaction (Intermediate, Verified 05/30/18 08:02) YEAST cimetidine HCl [From Tagamet] Adverse Reaction (Intermediate, Verified 05/30/18 08:02) YEAST amoxicillin trihydrate [From Augmentin] Adverse Reaction (Mild, Verified 05/30/18 08:02) Nausea ciprofloxacin [From Cipro] Adverse Reaction (Mild, Verified 05/30/18 08:02) Sick stomach diclofenac sodium [From Arthrotec 75] Adverse Reaction (Mild, Verified 05/30/18 08:02) made me feel drunk doxycycline calcium [From Vibramycin] Adverse Reaction (Mild, Verified 05/30/18 08:02) made me feel drunk, couldn't walk doxycycline hyclate [From Vibramycin] Adverse Reaction (Mild, Verified 05/30/18 08:02) made me feel drunk, couldn't walk fexofenadine HCl [From Jacquelin] Adverse Reaction (Mild, Verified 05/30/18 08:02) "dries my mouth out" lansoprazole [From Prevacid] Adverse Reaction (Mild, Verified 05/30/18 08:02) Diarrhea misoprostol [From Arthrotec 75] Adverse Reaction (Mild, Verified 05/30/18 08:02) "felt drunk, couldn't walk" Potassium Clavulanate * [From Augmentin] Adverse Reaction (Mild, Verified 05/30/18 08:02) Nausea celecoxib [From Celebrex] Adverse Reaction (Unknown, Verified 05/30/18 08:02) Heart trouble ciprofloxacin HCl [From Cipro] Adverse Reaction (Unknown, Verified 05/30/18 08:02) Sick stomach clindamycin HCl [From Cleocin] Adverse Reaction (Verified 05/30/18 08:02) Diarrhea clindamycin palmitate HCl [From Cleocin] Adverse Reaction (Verified 05/30/18 08:02) Diarrhea clindamycin phosphate [From Cleocin] Adverse Reaction (Verified 05/30/18 08:02) Diarrhea risperidone [Risperidone] Adverse Reaction (Verified 05/30/18 08:02) Past Medical History - General Information source: Patient - Social History Smoking Status: Never Smoker Frequency of alcohol use: None Drug Abuse: None Family History: Reviewed & Not Pertinent Patient has suicidal ideation: No Patient has homicidal ideation: No - Past Medical History Cardiac Medical History: Reports: Hx Atrial Fibrillation - History of Denies: Hx Coronary Artery Disease, Hx Heart Attack, Hx Hypertension Pulmonary Medical History: Reports: Hx Asthma - CAUSES CONGESTION, INHALER PRN, Hx Pneumonia - YRS AGO Denies: Hx Bronchitis, Hx COPD Neurological Medical History: Reports: Hx Migraine - visual migraines. Denies: Hx Cerebrovascular Accident, Hx Seizures Renal/ Medical History: Denies: Hx Peritoneal Dialysis GI Medical History: Reports: Hx Gastroesophageal Reflux Disease, Hx Hiatal Her po, Hx Irritable Bowel Musculoskeletal Medical History: Reports Hx Arthritis, Reports Hx Musculoskeletal Trauma - left thumb Skin Medical History: Reports Hx Psoriasis Psychiatric Medical History: Reports: Hx Anxiety, Hx Depression, Hx Post Traumatic Stress Disorder Traumatic Medical History: Reports: Hx Fractures - left thumb Past Surgical History: Reports: Hx Appendectomy, Hx Cholecystectomy, Hx Hysterectomy, Hx Orthopedic Surgery - Immunizations Immunizations up to date: Yes Hx Diphtheria, Pertussis, Tetanus Vaccination: Yes Hx Pneumococcal Vaccination: 09/19/07 Physical Exam - Vital signs Vitals: Temp Pulse Resp BP Pulse Ox 97.9 F 76 18 129/52 H 97 02/11/19 05:19 02/11/19 05:19 02/11/19 05:19 02/11/19 05:19 02/11/19 05:19 Course - Re-evaluation Re-evalutation: 02/11/19 07:48 Vitals reviewed. Nursing notes reviewed. Patient is well-appearing and in minimal distress. Her abdominal exam is soft with only mild tenderness in the epigastric region. She has no peritoneal signs or regarding. Patient denied i mprovement of symptoms after receiving Bentyl earlier when triaged. Patient was seen in the emergency room yesterday and I reviewed her visit. Patient has had a slight increase in WBC count and now has a mild leukocytosis. KUB yesterday showed some air-fluid levels that were nonspecific. Since patient symptoms have worsened CT scan was ordered. CT is consistent with acute small bowel obstruct ion. NG tube has been ordered. Patient will be admitted to the hospital for further management. Currently awaiting a callback from general surgery to discuss patient's care. Laboratory 02/11/19 02/11/19 05:52 05:52 WBC 10.6 H RBC 4.81 Hgb 14.0 Hct 41.5 MCV 86 MCH 29.0 MCHC 33.6 RDW 13.6 Plt Count 165 Seg Neutrophils % 82.8 H Lymphocytes % 9.4 L Monocytes % 6.4 Eosinophils % 0.8 Basophils % 0.6 Absolute Neutrophils 8.8 H Absolute Lymphocytes 1.0 Absolute Monocytes 0.7 Absolute Eosinophils 0.1 Absolute Basophils 0.1 Sodium 139.7 Potassium 4.3 Chloride 104 Carbon Dioxide 26 Anion Gap 10 BUN 15 Creatinine 0.66 Est GFR ( Amer) > 60 Est GFR (Non-Af Amer) > 60 Glucose 115 H Calcium 9.9 Total Bilirubin 0.8 Direct Bilirubin 0.2 Neonat Total Bilirubin Not Reportable Neonat Direct Bilirubin Not Reportable Neonat Indirect Bili Not Reportable AST 22 ALT 18 Alkaline Phosphatase 97 Total Protein 6.9 Albumin 4.0 Abdomen/Pelvis CT 02/11/19 06:12 IMPRESSION: 1. Findings compatible with small bowel obstruction with transition to decompressed loops of bowel in the right lower abdomen. Definitive transition point not definitely identified. 2. Nonobstructing right nephrolithiasis. 3. Diverticulosis without evidence of acute diverticulitis. This exam was performed according to our departmental dose-optimization program, which includes automated exposure control, adjustment of the mA and/or kV according to patient size and/or use of iterative reconstruction technique. 02/11/19 08:07 Patient's care discussed with Dr. Velásquez who will evaluate her in the emergency room and admit for further management - Vital Signs Vital signs: Temp Pulse Resp BP Pulse Ox 97.9 F 76 18 129/52 H 97 02/11/19 05:19 02/11/19 05:19 02/11/19 05:19 02/11/19 05:19 02/11/19 05:19 - Laboratory Result Diagrams: 02/11/19 05:52 02/11/19 05:52 Laboratory results interpreted by me: 02/11/19 02/11/19 05:52 05:52 WBC 10.6 H Seg Neutrophils % 82.8 H Lymphocytes % 9.4 L Absolute Neutrophils 8.8 H Glucose 115 H Discharge - Discharge Clinical Impression: Small bowel obstruction Condition: Stable Disposition: ADMITTED INPATIENT Admitting Provider: Surgicalist Unit Admitted: Surgical Floor Referrals: XOCHITL ORTIZ MD [HONORARY] - Follow up as needed
--- NOTE | 2019-02-11 08:46 | RADIOLOGY REPORT (SQ) ---
EXAM DESCRIPTION: KUB/ABDOMEN (SINGLE VIEW) COMPLETED DATE/TIME: 02/11/2019 8:23 am REASON FOR STUDY: Check Placement of NG Tube COMPARISON: 02/10/2019 NUMBER OF VIEWS: One view. TECHNIQUE: Semi-upright radiographic image of the upper abdomen acquired. LIMITATIONS: None. FINDINGS: Placement of nasogastric tube with tip overlying stomach. Appearance is otherwise unchang ed. IMPRESSION: Nasogastric tube in the stomach. Reading location - IP/workstation name: [email or web address]
[2019-02-11] MEDS ORDERED: DEXTROSE 50%-WATER 25 GM/50 ML DISP.SYRIN IV PRN ×2 (08:47)
[2019-02-11] MEDS ORDERED: DEXTROSE 40% GEL 15 GM TUBE PO PRN ×2 (08:47)
[2019-02-11] MEDS ORDERED: GLUCAGON,HUMAN RECOMB 1 MG INJ SUBCUT PRN (08:47)
[2019-02-11] MEDS ORDERED: GLYCERIN 99.5% (ANHYDROUS) 177 ML PR ONE (10:00)
[2019-02-11] MEDS ORDERED: MINERAL OIL ENEMA 133 ML PR ONE (10:00)
[2019-02-11] MEDS: FAMOTIDINE INJ/PF 20 MG/2 ML SDV IV SCH ×2 (10:50→21:29)
[2019-02-11] MEDS: ENOXAPARIN SODIUM INJ 40 MG/0.4 ML DISP.SYRIN SUBCUT SCH (10:50)
[2019-02-11] MEDS: DEXTROSE 5%-LACTATED RINGERS 1,000 ML IV PRN ×2 (10:53→23:55)
--- NOTE | 2019-02-11 12:28 | PDOC H&P ---
History of Present Illness Admission Date/PCP: 02/11/19 08:09 XOCHITL DELATORRE MD Patient complains of: Right sided abdominal pain. History of Present Illness: CODY JUSTIN is a 83 year old female, well-known to me. She has "not felt well". She has a history of chronic constipation, IBS, and chronic abdominal pain. She reports for the last 2 days her pain has been increasing. Her pain is situated on the right side. It is sharp and stabbing. She rates it as 8 out of 10. She reports abdominal distention and nausea, without vomiting. Her last bowel movement was yesterday, was loose and runny. The patient denies fevers or chills. She also denies chest pain, shortness of breath, dizziness, orthostasis, blurry vision, fatigue, rash, sore throat. Nothing makes her pain better or worse. The patient was evaluated in the emergency department. A CT scan was performed, showing distally decompressed loops of small bowel, consistent with small bowel obstruction. She has a surgical history of hysterectomy as well as cholecystectomy. Past Medical History Cardiac Medical History: Reports: Atrial Fibrillation - History of Denies: Coronary Artery Disease, Myocardial Infarction, Hypertension Pulmonary Medical History: Reports: Asthma - CAUSES CONGESTION, INHALER PRN, Pneumonia - YRS AGO Denies: Bronchitis, Chronic Obstructive Pulmonary Disease (COPD) Neurological Medical History: Reports: Migraine - visual migraines Denies: Seizures GI Medical History: Reports: Gastroesophageal Reflux Disease, Hiatal Hernia Musculoskeltal Medical History: Reports: Arthritis Skin Medical History: Reports: Psoriasis Psychiatric Medical History: Reports: Depression, Post Traumatic Stress Disorder Hematology: Denies: Anemia Past Surgical History Past Surgical History: Reports: Appendectomy, Cholecystectomy, Hysterectomy, Orthopedic Surgery Social History Smoking Status: Never Smoker Family History Family History: Reviewed & Not Pertinent Parental Family History Reviewed: Yes Children Family History Reviewed: Yes Sibling(s) Family History Reviewed.: Yes Medication/Allergy Home Medications: Levothyroxine Sodium [Synthroid] 25 mcg PO Q6AM 05/12/18 Cholecalciferol (Vitamin D3) [Vitamin D3 400 Unit Tablet] 400 unit PO DAILY 02/11/19 Clobetasol Propionate [Temovate 0.05% Topical Soln 25 Ml Bottle] 1 applic TOP BID 02/11/19 Clonazepam 0.25 mg PO Q12 02/11/19 Cyanocobalamin (Vitamin B-12) [Vitamin B-12 100 mcg Tablet] 100 mcg PO DAILY 02/11/19 Diphenhydramine HCl [Benadryl] 25 mg PO QHS 02/11/19 Estrogens,Conjugated [Premarin 0.3 Mg Tablet] 0.3 mg PO DAILY 02/11/19 Fluticasone Propionate [Flonase Nasal [place] 50 Mcg/[place] 16 gm] 2 spray NAREB DAILY 02/11/19 Linaclotide [Linzess] 72 mcg PO DAILY MDD SEE LABEL COMMENTS 02/11/19 Magnesium Hydroxide [Milk of Magnesia 30 ml Udcup] 30 ml PO QHS 02/11/19 Oxymetazoline HCl [Afrin 0.05% Nasal [place] 15 ml Bottle] 1 spray ENDO DAILYP PRN 02/11/19 Quetiapine Fumarate [Seroquel] 25 mg PO QHS 02/11/19 Allergies/Adverse Reactions: sulfamethoxazole [From Septra DS] Allergy (Intermediate, Verified 05/30/18 08:02) RASH trimethoprim [From Septra DS] Allergy (Intermediate, Verified 05/30/18 08:02) RASH aspirin [Aspirin] Allergy (Mild, Verified 05/30/18 08:02) Hives doxycycline monohydrate [From Vibramycin] Allergy (Unknown, Verified 05/30/18 08:02) made me feel drunk, couldn't walk meloxicam [From Mobic] Allergy (Unknown, Verified 05/30/18 08:02) UNKNOWN nitrofurantoin [Nitrofurantoin] Allergy (Unknown, Verified 05/30/18 08:02) Sick all over lidocaine [From Lidoderm] Allergy (Verified 05/30/18 08:02) cimetidine [From Tagamet] Adverse Reaction (Intermediate, Verified 05/30/18 08:02) YEAST cimetidine HCl [From Tagamet] Adverse Reaction (Intermediate, Verified 05/30/18 08:02) YEAST amoxicillin trihydrate [From Augmentin] Adverse Reaction (Mild, Verified 05/30/18 08:02) Nausea ciprofloxacin [From Cipro] Adverse Reaction (Mild, Verified 05/30/18 08:02) Sick stomach diclofenac sodium [From Arthrotec 75] Adverse Reaction (Mild, Verified 05/30/18 08:02) made me feel drunk doxycycline calcium [From Vibramycin] Adverse Reaction (Mild, Verified 05/30/18 08:02) made me feel drunk, couldn't walk doxycycline hyclate [From Vibramycin] Adverse Reaction (Mild, Verified 05/30/18 08:02) made me feel drunk, couldn't walk fexofenadine HCl [From Jacquelin] Adverse Reaction (Mild, Verified 05/30/18 08:02) "dries my mouth out" lansoprazole [From Prevacid] Adverse Reaction (Mild, Verified 05/30/18 08:02) Diarrhea misoprostol [From Arthrotec 75] Adverse Reaction (Mild, Verified 05/30/18 08:02) "felt drunk, couldn't walk" Potassium Clavulanate * [From Augmentin] Adverse Reaction (Mild, Verified 05/30/18 08:02) Nausea celecoxib [From Celebrex] Adverse Reaction (Unknown, Verified 05/30/18 08:02) Heart trouble ciprofloxacin HCl [From Cipro] Adverse Reaction (Unknown, Verified 05/30/18 08:02) Sick stomach clindamycin HCl [From Cleocin] Adverse Reaction (Verified 05/30/18 08:02) Diarrhea clindamycin palmitate HCl [From Cleocin] Adverse Reaction (Verified 05/30/18 08:02) Diarrhea clindamycin phosphate [From Cleocin] Adverse Reaction (Verified 05/30/18 08:02) Diarrhea risperidone [Risperidone] Adverse Reaction (Verified 05/30/18 08:02) Review of Systems Constitutional: ABSENT: chills, fatigue, fever(s), night sweats, weakness Eyes: ABSENT: visual disturbances Ears: ABSENT: hearing changes Nose, Mouth, and Throat: ABSENT: sore throat Cardiovascular: ABSENT: chest pain Respiratory: ABSENT: cough Gastrointestinal: PRESENT: abdominal pain, bloating, constipation, nausea. ABSENT: melena, vomiting Genitourinary: ABSENT: dysuria Musculoskeletal: ABSENT: back pain Integumentary: ABSENT: pruritus, rash Neurological: ABSENT: confusion, convulsions, dizziness Psychiatric: ABSENT: anxiety, depression Endocrine: ABSENT: cold intolerance, heat intolerance Hematologic/Lymphatic: ABSENT: easy bleeding, easy bruising Physical Exam Vital Signs: Temp Pulse Resp BP Pulse Ox 97.9 F 76 18 129/52 H 97 02/11/19 05:19 02/11/19 05:19 02/11/19 05:19 02/11/19 05:19 02/11/19 05:19 Intake & Output 02/10/19 02/11/19 02/12/19 06:59 06:59 06:59 Intake Total 1000 Balance 1000 Weight 58.6 kg General appearance: PRESENT: no acute distress Head exam: PRESENT: atraumatic, normocephalic Eye exam: PRESENT: EOMI, PERRLA. ABSENT: scleral icterus Mouth exam: PRESENT: neck supple Teeth exam: ABSENT: poor dentation Neck exam: ABSENT: meningismus, tenderness, thyromegaly, tracheal deviation Respiratory exam: PRESENT: clear to auscultation enedina, unlabored. ABSENT: chest wall tenderness, tachypnea, wheezes Cardiovascular exam: PRESENT: RRR Pulses: PRESENT: normal radial pulses Vascular exam: PRESENT: normal capillary refill. ABSENT: pallor GI/Abdominal exam: PRESENT: soft. ABSENT: diminished bowel sounds, distended, guarding, rebound, rigid, tenderness Rectal exam: PRESENT: deferred Extremities exam: ABSENT: clubbing Musculoskeletal exam: ABSENT: deformity Neurological exam: PRESENT: alert, awake, oriented to person, oriented to place, oriented to time, oriented to situation, CN II-XII grossly intact. ABSENT: motor sensory deficit Psychiatric exam: PRESENT: other - tangential to questioning. ABSENT: agitated, anxious Focused psych exam: ABSENT: delusional Skin exam: ABSENT: cyanosis, erythema, jaundice Results Laboratory Results: 02/11/19 05:52 02/11/19 05:52 02/11/19 02/11/19 05:52 05:52 WBC 10.6 H RBC 4.81 Hgb 14.0 Hct 41.5 MCV 86 MCH 29.0 MCHC 33.6 RDW 13.6 Plt Count 165 Seg Neutrophils % 82.8 H Lymphocytes % 9.4 L Monocytes % 6.4 Eosinophils % 0.8 Basophils % 0.6 Absolute Neutrophils 8.8 H Absolute Lymphocytes 1.0 Absolute Monocytes 0.7 Absolute Eosinophils 0.1 Absolute Basophils 0.1 Sodium 139.7 Potassium 4.3 Chloride 104 Carbon Dioxide 26 Anion Gap 10 BUN 15 Creatinine 0.66 Est GFR ( Amer) > 60 Est GFR (Non-Af Amer) > 60 Glucose 115 H Calcium 9.9 Total Bilirubin 0.8 AST 22 ALT 18 Alkaline Phosphatase 97 Total Protein 6.9 Albumin 4.0 Impressions: Abdomen/Pelvis CT 02/11/19 06:12 IMPRESSION: 1. Findings compatible with small bowel obstruction with transition to decompressed loops of bowel in the right lower abdomen. Definitive transition point not definitely identified. 2. Nonobstructing right nephrolithiasis. 3. Diverticulosis without evidence of acute diverticulitis. This exam was performed according to our departmental dose-optimization program, which includes automated exposure control, adjustment of the mA and/or kV according to patient size and/or use of iterative reconstruction technique. KUB X-Ray 02/11/19 07:37 IMPRESSION: Nasogastric tube in the stomach. Assessment & Plan - Diagnosis (1) Small bowel obstruction Is this a current diagnosis for this admission?: Yes - Plan Summary Plan Summary: This is an 83-year-old female with complaints of sharp and stabbing right-sided abdominal pain. She was evaluated by the emergency room physician and found to have a small bowel obstruction on CT scan. She has no significant abdominal tenderness on exam. She has an NG tube in place, productive of bilious fluid. The patient has a long history of chronic constipation. I will prescribe an enema for her to help evacuate any stool. I will maintain her NG tube for 24 to 48 hours. Repeat x-rays tomorrow. Hopefully, the patient will improve/progress with conservative management. If conservative management fails, surgery may be necessary. This has been discussed with the patient at [facility]. She is in agreement with the treatment plan.
[2019-02-11] MEDS: MORPHINE SULFATE 10 MG/ML INJ IV PRN (15:01)
[2019-02-11] MEDS: ONDANSETRON HCL INJ/PF 4 MG/2 ML SDV IV PRN (20:39)
[2019-02-12] MEDS: MORPHINE SULFATE 10 MG/ML INJ IV PRN (04:35)
[2019-02-12 05:58] LABS: ABSOLUTE EOSINOPHILS # (AUTO) 0.1 10^3/uL (0.0-0.6); ABSOLUTE LYMPHOCYTES (AUTO) 1.5 10^3/uL (0.5-4.7); ABSOLUTE MONOCYTES (AUTO) 0.7 10^3/uL (0.1-1.4); ABSOLUTE NEUT (AUTO) 6.9 10^3/uL (1.7-8.2); BASOPHILS % (AUTO) 0.4 % (0-2); EOSINOPHILS % (AUTO) 1.1 % (0-6); HEMATOCRIT 41.1 % (36.0-47.0); HEMOGLOBIN 13.7 g/dL (12.0-15.5); LYMPHOCYTES % (AUTO) 16.7 % (13-45); MEAN CORPUSCULAR HEMOGLOBIN 29.2 pg (27.0-33.4); MEAN CORPUSCULAR HGB CONC 33.4 g/dL (32.0-36.0); MEAN CORPUSCULAR VOLUME 87 fl (80-97); MONOCYTES % (AUTO) 7.3 % (3-13); PLATELET COUNT 166 10^3/uL (150-450); SEGMENTED NEUTROPHILS % (AUTO) 74.5 % (42-78); TOTAL CELLS COUNTED % (AUTO) 100 %; WHITE BLOOD COUNT 9.3 10^3/uL (4.0-10.5)
[2019-02-12 06:13] LABS: ANION GAP 8 (5-19); BLOOD UREA NITROGEN 12 mg/dL (7-20); CALCIUM 9.4 mg/dL (8.4-10.2); CARBON DIOXIDE 29 mmol/L (22-30); CHLORIDE 103 mmol/L (98-107); GLUCOSE 119 mg/dL (75-110); POTASSIUM 3.8 mmol/L (3.6-5.0); SODIUM 140.1 mmol/L (137-145)
[2019-02-12] MEDS: ONDANSETRON HCL INJ/PF 4 MG/2 ML SDV IV PRN (08:20)
[2019-02-12] MEDS: FAMOTIDINE INJ/PF 20 MG/2 ML SDV IV SCH ×2 (09:23→21:08)
[2019-02-12] MEDS: ENOXAPARIN SODIUM INJ 40 MG/0.4 ML DISP.SYRIN SUBCUT SCH (09:24)
--- NOTE | 2019-02-12 10:24 | RADIOLOGY REPORT (SQ) ---
EXAM DESCRIPTION: ABDOMEN 2 VIEWS COMPLETED DATE/TIME: 02/12/2019 8:57 am REASON FOR STUDY: flat and upright for SBO COMPARISON: CT abdomen and pelvis 02/10/2019, 09/09/2017 Abdominal films 02/11/2019, 02/10/2019 NUMBER OF VIEWS: Two views. TECHNIQUE: Supine and upright radiographic images of the abdomen acquired. LIMITATIONS: None. FINDINGS: FREE AIR: None. No abnormal gas collections. LUNG BASES: Clear. BOWEL GAS PATTERN: Hiatal hernia in the retrocardiac region containing the stomach fundus. Nasogastr ic tube tip and side port in the stomach. Stomach is decompressed. There are few persistent air-fluid levels in nondistended small bowel in the mid abdomen, nonspecific . No dilated colon. Small amount of stool in the ascending colon. CALCIFICATIONS: No suspicious calcifications. SOFT TISSUES: No gross mass or suggestion of organomegaly. HARDWARE: Clips right upper quadrant post cholecystectomy. Surgical clips in the right lower quadran t post appendectomy BONES: Lower lumbar degenerative disc changes and facet arthropathy OTHER: No other significant finding. IMPRESSION: Nonspecific nonobstructive bowel gas pattern with few air-filled nondistended small corey l loops in the mid epigastrium. Nasogastric tube tip and side port in the stomach TECHNICAL DOCUMENTATION: JOB ID: [id number] [employer]- All Rights Reserved Reading location - IP/workstation name: [email or web address]
[2019-02-12] MEDS: DEXTROSE 5%-LACTATED RINGERS 1,000 ML IV PRN (10:52)
--- NOTE | 2019-02-12 11:36 | PDOC PROGRESS REPORT ---
Subjective Progress Note for:: 02/12/19 Subjective:: Patient states she feels better. Nasogastric tube draining minimal material. She has not had any flatus or stool. Reason For Visit: SMALL BOWEL OBSTRUCTION Physical Exam Vital Signs: Temp Pulse Resp BP Pulse Ox 98.3 F 69 18 119/51 L 97 02/12/19 07:38 02/12/19 07:38 02/12/19 07:38 02/12/19 07:38 02/12/19 07:38 Intake & Output 02/11/19 02/12/19 02/13/19 06:59 06:59 06:59 Intake Total 1720 Output Total 550 Balance 1720 -550 Weight 58.6 kg 55.8 kg General appearance: PRESENT: no acute distress GI/Abdominal exam: PRESENT: other - Soft, nontender no distention no peritoneal signs. Results Laboratory Results: 02/12/19 04:45 02/12/19 04:45 02/12/19 02/12/19 04:45 04:45 WBC 9.3 RBC 4.70 Hgb 13.7 Hct 41.1 MCV 87 MCH 29.2 MCHC 33.4 RDW 14.0 Plt Count 166 Seg Neutrophils % 74.5 Lymphocytes % 16.7 Monocytes % 7.3 Eosinophils % 1.1 Basophils % 0.4 Absolute Neutrophils 6.9 Absolute Lymphocytes 1.5 Absolute Monocytes 0.7 Absolute Eosinophils 0.1 Absolute Basophils 0.0 Sodium 140.1 Potassium 3.8 Chloride 103 Carbon Dioxide 29 Anion Gap 8 BUN 12 Creatinine 0.54 Est GFR ( Amer) > 60 Est GFR (Non-Af Amer) > 60 Glucose 119 H Calcium 9.4 Impressions: Abdomen/Pelvis CT 02/11/19 06:12 IMPRESSION: 1. Findings compatible with small bowel obstruction with transition to decompressed loops of bowel in the right lower abdomen. Definitive transition point not definitely identified. 2. Nonobstructing right nephrolithiasis. 3. Diverticulosis without evidence of acute diverticulitis. This exam was performed according to our departmental dose-optimization program, which includes automated exposure control, adjustment of the mA and/or kV according to patient size and/or use of iterative reconstruction technique. KUB X-Ray 02/11/19 07:37 IMPRESSION: Nasogastric tube in the stomach. Abdomen X-Ray 02/12/19 06:00 IMPRESSION: Nonspecific nonobstructive bowel gas pattern with few air-filled nondistended small bowel loops in the mid epigastrium. Nasogastric tube tip and side port in the stomach Assessment & Plan - Diagnosis (1) Small bowel obstruction Is this a current diagnosis for this admission?: Yes Plan: Impression: Clinically improved; abdominal x-ray today shows improved bowel gas pattern. All labs within normal limits Recommendations: 1. Encourage ambulation; consider clamping nasogastric tube and removing tube if tolerated later today 2. I explained to patient that there was no indication for surgical intervention at this time.
[2019-02-12] MEDS ORDERED: OXYMETAZOLINE HCL 0.05% NASAL SPRAY 15 ML BOTTLE NASL PRN (11:58)
[2019-02-12] MEDS: CLONAZEPAM 1 MG TABLET PO SCH ×2 (13:15→21:08)
[2019-02-12] MEDS: LEVOTHYROXINE SODIUM 0.025 MG TABLET PO SCH (13:15)
[2019-02-12] MEDS: ESTROGENS,CONJUGATED 0.3 MG TABLET PO SCH (17:02)
[2019-02-12] MEDS: CLOBETASOL PROPIONATE 0.05% TOPICAL SOLN 25 ML TOP SCH (17:03)
[2019-02-12] MEDS: DIPHENHYDRAMINE HCL 25 MG CAPSULE PO SCH (21:07)
[2019-02-12] MEDS: MAGNESIUM HYDROXIDE SUSP 30 ML UDCUP PO SCH (21:08)
[2019-02-12] MEDS: QUETIAPINE FUMARATE 25 MG TABLET PO SCH (21:08)
[2019-02-13] MEDS: DEXTROSE 5%-LACTATED RINGERS 1,000 ML IV PRN ×2 (00:02→10:07)
[2019-02-13] MEDS: MORPHINE SULFATE 10 MG/ML INJ IV PRN (05:42)
[2019-02-13] MEDS: LEVOTHYROXINE SODIUM 0.025 MG TABLET PO SCH (05:42)
[2019-02-13] MEDS ORDERED: MORPHINE SULFATE 10 MG/ML INJ IV PRN (08:22)
--- NOTE | 2019-02-13 08:31 | PDOC PROGRESS REPORT ---
Subjective Progress Note for:: 02/13/19 Subjective:: feels well now, however recieved ms 4mg about 2 hrs ago took her own ex-lax last pm no flatus or stool since admission Reason For Visit: SMALL BOWEL OBSTRUCTION Physical Exam Vital Signs: Temp Pulse Resp BP Pulse Ox 98.3 F 82 16 146/75 H 100 02/12/19 23:40 02/12/19 23:40 02/12/19 23:40 02/12/19 23:40 02/12/19 23:40 Intake & Output 02/12/19 02/13/19 02/14/19 06:59 06:59 06:59 Intake Total 1720 410 Output Total 550 Balance 1720 -140 Weight 55.8 kg 55.1 kg General appearance: PRESENT: no acute distress Head exam: PRESENT: normocephalic Eye exam: PRESENT: EOMI Ear exam: PRESENT: normal external ear exam Mouth exam: PRESENT: moist Teeth exam: PRESENT: poor dentation Neck exam: PRESENT: full ROM Respiratory exam: PRESENT: clear to auscultation enedina Cardiovascular exam: PRESENT: RRR Pulses: PRESENT: normal radial pulses, normal femoral pulses GI/Abdominal exam: PRESENT: hyperactive bowel sounds, soft Rectal exam: PRESENT: deferred Extremities exam: PRESENT: full ROM Neurological exam: PRESENT: alert, awake Skin exam: PRESENT: dry Results Laboratory Results: 02/12/19 04:45 02/12/19 04:45 Impressions: Abdomen/Pelvis CT 02/11/19 06:12 IMPRESSION: 1. Findings compatible with small bowel obstruction with transition to decompressed loops of bowel in the right lower abdomen. Definitive transition point not definitely identified. 2. Nonobstructing right nephrolithiasis. 3. Diverticulosis without evidence of acute diverticulitis. This exam was performed according to our departmental dose-optimization program, which includes automated exposure control, adjustment of the mA and/or kV according to patient size and/or use of iterative reconstruction technique. KUB X-Ray 02/11/19 07:37 IMPRESSION: Nasogastric tube in the stomach. Abdomen X-Ray 02/12/19 06:00 IMPRESSION: Nonspecific nonobstructive bowel gas pattern with few air-filled nondistended small bowel loops in the mid epigastrium. Nasogastric tube tip and side port in the stomach Assessment & Plan - Diagnosis (1) Small bowel obstruction Is this a current diagnosis for this admission?: Yes - Plan Summary Plan Summary: small bowel obstruction pt started on clears yesterdy, just getting her first tray this am took her own exlax last pm has not passed stool or flatus last kub, non specific plan soap suds enema ok to cont clears considered small bowel series with gastrografin however pt refused will dc morphine. if she cont to have pain, will possibly need surgery.
[2019-02-13] MEDS ORDERED: FLUTICASONE NASAL SPRAY 50 MCG/SPRY 120 SPRAY/16 GM NAREB SCH (10:00)
[2019-02-13] MEDS ORDERED: (PENDING PHARMACY ID) (Linaclotide [Linzess] 72 MCG) PO SCH (10:00)
[2019-02-13] MEDS ORDERED: (PENDING PHARMACY ID) (Cyanocobalamin (Vitamin B-12) [Vitamin B-12 100 Mcg Tablet] 100 MCG PO SCH (10:00)
[2019-02-13] MEDS ORDERED: CHOLECALCIFEROL (D3) 400 UNIT TABLET PO SCH (10:00)
[2019-02-13] MEDS: ESTROGENS,CONJUGATED 0.3 MG TABLET PO SCH (10:09)
[2019-02-13] MEDS: CLONAZEPAM 1 MG TABLET PO SCH ×2 (10:09→21:15)
[2019-02-13] MEDS: FAMOTIDINE INJ/PF 20 MG/2 ML SDV IV SCH ×2 (10:13→21:15)
[2019-02-13] MEDS: ENOXAPARIN SODIUM INJ 40 MG/0.4 ML DISP.SYRIN SUBCUT SCH (10:14)
[2019-02-13] MEDS: CLOBETASOL PROPIONATE 0.05% TOPICAL SOLN 25 ML TOP SCH ×2 (10:14→17:29)
[2019-02-13] MEDS: ONDANSETRON HCL INJ/PF 4 MG/2 ML SDV IV PRN ×2 (11:03→15:03)
--- NOTE | 2019-02-13 17:29 | RADIOLOGY REPORT (SQ) ---
EXAM DESCRIPTION: KUB/ABDOMEN (SINGLE VIEW) COMPLETED DATE/TIME: 02/13/2019 5:18 pm REASON FOR STUDY: Check Placement of NG Tube COMPARISON: KUB 02/12/2019, 02/11/2019, 02/10/2019 NUMBER OF VIEWS: One view. TECHNIQUE: Supine radiographic image of the abdomen acquired. LIMITATIONS: Film for nasogastric tube placement, pelvis cropped from the field of view FINDINGS: Nasogastric tube tip and side port in the stomach. Few air-filled nondistended small bowel loops with air-fluid levels on upright view persist. Lung bases are clear IMPRESSION: Nasogastric tube tip and side port in the stomach TECHNICAL DOCUMENTATION: JOB ID: [id number] [employer]- All Rights Reserved Reading location - IP/workstation name: [email or web address]
[2019-02-13] MEDS: DIPHENHYDRAMINE HCL 25 MG CAPSULE PO SCH (21:15)
[2019-02-13] MEDS: MAGNESIUM HYDROXIDE SUSP 30 ML UDCUP PO SCH (21:15)
[2019-02-13] MEDS: QUETIAPINE FUMARATE 25 MG TABLET PO SCH (21:15)
[2019-02-14] MEDS: LEVOTHYROXINE SODIUM 0.025 MG TABLET PO SCH (06:06)
[2019-02-14] MEDS: ONDANSETRON HCL INJ/PF 4 MG/2 ML SDV IV PRN ×2 (06:56→14:01)
[2019-02-14] MEDS: FAMOTIDINE INJ/PF 20 MG/2 ML SDV IV SCH ×2 (09:38→21:13)
[2019-02-14] MEDS: CLOBETASOL PROPIONATE 0.05% TOPICAL SOLN 25 ML TOP SCH ×2 (09:40→18:21)
[2019-02-14] MEDS: ENOXAPARIN SODIUM INJ 40 MG/0.4 ML DISP.SYRIN SUBCUT SCH (10:00)
[2019-02-14] MEDS: ESTROGENS,CONJUGATED 0.3 MG TABLET PO SCH (10:21)
--- NOTE | 2019-02-14 10:21 | PDOC PROGRESS REPORT ---
Subjective Progress Note for:: 02/14/19 Subjective:: Patient feeling some better with nasogastric tube in position. Denies flatus. Has a lot of questions. Reason For Visit: SMALL BOWEL OBSTRUCTION Physical Exam Vital Signs: Temp Pulse Resp BP Pulse Ox 98.9 F 93 20 137/57 H 92 02/14/19 08:00 02/14/19 08:00 02/14/19 08:00 02/14/19 08:00 02/14/19 08:00 Intake & Output 02/13/19 02/14/19 02/15/19 06:59 06:59 06:59 Intake Total 410 390 Output Total 550 1500 Balance -140 -1110 Weight 55.1 kg 55.7 kg General appearance: PRESENT: no acute distress, other - Orangeyellow gastric contents. GI/Abdominal exam: PRESENT: other - Abdomen is soft slightly distended hypoactive bowel sounds no peritoneal signs no rigidity Results Laboratory Results: 02/12/19 04:45 02/12/19 04:45 Impressions: Abdomen/Pelvis CT 02/11/19 06:12 IMPRESSION: 1. Findings compatible with small bowel obstruction with transition to decompressed loops of bowel in the right lower abdomen. Definitive transition point not definitely identified. 2. Nonobstructing right nephrolithiasis. 3. Diverticulosis without evidence of acute diverticulitis. This exam was performed according to our departmental dose-optimization program, which includes automated exposure control, adjustment of the mA and/or kV according to patient size and/or use of iterative reconstruction technique. Abdomen X-Ray 02/12/19 06:00 IMPRESSION: Nonspecific nonobstructive bowel gas pattern with few air-filled nondistended small bowel loops in the mid epigastrium. Nasogastric tube tip and side port in the stomach KUB X-Ray 02/13/19 16:36 IMPRESSION: Nasogastric tube tip and side port in the stomach Assessment & Plan - Diagnosis (1) Small bowel obstruction Is this a current diagnosis for this admission?: Yes Plan: Impression: Suspect partial distal small bowel obstruction, clinically improved with nasogastric decompression. No clinical evidence of an acute abdomen. Conditions: 1. Keep n.p.o., nasogastric tube and IV fluids 2. We will obtain a Gastrografin swallow to rule out a mechanical obstruction requiring surgical intervention. This was discussed with patient at length. I explained to her she may very well require exploratory laparotom; We will need to address her nutritional status, so she may require a central line and TPN in the next 24 hours.
[2019-02-14] MEDS: CLONAZEPAM 1 MG TABLET PEG SCH ×2 (10:24→21:13)
[2019-02-14] MEDS: CHOLECALCIFEROL (D3) 400 UNIT TABLET PEG SCH (10:26)
[2019-02-14] MEDS ORDERED: CARBOXYMETHYLCELLULOSE SOD 0.5% 0.4 ML DROPERETTE OU PRN (10:55)
[2019-02-14 11:04] LABS: ABSOLUTE LYMPHOCYTES (AUTO) 0.9 10^3/uL (0.5-4.7); ABSOLUTE MONOCYTES (AUTO) 0.6 10^3/uL (0.1-1.4); ABSOLUTE NEUT (AUTO) 8.8 10^3/uL (1.7-8.2); BASOPHILS % (AUTO) 0.4 % (0-2); EOSINOPHILS % (AUTO) 0.5 % (0-6); HEMATOCRIT 37.3 % (36.0-47.0); HEMOGLOBIN 12.6 g/dL (12.0-15.5); LYMPHOCYTES % (AUTO) 8.6 % (13-45); MEAN CORPUSCULAR HEMOGLOBIN 29.2 pg (27.0-33.4); MEAN CORPUSCULAR HGB CONC 33.8 g/dL (32.0-36.0); MEAN CORPUSCULAR VOLUME 86 fl (80-97); MONOCYTES % (AUTO) 5.9 % (3-13); RED BLOOD COUNT 4.31 10^6/uL (3.72-5.28); RED CELL DISTRIBUTION WIDTH 14.1 % (11.5-14.0); SEGMENTED NEUTROPHILS % (AUTO) 84.6 % (42-78); TOTAL CELLS COUNTED % (AUTO) 100 %; WHITE BLOOD COUNT 10.4 10^3/uL (4.0-10.5)
[2019-02-14 11:20] LABS: PLATELET COUNT 110 10^3/uL (150-450)
[2019-02-14 11:21] LABS: ANION GAP 6 (5-19); BLOOD UREA NITROGEN 16 mg/dL (7-20); CALCIUM 8.8 mg/dL (8.4-10.2); CARBON DIOXIDE 38 mmol/L (22-30); CHLORIDE 95 mmol/L (98-107); GLUCOSE 139 mg/dL (75-110); POTASSIUM 3.1 mmol/L (3.6-5.0); SODIUM 138.7 mmol/L (137-145)
[2019-02-14] MEDS: DEXTROSE 5%-LACTATED RINGERS 1,000 ML IV PRN (18:26)
[2019-02-14] MEDS: FLUTICASONE NASAL SPRAY 50 MCG/SPRY 120 SPRAY/16 GM NAREB SCH (21:12)
[2019-02-14] MEDS: DIPHENHYDRAMINE HCL 25 MG/10 ML UDC PEG SCH (21:12)
[2019-02-14] MEDS: QUETIAPINE FUMARATE 25 MG TABLET PEG SCH (21:13)
[2019-02-14] MEDS: MAGNESIUM HYDROXIDE SUSP 30 ML UDCUP PEG SCH (21:14)
--- NOTE | 2019-02-15 08:49 | RADIOLOGY REPORT (SQ) ---
EXAM DESCRIPTION: SMALL BOWEL SERIES COMPLETED DATE/TIME: 02/14/2019 4:33 pm REASON FOR STUDY: small bowel follow through COMPARISON: CT abdomen pelvis 02/11/2019 Abdominal films 02/12/2019, 02/13/2019 FLUOROSCOPY TIME: No fluoroscopy time 10 KUB images saved to PACS. LIMITATIONS: None. PROCEDURE: Initial glass embosser image of abdomen acquired, followed by administration of oral contrast. Se rial radiographic images acquired. Fluoroscopic images recorded of the terminal ileum and other james cated areas. All images stored on PACS. FINDINGS: Ad Terminal Makeup Operator film demonstrates clips in the right upper quadrant post cholecystectomy, clips in t he right lower quadrant likely post appendectomy, and a nasogastric tube with the tip and side port i n the stomach. Thin liquid barium was instilled through the patient's nasogastric tube. Serial films up to 4 hours were obtained. Oral contrast fills a distended stomach with retrocardiac hiatal hernia, distended duodenum. The jejunum and ileum are distended. At the 4 hour film, only trace amount of barium bypasses the surgical clips in the right lower quadra nt to enter the ascending colon. Findings are worrisome for high-grade partial small-bowel obstructi on at the level of the surgical clips in the right lower quadrant. These findings were discussed wit h Dr. Christianson 1640 hours 02/14/2019. IMPRESSION: High-grade distal partial small bowel obstruction at the level of the surgical clips in the right lower quadrant. COMMENT: Quality ID [id number]: Final reports for procedures using fluoroscopy that document radiation exp osure indices, or exposure time and number of fluorographic images (if radiation exposure indices are not available) TECHNICAL DOCUMENTATION: JOB ID: [id number] [employer]- All Rights Reserved Reading location - IP/workstation name: [email or web address]
[2019-02-15] MEDS: ENOXAPARIN SODIUM INJ 40 MG/0.4 ML DISP.SYRIN SUBCUT SCH (10:00)
--- NOTE | 2019-02-15 10:09 | PDOC PROGRESS REPORT ---
Subjective Progress Note for:: 02/15/19 Subjective:: Patient had difficulty keeping the contrast yesterday. Small bowel series concluded this morning middle film showing contrast in the colon, and mildly dilated interval small bowel. Patient denies stool or gas. Reason For Visit: SMALL BOWEL OBSTRUCTION Physical Exam Vital Signs: Temp Pulse Resp BP Pulse Ox 98.6 F 88 16 134/53 H 93 02/14/19 19:00 02/14/19 19:00 02/14/19 19:00 02/14/19 19:00 02/14/19 19:00 Intake & Output 02/14/19 02/15/19 02/16/19 06:59 06:59 06:59 Intake Total 390 Output Total 1500 1250 Balance -1110 -1250 Weight 55.7 kg 54.3 kg General appearance: PRESENT: no acute distress GI/Abdominal exam: PRESENT: other - The abdomen is nontender; there are no p eritoneal signs no rigidity. There is minimal abdominal distention Results Laboratory Results: 02/14/19 10:50 02/14/19 10:50 02/14/19 02/14/19 10:50 10:50 WBC 10.4 RBC 4.31 Hgb 12.6 Hct 37.3 MCV 86 MCH 29.2 MCHC 33.8 RDW 14.1 H Plt Count 110 L Seg Neutrophils % 84.6 H Lymphocytes % 8.6 L Monocytes % 5.9 Eosinophils % 0.5 Basophils % 0.4 Absolute Neutrophils 8.8 H Absolute Lymphocytes 0.9 Absolute Monocytes 0.6 Absolute Eosinophils 0.0 Absolute Basophils 0.0 Sodium 138.7 Potassium 3.1 L Chloride 95 L Carbon Dioxide 38 H Anion Gap 6 BUN 16 Creatinine 0.67 Est GFR ( Amer) > 60 Est GFR (Non-Af Amer) > 60 Glucose 139 H Calcium 8.8 Impressions: Abdomen/Pelvis CT 02/11/19 06:12 IMPRESSION: 1. Findings compatible with small bowel obstruction with transition to decompressed loops of bowel in the right lower abdomen. Definitive transition point not definitely identified. 2. Nonobstructing right nephrolithiasis. 3. Diverticulosis without evidence of acute diverticulitis. This exam was performed according to our departmental dose-optimization program, which includes automated exposure control, adjustment of the mA and/or kV according to patient size and/or use of iterative reconstruction technique. Abdomen X-Ray 02/12/19 06:00 IMPRESSION: Nonspecific nonobstructive bowel gas pattern with few air-filled nondistended small bowel loops in the mid epigastrium. Nasogastric tube tip and side port in the stomach Small Bowel X-Ray 02/14/19 09:20 IMPRESSION: High-grade distal partial small bowel obstruction at the level of the surgical clips in the right lower quadrant. Assessment & Plan - Diagnosis (1) Small bowel obstruction Is this a current diagnosis for this admission?: Yes (2) Epigastric abdominal pain Is this a current diagnosis for this admission?: Yes Plan: Impression: Intermittent small bowel obstruction, now shown to be clearing on upper GI with small bowel follow-through with contrast in the colon; suspect partial obstruction, versus dystonic colon, versus element of constipation. No clear indication for exploratory surgery this morning. Recommendations: 1. To new nasogastric decompression. Will order cathartics from below. 2. Continue IV fluids
[2019-02-15] MEDS: FAMOTIDINE INJ/PF 20 MG/2 ML SDV IV SCH ×2 (10:17→21:36)
[2019-02-15] MEDS: ESTROGENS,CONJUGATED 0.3 MG TABLET PO SCH (10:19)
[2019-02-15] MEDS: CHOLECALCIFEROL (D3) 400 UNIT TABLET PEG SCH (10:20)
[2019-02-15] MEDS: LEVOTHYROXINE SODIUM 0.025 MG TABLET PEG SCH (10:20)
[2019-02-15] MEDS: CLOBETASOL PROPIONATE 0.05% TOPICAL SOLN 25 ML TOP SCH ×2 (10:21→18:12)
[2019-02-15] MEDS: CLONAZEPAM 1 MG TABLET PEG SCH ×2 (10:21→21:35)
--- NOTE | 2019-02-15 10:28 | RADIOLOGY REPORT (SQ) ---
EXAM DESCRIPTION: KUB/ABDOMEN (SINGLE VIEW) COMPLETED DATE/TIME: 02/15/2019 9:04 am REASON FOR STUDY: recheck for sbo COMPARISON: Small bowel follow-through study 02/14/2019 CT abdomen pelvis 02/11/2019 Abdominal films 02/13/2019, 02/12/2019, 02/11/2019, 02/10/2019 NUMBER OF VIEWS: One view. TECHNIQUE: Supine radiographic image of the abdomen acquired. LIMITATIONS: None. FINDINGS: BOWEL GAS PATTERN: Barium given for small-bowel follow-through pools in mildly dilated sma ll bowel loops in the mid abdomen. A small amount of the barium bypasses distal small bowel loops in the right lower quadrant, with a sm all amount of barium now in the ascending, transverse, and descending colon. These findings are worrisome for persistent partial small bowel obstruction. Findings discussed with Dr. Christianson CALCIFICATIONS: No suspicious calcifications. SOFT TISSUES: No gross mass or suggestion of organomegaly. HARDWARE: NG tube tip in the stomach. Right upper quadrant and right lower quadrant surgical clips. BONES: No acute fracture. No worrisome bone lesions. OTHER: No other significant finding. IMPRESSION: Findings worrisome for persistent partial small bowel obstruction TECHNICAL DOCUMENTATION: JOB ID: [id number] [employer]- All Rights Reserved Reading location - IP/workstation name: [email or web address]
[2019-02-15] MEDS ORDERED: PHENOL/SODIUM PHENOLATE 100 SPRAY/177 ML BOTTLE PO PRN (13:08)
[2019-02-15] MEDS: DEXTROSE 5%-LACTATED RINGERS 1,000 ML IV PRN (15:24)
[2019-02-15] MEDS: MAGNESIUM HYDROXIDE SUSP 30 ML UDCUP PEG SCH (21:35)
[2019-02-15] MEDS: DIPHENHYDRAMINE HCL 25 MG/10 ML UDC PEG SCH (21:35)
[2019-02-15] MEDS: QUETIAPINE FUMARATE 25 MG TABLET PEG SCH (21:36)
[2019-02-15] MEDS: FLUTICASONE NASAL SPRAY 50 MCG/SPRY 120 SPRAY/16 GM NAREB SCH (21:37)
[2019-02-16 05:16] LABS: BLOOD UREA NITROGEN 27 mg/dL (7-20); CALCIUM 9.1 mg/dL (8.4-10.2); GLUCOSE 111 mg/dL (75-110)
[2019-02-16 05:42] LABS: CARBON DIOXIDE 38 mmol/L (22-30); CHLORIDE 101 mmol/L (98-107); SODIUM 143.4 mmol/L (137-145)
[2019-02-16 05:56] LABS: ANION GAP 4 (5-19)
[2019-02-16 05:58] LABS: POTASSIUM 2.9 mmol/L (3.6-5.0)
[2019-02-16] MEDS: POTASSI CL 20 MEQ/50 ML RIDER 20 MEQ/50 ML RTUPB IV SCH ×4 (06:34→14:40)
[2019-02-16] MEDS: LEVOTHYROXINE SODIUM 0.025 MG TABLET PEG SCH (06:34)
--- NOTE | 2019-02-16 09:10 | PDOC PROGRESS REPORT ---
Subjective Progress Note for:: 02/16/19 Subjective:: no pains at this time. Denies flatus/BM Thirsty. Increase IVF Reason For Visit: SMALL BOWEL OBSTRUCTION Physical Exam Vital Signs: Temp Pulse Resp BP Pulse Ox 98.4 F 74 16 99/64 L 96 02/16/19 04:00 02/16/19 04:00 02/16/19 04:00 02/16/19 04:00 02/16/19 04:00 Intake & Output 02/15/19 02/16/19 02/17/19 06:59 06:59 06:59 Intake Total 850 Output Total 1250 550 Balance -1250 300 Weight 54.3 kg Exam: Abdomen is soft and non tender. mild distention Results Laboratory Results: 02/14/19 10:50 02/16/19 04:07 02/16/19 04:07 Sodium 143.4 Potassium 2.9 L* Chloride 101 Carbon Dioxide 38 H Anion Gap 4 L BUN 27 H Creatinine 0.60 Est GFR ( Amer) > 60 Est GFR (Non-Af Amer) > 60 Glucose 111 H Calcium 9.1 Impressions: Abdomen/Pelvis CT 02/11/19 06:12 IMPRESSION: 1. Findings compatible with small bowel obstruction with transition to decompressed loops of bowel in the right lower abdomen. Definitive transition point not definitely identified. 2. Nonobstructing right nephrolithiasis. 3. Diverticulosis without evidence of acute diverticulitis. This exam was performed according to our departmental dose-optimization program, which includes automated exposure control, adjustment of the mA and/or kV according to patient size and/or use of iterative reconstruction technique. Abdomen X-Ray 02/12/19 06:00 IMPRESSION: Nonspecific nonobstructive bowel gas pattern with few air-filled nondistended small bowel loops in the mid epigastrium. Nasogastric tube tip and side port in the stomach Small Bowel X-Ray 02/14/19 09:20 IMPRESSION: High-grade distal partial small bowel obstruction at the level of the surgical clips in the right lower quadrant. KUB X-Ray 02/15/19 00:00 IMPRESSION: Findings worrisome for persistent partial small bowel obstruction Assessment & Plan - Diagnosis (1) Small bowel obstruction Is this a current diagnosis for this admission?: Yes - Time Time Spent with patient: 15-24 minutes - Inpatient Certification Medical Necessity: Need For IV Fluids, Risk of Complication if Not Cared For in Hospital - Plan Summary Plan Summary: Keep NGT until passage of flatus Coreect lytes Increase IVF
[2019-02-16] MEDS: ENOXAPARIN SODIUM INJ 40 MG/0.4 ML DISP.SYRIN SUBCUT SCH (09:17)
[2019-02-16] MEDS: FAMOTIDINE INJ/PF 20 MG/2 ML SDV IV SCH ×2 (09:27→22:33)
[2019-02-16] MEDS: CLONAZEPAM 1 MG TABLET PEG SCH ×2 (09:27→22:33)
[2019-02-16] MEDS: CHOLECALCIFEROL (D3) 400 UNIT TABLET PEG SCH (09:27)
[2019-02-16] MEDS: CLOBETASOL PROPIONATE 0.05% TOPICAL SOLN 25 ML TOP SCH ×2 (10:02→17:22)
[2019-02-16] MEDS: ESTROGENS,CONJUGATED 0.3 MG TABLET PO SCH (12:00)
[2019-02-16] MEDS: ONDANSETRON HCL INJ/PF 4 MG/2 ML SDV IV PRN (14:09)
[2019-02-16] MEDS: NORMAL SALINE 1000 ML 1,000 ML IV PRN ×2 (14:13→22:34)
[2019-02-16] MEDS: FLUTICASONE NASAL SPRAY 50 MCG/SPRY 120 SPRAY/16 GM NAREB SCH (22:31)
[2019-02-16] MEDS: DIPHENHYDRAMINE HCL 25 MG/10 ML UDC PEG SCH (22:32)
[2019-02-16] MEDS: MAGNESIUM HYDROXIDE SUSP 30 ML UDCUP PEG SCH (22:32)
[2019-02-16] MEDS: QUETIAPINE FUMARATE 25 MG TABLET PEG SCH (22:33)
[2019-02-17] MEDS: LEVOTHYROXINE SODIUM 0.025 MG TABLET PEG SCH (05:42)
[2019-02-17 07:29] LABS: ABSOLUTE EOSINOPHILS # (AUTO) 0.2 10^3/uL (0.0-0.6); ABSOLUTE LYMPHOCYTES (AUTO) 1.1 10^3/uL (0.5-4.7); ABSOLUTE MONOCYTES (AUTO) 0.6 10^3/uL (0.1-1.4); ABSOLUTE NEUT (AUTO) 2.9 10^3/uL (1.7-8.2); BASOPHILS % (AUTO) 0.6 % (0-2); EOSINOPHILS % (AUTO) 3.7 % (0-6); HEMATOCRIT 34.9 % (36.0-47.0); HEMOGLOBIN 11.7 g/dL (12.0-15.5); LYMPHOCYTES % (AUTO) 22.8 % (13-45); MEAN CORPUSCULAR HEMOGLOBIN 29.1 pg (27.0-33.4); MEAN CORPUSCULAR HGB CONC 33.4 g/dL (32.0-36.0); MEAN CORPUSCULAR VOLUME 87 fl (80-97); MONOCYTES % (AUTO) 13.1 % (3-13); PLATELET COUNT 162 10^3/uL (150-450); RED BLOOD COUNT 4.01 10^6/uL (3.72-5.28); RED CELL DISTRIBUTION WIDTH 13.7 % (11.5-14.0); SEGMENTED NEUTROPHILS % (AUTO) 59.8 % (42-78); TOTAL CELLS COUNTED % (AUTO) 100 %; WHITE BLOOD COUNT 4.8 10^3/uL (4.0-10.5)
[2019-02-17 07:55] LABS: ANION GAP 7 (5-19); BLOOD UREA NITROGEN 28 mg/dL (7-20); CALCIUM 8.9 mg/dL (8.4-10.2); CARBON DIOXIDE 27 mmol/L (22-30); CHLORIDE 109 mmol/L (98-107); GLUCOSE 112 mg/dL (75-110); POTASSIUM 3.7 mmol/L (3.6-5.0); SODIUM 142.7 mmol/L (137-145)
[2019-02-17] MEDS: ENOXAPARIN SODIUM INJ 40 MG/0.4 ML DISP.SYRIN SUBCUT SCH (10:39)
[2019-02-17] MEDS: CLONAZEPAM 1 MG TABLET PEG SCH ×2 (10:39→22:02)
[2019-02-17] MEDS: CHOLECALCIFEROL (D3) 400 UNIT TABLET PEG SCH (10:40)
[2019-02-17] MEDS: ESTROGENS,CONJUGATED 0.3 MG TABLET PO SCH (10:40)
[2019-02-17] MEDS: FAMOTIDINE INJ/PF 20 MG/2 ML SDV IV SCH ×2 (10:40→22:03)
[2019-02-17] MEDS: ONDANSETRON HCL INJ/PF 4 MG/2 ML SDV IV PRN ×2 (10:47→22:11)
[2019-02-17] MEDS: CLOBETASOL PROPIONATE 0.05% TOPICAL SOLN 25 ML TOP SCH ×2 (10:52→17:02)
[2019-02-17] MEDS: DIPHENHYDRAMINE HCL 25 MG/10 ML UDC PEG SCH (22:01)
[2019-02-17] MEDS: QUETIAPINE FUMARATE 25 MG TABLET PEG SCH (22:02)
[2019-02-17] MEDS: FLUTICASONE NASAL SPRAY 50 MCG/SPRY 120 SPRAY/16 GM NAREB SCH (22:02)
[2019-02-17] MEDS: MAGNESIUM HYDROXIDE SUSP 30 ML UDCUP PEG SCH (22:02)
[2019-02-18] MEDS: LEVOTHYROXINE SODIUM 0.025 MG TABLET PEG SCH (06:05)
[2019-02-18] MEDS: ONDANSETRON HCL INJ/PF 4 MG/2 ML SDV IV PRN ×2 (06:48→10:50)
[2019-02-18] MEDS: CLOBETASOL PROPIONATE 0.05% TOPICAL SOLN 25 ML TOP SCH (10:13)
[2019-02-18] MEDS: CHOLECALCIFEROL (D3) 400 UNIT TABLET PEG SCH (10:46)
[2019-02-18] MEDS: CLONAZEPAM 1 MG TABLET PEG SCH (10:47)
[2019-02-18] MEDS: ENOXAPARIN SODIUM INJ 40 MG/0.4 ML DISP.SYRIN SUBCUT SCH (10:47)
[2019-02-18] MEDS: FAMOTIDINE INJ/PF 20 MG/2 ML SDV IV SCH (10:47)
[2019-02-18] MEDS: ESTROGENS,CONJUGATED 0.3 MG TABLET PO SCH (10:47)
[2019-02-18 13:53] VITALS: BP 142/58
--- NOTE | 2019-03-04 09:31 | DISCHARGE SUMMARY E ---
Discharge Summary NAME: CODY JUSTIN : 1935 AGE: 83Y ADMITTED: 02/11/2019 DISCHARGED: 02/18/2019 FINAL DIAGNOSIS: SMALL BOWEL OBSTRUCTION, RESOLVED. HOSPITAL COURSE: This is an 83-year-old female who had history of hysterectomy and cholecystectomy in the past. Complaining of abdominal pains for the past 2 days prior to admission associated with nausea. The patient had diarrhea the day before admission, it was loose and runny. Denies fever or chills. She had a CT scan of the abdomen on admission which showed a small bowel obstruction. She then underwent small bowel through on 02/14/19 which showed still partial small bowel obstruction at the level of the right lower quadrant. She was unable to pass flatus and subsequent KUB still showed worrisome for partial small bowel obstruction. Patient unable to have clear liquids and had a laxative which made her go to the bathroom. Patient able to tolerate soft diet on 02/17/19 and discharged improved and able to tolerate soft diet. PLAN: Patient advised to come back if she has more pains or more nausea or vomiting. Patient subsequently discharged and put back on her home medications including Aciphex. DICTATING PHYSICIAN: PAXTON ADAME M.D. [id number] Y#: [id number] ID: [id number] JOB#: [id number] ACCT: [id number] cc:PAXTON ADAME M.D. >
== END 2019-02-18 14:20 | disposition home health service (06) | DRG 390 ==
LOC: ER 05:08 → EH 08:09 → 5 16:46
PROVIDERS: ATTEND Surgery
DX: K56.600 Partial intestinal obstruction, unspecified as to cause (principal); K59.09 Other constipation; K58.9 Irritable bowel syndrome, unspecified; G89.29 Other chronic pain; J45.909 Unspecified asthma, uncomplicated; G43.909 Migraine, unspecified, not intractable, without status migrainosus; K21.9 Gastro-esophageal reflux disease without esophagitis; K44.9 Diaphragmatic hernia without obstruction or gangrene; M19.90 Unspecified osteoarthritis, unspecified site; L40.9 Psoriasis, unspecified; F32.9 Major depressive disorder, single episode, unspecified; F43.10 Post-traumatic stress disorder, unspecified; R10.13 Epigastric pain; F41.9 Anxiety disorder, unspecified; D72.829 Elevated white blood cell count, unspecified; Z88.6 Allergy status to analgesic agent; Z88.3 Allergy status to other anti-infective agents; Z88.2 Allergy status to sulfonamides; Z88.8 Allergy status to other drugs, medicaments and biological substances
CPT/HCPCS: 36415; 74018; 74019; 74177; 74250; 80048; 80053; 81001; 83690; 85025; 87086; 93005; 93010; 99285; J1650; J2270; J2405; J3480; J3490; J7030; J7121; S0028

== ENCOUNTER 2019-02-19 14:14 | Inpatient (IN) | payer MEDICARE, OTHER ==
[2019-02-19] MEDS ORDERED: NORMAL SALINE 1000 ML 1,000 ML IV ONE (16:02)
[2019-02-19] MEDS ORDERED: ONDANSETRON HCL INJ/PF 4 MG/2 ML SDV IV ONE (16:03)
--- NOTE | 2019-02-19 16:05 | ER Document Report ---
ED General - General Chief Complaint: Nausea/Vomiting Stated Complaint: ABDOMINAL PAIN Time Seen by Provider: 02/19/19 15:43 Mode of Arrival: Medic Information source: Patient Notes: This is an 83-year-old female brought in by EMS because of intractable nausea, vomiting and abdominal pain. The patient has a recent diagnosis of a SBO. Given her age, they were attempting to treat her conservatively with the hopes that this would resolve and she did show improvement and went home yesterday but her symptoms returned and she is not able to tolerate p.o. TRAVEL OUTSIDE OF THE [place] IN LAST 30 DAYS: No - HPI Onset: Last week Onset/Duration: Gradual Quality of pain: Dull Severity: Moderate Pain Level: 2 Associated symptoms: denies: Chest pain, Fever, Shortness of breath Exacerbated by: Denies Relieved by: Denies Similar symptoms previously: No Recently seen / treated by doctor: No - Related Data Allergies/Adverse Reactions: sulfamethoxazole [From Septra DS] Allergy (Intermediate, Verified 05/30/18 08:02) RASH trimethoprim [From Septra DS] Allergy (Intermediate, Verified 05/30/18 08:02) RASH aspirin [Aspirin] Allergy (Mild, Verified 05/30/18 08:02) Hives doxycycline monohydrate [From Vibramycin] Allergy (Unknown, Verified 05/30/18 08:02) made me feel drunk, couldn't walk meloxicam [From Mobic] Allergy (Unknown, Verified 05/30/18 08:02) UNKNOWN nitrofurantoin [Nitrofurantoin] Allergy (Unknown, Verified 05/30/18 08:02) Sick all over lidocaine [From Lidoderm] Allergy (Verified 05/30/18 08:02) cimetidine [From Tagamet] Adverse Reaction (Intermediate, Verified 05/30/18 08:02) YEAST amoxicillin trihydrate [From Augmentin] Adverse Reaction (Mild, Verified 05/30/18 08:02) Nausea ciprofloxacin [From Cipro] Adverse Reaction (Mild, Verified 05/30/18 08:02) Sick stomach diclofenac sodium [From Arthrotec 75] Adverse Reaction (Mild, Verified 05/30/18 08:02) made me feel drunk doxycycline hyclate [From Vibramycin] Adverse Reaction (Mild, Verified 05/30/18 08:02) made me feel drunk, couldn't walk fexofenadine HCl [From Jacquelin] Adverse Reaction (Mild, Verified 05/30/18 08:02) "dries my mouth out" lansoprazole [From Prevacid] Adverse Reaction (Mild, Verified 05/30/18 08:02) Diarrhea misoprostol [From Arthrotec 75] Adverse Reaction (Mild, Verified 05/30/18 08:02) "felt drunk, couldn't walk" Potassium Clavulanate * [From Augmentin] Adverse Reaction (Mild, Verified 05/30/18 08:02) Nausea celecoxib [From Celebrex] Adverse Reaction (Unknown, Verified 05/30/18 08:02) Heart trouble ciprofloxacin HCl [From Cipro] Adverse Reaction (Unknown, Verified 05/30/18 08:02) Sick stomach clindamycin HCl [From Cleocin] Adverse Reaction (Verified 05/30/18 08:02) Diarrhea risperidone [Risperidone] Adverse Reaction (Verified 05/30/18 08:02) Past Medical History - General Information source: Patient - Social History Smoking Status: Never Smoker Cigarette use (# per day): No Chew tobacco use (# tins/day): No Frequency of alcohol use: Rare Drug Abuse: None Lives with: Family Family History: Reviewed & Not Pertinent Patient has suicidal ideation: No Patient has homicidal ideation: No - Past Medical History Cardiac Medical History: Reports: Hx Atrial Fibrillation - History of Denies: Hx Coronary Artery Disease, Hx Heart Attack, Hx Hypertension Pulmonary Medical History: Reports: Hx Asthma - CAUSES CONGESTION, INHALER PRN, Hx Pneumonia - YRS AGO Denies: Hx Bronchitis, Hx COPD Neurological Medical History: Reports: Hx Migraine - visual migraines. Denies: Hx Cerebrovascular Accident, Hx Seizures Renal/ Medical History: Denies: Hx Peritoneal Dialysis GI Medical History: Reports: Hx Gastroesophageal Reflux Disease, Hx Hiatal Hernia, Hx Irritable Bowel Musculoskeletal Medical History: Reports Hx Arthritis, Reports Hx Musculoskeletal Trauma - left thumb Skin Medical History: Reports Hx Psoriasis Psychiatric Medical History: Reports: Hx Anxiety, Hx Depression, Hx Post Traumatic Stress Disorder Traumatic Medical History: Reports: Hx Fractures - left thumb Past Surgical History: Reports: Hx Appendectomy, Hx Cholecystectomy, Hx Hysterectomy, Hx Orthopedic Surgery - Immunizations Immunizations up to date: Yes Hx Diphtheria, Pertussis, Tetanus Vaccination: Yes Hx Pneumococcal Vaccination: 09/19/07 Review of Systems - Review of Systems Constitutional: denies: Chills, Fever EENT: No symptoms reported Cardiovascular: No symptoms reported Respiratory: No symptoms reported Gastrointestinal: No symptoms reported Genitourinary: No symptoms reported Female Genitourinary: No symptoms reported Musculoskeletal: No symptoms reported Skin: No symptoms reported Hematologic/Lymphatic: No symptoms reported Neurological/Psychological: See HPI Physical Exam - Vital signs Vitals: Temp 98.1 F 02/19/19 14:21 Notes: Physical exam: GENERAL: She is alert and oriented x3, she is actively vomiting HEAD: Atraumatic, normocephalic. EYES: Pupils equal round and reactive to light, extraocular movements intact, sclera anicteric, conjunctiva are normal. ENT: TMs normal, nares patent, oropharynx clear without exudates. Dry mucous membranes. NECK: Normal range of motion, supple without obvious mass or JVD. LUNGS: Breath sounds clear to auscultation bilaterally and equal. No wheezes rales or rhonchi. HEART: Regular rate and rhythm without murmurs, rubs or gallops. ABDOMEN: Soft, no bowel sounds. No tenderness to palpation. No guarding, no rebound. No masses appreciated. EXTREMITIES: Normal range of motion, no pitting or edema. No clubbing or cyanosis. NEUROLOGICAL: Cranial nerves II through XII grossly intact. Normal speech, mo ving all extremities. PSYCH: Normal mood, normal affect. SKIN: Warm, Dry, normal turgor, no rashes or lesions noted. Course - Vital Signs Vital signs: Temp Pulse Resp BP Pulse Ox 98.4 F 21 H 153/60 H 96 02/19/19 14:26 02/19/19 18:01 02/19/19 18:01 02/19/19 18:01 - Laboratory Result Diagrams: 02/19/19 16:20 02/19/19 16:20 Discharge - Discharge Clinical Impression: SBO Condition: Stable Disposition: ADMITTED INPATIENT Admitting Provider: Surgicalist - Dr. Ortiz Unit Admitted: Surgical Floor
[2019-02-19 16:32] LABS: ABSOLUTE EOSINOPHILS # (AUTO) 0.2 10^3/uL (0.0-0.6); ABSOLUTE LYMPHOCYTES (AUTO) 0.8 10^3/uL (0.5-4.7); ABSOLUTE MONOCYTES (AUTO) 0.8 10^3/uL (0.1-1.4); ABSOLUTE NEUT (AUTO) 6.9 10^3/uL (1.7-8.2); BASOPHILS % (AUTO) 0.3 % (0-2); EOSINOPHILS % (AUTO) 1.9 % (0-6); HEMATOCRIT 37.3 % (36.0-47.0); HEMOGLOBIN 12.5 g/dL (12.0-15.5); LYMPHOCYTES % (AUTO) 9.2 % (13-45); MEAN CORPUSCULAR HEMOGLOBIN 28.9 pg (27.0-33.4); MEAN CORPUSCULAR HGB CONC 33.6 g/dL (32.0-36.0); MEAN CORPUSCULAR VOLUME 86 fl (80-97); MONOCYTES % (AUTO) 9.2 % (3-13); PLATELET COUNT 206 10^3/uL (150-450); RED BLOOD COUNT 4.34 10^6/uL (3.72-5.28); RED CELL DISTRIBUTION WIDTH 13.6 % (11.5-14.0); SEGMENTED NEUTROPHILS % (AUTO) 79.4 % (42-78); TOTAL CELLS COUNTED % (AUTO) 100 %; WHITE BLOOD COUNT 8.6 10^3/uL (4.0-10.5)
[2019-02-19 16:43] LABS: INTERNATIONAL RATION (INR) 1.14; PROTHROMBIN TIME 15.2 SEC (11.4-15.4)
[2019-02-19 16:56] LABS: ALANINE AMINOTRANSFERASE 158 U/L (9-52); ALBUMIN 3.4 g/dL (3.5-5.0); ALKALINE PHOSPHATASE 100 U/L (38-126); ANION GAP 10 (5-19); ASPARTATE AMINO TRANSFERASE 186 U/L (14-36); BILIRUBIN,DIRECT 0.4 mg/dL (0.0-0.4); BILIRUBIN,TOTAL 0.6 mg/dL (0.2-1.3); BLOOD UREA NITROGEN 22 mg/dL (7-20); CALCIUM 8.9 mg/dL (8.4-10.2); CARBON DIOXIDE 29 mmol/L (22-30); CHLORIDE 100 mmol/L (98-107); GLUCOSE 91 mg/dL (75-110); POTASSIUM 3.6 mmol/L (3.6-5.0); TOTAL PROTEIN 6.2 g/dL (6.3-8.2)
[2019-02-19 17:44] LABS: APPEARANCE,URINE SLIGHTLY-CLOUDY; BILIRUBIN,URINE NEGATIVE (NEGATIVE); COLOR,URINE YELLOW; GLUCOSE, URINE NEGATIVE (NEGATIVE); KETONES,URINE 80 mg/dL (NEGATIVE); LEUKOCYTE ESTERASE,URINE NEGATIVE (NEGATIVE); NITRITE,URINE NEGATIVE (NEGATIVE); PROTEIN,URINE 100 mg/dL (NEGATIVE); URINE SPECIFIC GRAVITY 1.026; UROBILINOGEN,URINE NEGATIVE mg/dL (<2.0)
--- NOTE | 2019-02-19 18:46 | RADIOLOGY REPORT (SQ) ---
EXAM DESCRIPTION: KUB/ABDOMEN (SINGLE VIEW) COMPLETED DATE/TIME: 02/19/2019 6:37 pm REASON FOR STUDY: abd pain COMPARISON: 02/15/2019 NUMBER OF VIEWS: One view. TECHNIQUE: Supine radiographic image of the abdomen acquired. LIMITATIONS: None. FINDINGS: BOWEL GAS PATTERN: Nonobstructive gas pattern. There is a small 1 residual contrast in th e colon. CALCIFICATIONS: No suspicious calcifications. SOFT TISSUES: No gross mass or suggestion of organomegaly. HARDWARE: None in the abdomen. BONES: No acute fracture. No worrisome bone lesions. OTHER: No other significant finding. IMPRESSION: NO RADIOGRAPHIC EVIDENCE FOR ACUTE ABDOMINAL DISEASE. TECHNICAL DOCUMENTATION: JOB ID: [id number] [employer] All Rights Reserved Reading location - IP/workstation name: [email or web address]
--- NOTE | 2019-02-19 19:03 | PDOC H&P ---
History of Present Illness Admission Date/PCP: 02/19/19 16:14 Patient complains of: nausea and vomiting History of Present Illness: CODY JUSTIN is a 83 year old female with history of hysterectomy and cholecystectomy was admitted initially on 02/11/19 for SBO. Treated with NGT and follow up SBFT showed some contrast in the large bowel though quite delayed. She passed flatus and NGT removed and tolerated clear liquid to full liquid. She was discharged on 02/18/19. Today c/o nausea and vomiting. She said she passed flatus this morning and in the ED. Will obtain KUB and possibly put back NGT and plan on possible exploratory laparotomy tomorrow to lyze adhesion to relieve the obstruction. Past Medical History Cardiac Medical History: Reports: Atrial Fibrillation - History of Denies: Coronary Artery Disease, Myocardial Infarction, Hypertension Pulmonary Medical History: Reports: Asthma - CAUSES CONGESTION, INHALER PRN, Pneumonia - YRS AGO Denies: Bronchitis, Chronic Obstructive Pulmonary Disease (COPD) Neurological Medical History: Reports: Migraine - visual migraines Denies: Seizures GI Medical History: Reports: Gastroesophageal Reflux Disease, Hiatal Hernia Musculoskeltal Medical History: Reports: Arthritis Skin Medical History: Reports: Psoriasis Psychiatric Medical History: Reports: Depression, Post Traumatic Stress Disorder Hematology: Denies: Anemia Past Surgical History Past Surgical History: Reports: Appendectomy, Cholecystectomy, Hysterectomy, Orthopedic Surgery Social History Smoking Status: Never Smoker Frequency of Alcohol Use: None Hx Recreational Drug Use: No Hx Prescription Drug Abuse: No Family History Family History: Reviewed & Not Pertinent Parental Family History Reviewed: Yes Children Family History Reviewed: No Sibling(s) Family History Reviewed.: No Medication/Allergy Home Medications: Levothyroxine Sodium [Synthroid] 25 mcg PO Q6AM 05/12/18 Cholecalciferol (Vitamin D3) [Vitamin D3 400 Unit Tablet] 400 unit PO DAILY 02/11/19 Clobetasol Propionate [Temovate 0.05% Topical Soln 25 Ml Bottle] 1 applic TOP BID 02/11/19 Clonazepam 0.25 mg PO Q12 02/11/19 Cyanocobalamin (Vitamin B-12) [Vitamin B-12 100 mcg Tablet] 100 mcg PO DAILY 02/11/19 Diphenhydramine HCl [Benadryl] 25 mg PO QHS 02/11/19 Estrogens,Conjugated [Premarin 0.3 Mg Tablet] 0.3 mg PO DAILY 02/11/19 Fluticasone Propionate [Flonase Nasal Amberg 50 Mcg/Amberg 16 gm] 2 spray NAREB DAILY 02/11/19 Linaclotide [Linzess] 72 mcg PO DAILY MDD SEE LABEL COMMENTS 02/11/19 Magnesium Hydroxide [Milk of Magnesia 30 ml Udcup] 30 ml PO QHS 02/11/19 Oxymetazoline HCl [Afrin 0.05% Nasal [place] 15 ml Bottle] 1 spray ENDO DAILYP PRN 02/11/19 Quetiapine Fumarate [Seroquel] 25 mg PO QHS 02/11/19 Allergies/Adverse Reactions: sulfamethoxazole [From Septra DS] Allergy (Intermediate, Verified 05/30/18 08:02) RASH trimethoprim [From Septra DS] Allergy (Intermediate, Verified 05/30/18 08:02) RASH aspirin [Aspirin] Allergy (Mild, Verified 05/30/18 08:02) Hives doxycycline monohydrate [From Vibramycin] Allergy (Unknown, Verified 05/30/18 08:02) made me feel drunk, couldn't walk meloxicam [From Mobic] Allergy (Unknown, Verified 05/30/18 08:02) UNKNOWN nitrofurantoin [Nitrofurantoin] Allergy (Unknown, Verified 05/30/18 08:02) Sick all over lidocaine [From Lidoderm] Allergy (Verified 05/30/18 08:02) cimetidine [From Tagamet] Adverse Reaction (Intermediate, Verified 05/30/18 0 8:02) YEAST amoxicillin trihydrate [From Augmentin] Adverse Reaction (Mild, Verified 05/30/18 08:02) Nausea ciprofloxacin [From Cipro] Adverse Reaction (Mild, Verified 05/30/18 08:02) Sick stomach diclofenac sodium [From Arthrotec 75] Adverse Reaction (Mild, Verified 05/30/18 08:02) made me feel drunk doxycycline hyclate [From Vibramycin] Adverse Reaction (Mild, Verified 05/30/18 08:02) made me feel drunk, couldn't walk fexofenadine HCl [From Jacquelin] Adverse Reaction (Mild, Verified 05/30/18 08:02) "dries my mouth out" lansoprazole [From Prevacid] Adverse Reaction (Mild, Verified 05/30/18 08:02) Diarrhea misoprostol [From Arthrotec 75] Adverse Reaction (Mild, Verified 05/30/18 08:02) "felt drunk, couldn't walk" Potassium Clavulanate * [From Augmentin] Adverse Reaction (Mild, Verified 05/30/18 08:02) Nausea celecoxib [From Celebrex] Adverse Reaction (Unknown, Verified 05/30/18 08:02) Heart trouble ciprofloxacin HCl [From Cipro] Adverse Reaction (Unknown, Verified 05/30/18 08: 02) Sick stomach clindamycin HCl [From Cleocin] Adverse Reaction (Verified 05/30/18 08:02) Diarrhea risperidone [Risperidone] Adverse Reaction (Verified 05/30/18 08:02) Review of Systems Constitutional: PRESENT: as per HPI, other - denies fever/chills Ears: PRESENT: other - decreased hearing Cardiovascular: PRESENT: other - no chest pains. Some cough Gastrointestinal: PRESENT: abdominal pain - mild epigastric pains. Has history of GERD which is usually relieved by Aciphex, nausea, vomiting Psychiatric: PRESENT: anxiety Physical Exam Vital Signs: Temp Pulse Resp BP Pulse Ox 98.4 F 21 H 153/60 H 96 02/19/19 14:26 02/19/19 18:01 02/19/19 18:01 02/19/19 18:01 Intake & Output 02/18/19 02/19/19 02/20/19 06:59 06:59 06:59 Weight 47.5 kg General appearance: PRESENT: mild distress Head exam: PRESENT: atraumatic Eye exam: PRESENT: conjunctiva pink Mouth exam: PRESENT: moist Neck exam: PRESENT: full ROM Respiratory exam: PRESENT: clear to auscultation enedina Cardiovascular exam: PRESENT: RRR Pulses: PRESENT: normal radial pulses Vascular exam: PRESENT: normal capillary refill GI/Abdominal exam: PRESENT: distended - mild distention, soft, tenderness - mild tenderness epigastric area Rectal exam: PRESENT: deferred Neurological exam: PRESENT: alert, oriented to person, oriented to place, oriented to time, oriented to situation Psychiatric exam: PRESENT: anxious Skin exam: PRESENT: normal color, warm Results Laboratory Results: 02/19/19 16:20 02/19/19 16:20 02/19/19 02/19/19 02/19/19 16:20 16:20 16:45 WBC 8.6 RBC 4.34 Hgb 12.5 Hct 37.3 MCV 86 MCH 28.9 MCHC 33.6 RDW 13.6 Plt Count 206 Seg Neutrophils % 79.4 H Lymphocytes % 9.2 L Monocytes % 9.2 Eosinophils % 1.9 Basophils % 0.3 Absolute Neutrophils 6.9 Absolute Lymphocytes 0.8 Absolute Monocytes 0.8 Absolute Eosinophils 0.2 Absolute Basophils 0.0 Sodium 139.0 Potassium 3.6 Chloride 100 Carbon Dioxide 29 Anion Gap 10 BUN 22 H Creatinine 0.65 Est GFR ( Amer) > 60 Est GFR (Non-Af Amer) > 60 Glucose 91 Calcium 8.9 Total Bilirubin 0.6 AST 186 H ALT 158 H Alkaline Phosphatase 100 Total Protein 6.2 L Albumin 3.4 L Urine Color YELLOW Urine Appearance SLIGHTLY-CLOUDY Urine pH 5.0 Ur Specific [place] 1.026 Urine Protein 100 H Urine Glucose (UA) NEGATIVE Urine Ketones 80 H Urine Blood NEGATIVE Urine Nitrite NEGATIVE Ur Leukocyte Esterase NEGATIVE Urine WBC (Auto) 3 Urine RBC (Auto) 3 Impressions: KUB X-Ray 02/19/19 00:00 IMPRESSION: NO RADIOGRAPHIC EVIDENCE FOR ACUTE ABDOMINAL DISEASE. Assessment & Plan - Diagnosis (1) Small bowel obstruction Is this a current diagnosis for this admission?: Yes - Time Time Spent: 30 to 50 Minutes - Inpatient Certification Medical Necessity: Need For IV Fluids, Need for Surgery - Plan Summary Plan Summary: Place NGT Hydrate Possible ex lap tomorrow if remains symptomatic
[2019-02-19] MEDS ORDERED: DEXTROSE 40% GEL 15 GM TUBE PO PRN ×2 (19:04)
[2019-02-19] MEDS ORDERED: NORMAL SALINE 1000 ML 1,000 ML IV PRN (19:04)
[2019-02-19] MEDS ORDERED: DEXTROSE 50%-WATER 25 GM/50 ML DISP.SYRIN IV PRN ×2 (19:04)
[2019-02-19] MEDS ORDERED: GLUCAGON,HUMAN RECOMB 1 MG INJ SUBCUT PRN (19:04)
--- NOTE | 2019-02-19 19:36 | EKG REPORT ---
SEVERITY:- BORDERLINE ECG - SINUS RHYTHM BORDERLINE T ABNORMALITIES, ANTERIOR LEADS : Confirmed by: Zoie Hair MD 19-Feb-2019 19:35:35
[2019-02-20 06:13] LABS: ABSOLUTE EOSINOPHILS # (AUTO) 0.1 10^3/uL (0.0-0.6); ABSOLUTE LYMPHOCYTES (AUTO) 1.1 10^3/uL (0.5-4.7); ABSOLUTE MONOCYTES (AUTO) 0.6 10^3/uL (0.1-1.4); ABSOLUTE NEUT (AUTO) 4.3 10^3/uL (1.7-8.2); BASOPHILS % (AUTO) 0.1 % (0-2); EOSINOPHILS % (AUTO) 1.6 % (0-6); HEMATOCRIT 32.4 % (36.0-47.0); HEMOGLOBIN 10.9 g/dL (12.0-15.5); LYMPHOCYTES % (AUTO) 17.5 % (13-45); MEAN CORPUSCULAR HEMOGLOBIN 29.1 pg (27.0-33.4); MEAN CORPUSCULAR HGB CONC 33.8 g/dL (32.0-36.0); MEAN CORPUSCULAR VOLUME 86 fl (80-97); PLATELET COUNT 167 10^3/uL (150-450); RED BLOOD COUNT 3.75 10^6/uL (3.72-5.28); RED CELL DISTRIBUTION WIDTH 13.7 % (11.5-14.0); SEGMENTED NEUTROPHILS % (AUTO) 70.8 % (42-78); TOTAL CELLS COUNTED % (AUTO) 100 %
[2019-02-20 06:28] LABS: ANION GAP 13 (5-19); BLOOD UREA NITROGEN 23 mg/dL (7-20); CALCIUM 7.8 mg/dL (8.4-10.2); CHLORIDE 108 mmol/L (98-107); POTASSIUM 3.5 mmol/L (3.6-5.0); SODIUM 139.6 mmol/L (137-145)
[2019-02-20 06:34] LABS: GLUCOSE 57 mg/dL (75-110)
[2019-02-20 06:38] LABS: CARBON DIOXIDE 19 mmol/L (22-30)
[2019-02-20] MEDS: DEXTROSE 5%-LACTATED RINGERS 1,000 ML IV PRN ×2 (08:21→18:11)
--- NOTE | 2019-02-20 11:05 | PDOC PROGRESS REPORT ---
Subjective Progress Note for:: 02/20/19 Subjective:: no pains this am and tolerating clears. Has soft stools Claims she has problems eating solid food because she has a narrowing in her throat. She says Dr Dela Cruz attempted EGD but was unsuccessful because of not enough sedation. Reason For Visit: SBO Physical Exam Vital Signs: Temp Pulse Resp BP Pulse Ox 98.7 F 83 19 137/69 H 96 02/20/19 01:08 02/20/19 01:08 02/20/19 01:08 02/20/19 01:08 02/20/19 01:08 Intake & Output 02/19/19 02/20/19 02/21/19 06:59 06:59 06:59 Intake Total 0 2000 Output Total 550 Balance -550 2000 Weight 53.5 kg Exam: Abdomen is soft and non tender.Minimal distention Results Laboratory Results: 02/20/19 05:40 02/20/19 05:40 02/19/19 02/19/19 02/19/19 16:20 16:20 16:45 WBC 8.6 RBC 4.34 Hgb 12.5 Hct 37.3 MCV 86 MCH 28.9 MCHC 33.6 RDW 13.6 Plt Count 206 Seg Neutrophils % 79.4 H Lymphocytes % 9.2 L Monocytes % 9.2 Eosinophils % 1.9 Basophils % 0.3 Absolute Neutrophils 6.9 Absolute Lymphocytes 0.8 Absolute Monocytes 0.8 Absolute Eosinophils 0.2 Absolute Basophils 0.0 Sodium 139.0 Potassium 3.6 Chloride 100 Carbon Dioxide 29 Anion Gap 10 BUN 22 H Creatinine 0.65 Est GFR ( Amer) > 60 Est GFR (Non-Af Amer) > 60 Glucose 91 Calcium 8.9 Total Bilirubin 0.6 AST 186 H ALT 158 H Alkaline Phosphatase 100 Total Protein 6.2 L Albumin 3.4 L Urine Color YELLOW Urine Appearance SLIGHTLY-CLOUDY Urine pH 5.0 Ur Specific [place] 1.026 Urine Protein 100 H Urine Glucose (UA) NEGATIVE Urine Ketones 80 H Urine Blood NEGATIVE Urine Nitrite NEGATIVE Ur Leukocyte Esterase NEGATIVE Urine WBC (Auto) 3 Urine RBC (Auto) 3 02/20/19 02/20/19 05:40 05:40 WBC 6.0 RBC 3.75 Hgb 10.9 L Hct 32.4 L MCV 86 MCH 29.1 MCHC 33.8 RDW 13.7 Plt Count 167 Seg Neutrophils % 70.8 Lymphocytes % 17.5 Monocytes % 10.0 Eosinophils % 1.6 Basophils % 0.1 Absolute Neutrophils 4.3 Absolute Lymphocytes 1.1 Absolute Monocytes 0.6 Absolute Eosinophils 0.1 Absolute Basophils 0.0 Sodium 139.6 Potassium 3.5 L Chloride 108 H Carbon Dioxide 19 L D Anion Gap 13 BUN 23 H Creatinine 0.52 Est GFR ( Amer) > 60 Est GFR (Non-Af Amer) > 60 Glucose 57 L Calcium 7.8 L Total Bilirubin AST ALT Alkaline Phosphatase Total Protein Albumin Urine Color Urine Appearance Urine pH Ur Specific [place] Urine Protein Urine Glucose (UA) Urine Ketones Urine Blood Urine Nitrite Ur Leukocyte Esterase Urine WBC (Auto) Urine RBC (Auto) Impressions: KUB X-Ray 02/19/19 00:00 IMPRESSION: NO RADIOGRAPHIC EVIDENCE FOR ACUTE ABDOMINAL DISEASE. Assessment & Plan - Diagnosis (1) Small bowel obstruction Is this a current diagnosis for this admission?: Yes (2) Nausea and vomiting Is this a current diagnosis for this admission?: Yes - Time Time Spent with patient: 15-24 minutes - Inpatient Certification Medical Necessity: Need For IV Fluids, Risk of Complication if Not Cared For in Hospital - Plan Summary Plan Summary: A/ SBO appears resolved. KUB last night was essentially normal and patient passing Flatus and now with BM D/W Dr Velásquez who suggested doing Ba swallow(esophagram) to check for possible esophageal narrowing and if positive need to refer back to Dr Dela Cruz for EGD/dilatation P/ Ba Swallow ordered
--- NOTE | 2019-02-20 15:20 | RADIOLOGY REPORT (SQ) ---
EXAM DESCRIPTION: BARIUM SWALLOW ESOPHAGUS COMPLETED DATE/TIME: 02/20/2019 2:38 pm REASON FOR STUDY: R/O esophageal stricture COMPARISON: CT abdomen pelvis 09/09/2017, 02/11/2019 Barium swallow 07/02/2018 Small bowel follow-through series [id number] KUB films 02/10/2019, 02/11/2019, 02/12/2019, 02/13/2019, 16 19, 02/19/2019 TECHNIQUE: Under fluoroscopic guidance, patient ingested thin barium. Fluoroscopic spot images and r outine radiographic images acquired and stored on PACS. 12 MM BARIUM TABLET GIVEN: No Patient refused LIMITATIONS: None. FLUOROSCOPY TIME: 1.4 minutes 10 series of digital images saved to PACS. FINDINGS: NEUROMUSCULAR COORDINATION OF SWALLOW: Normal. No aspiration. Prominent cricopharyngeal m uscle impression on the upper esophagus ESOPHAGEAL MOTILITY: Normal peristalsis. No esophageal spasm. ESOPHAGEAL MUCOSA: Mild mucosal irregularity above the large retrocardiac hiatal hernia containing th e stomach fundus. GASTRO-ESOPHAGEAL JUNCTION: Moderate to large retrocardiac hiatal hernia containing the stomach fundu s. Unprovoked gastroesophageal reflux to the mid 3rd of the esophagus. Mild distal esophageal lumin al narrowing likely from peptic stricture. NON-GI TRACT STRUCTURES: No significant finding. OTHER: No other significant finding. IMPRESSION: Moderate to large retrocardiac hiatal hernia containing the stomach fundus. Mild distal esophageal peptic stricture with mild mucosal irregularity. Unprovoked gastroesophageal reflux to the cervical esophagus COMMENT: Quality ID [id number]: Final reports for procedures using fluoroscopy that document radiation exp osure indices, or exposure time and number of fluorographic images (if radiation exposure indices are not available) TECHNICAL DOCUMENTATION: JOB ID: [id number] [employer]- All Rights Reserved Reading location - IP/workstation name: [email or web address]
[2019-02-21] MEDS ORDERED: OXYMETAZOLINE HCL 0.05% NASAL SPRAY 15 ML BOTTLE NAREB PRN (12:32)
[2019-02-21] MEDS: DEXTROSE 5%-LACTATED RINGERS 1,000 ML IV PRN (13:47)
[2019-02-21] MEDS ORDERED: CLONAZEPAM 1 MG TABLET PO ONE (17:00)
[2019-02-21] MEDS: CLOBETASOL PROPIONATE 0.05% TOPICAL SOLN 25 ML TOP SCH (17:18)
[2019-02-21] MEDS: ONDANSETRON HCL INJ/PF 4 MG/2 ML SDV IV PRN (17:41)
--- NOTE | 2019-02-21 18:59 | PDOC PROGRESS REPORT ---
Subjective Progress Note for:: 02/21/19 Subjective:: This is an 83-year-old female with chronic abdominal pain, chronic constipation, recently admitted for a partial small bowel obstruction. The patient reports feeling better today. Her only complaint is weakness and malaise. She denies chest pain, shortness of breath, fevers, chills, abdominal pain, nausea, vomiting, dizziness, blurry vision. The patient has had multiple loose bowel movements overnight. Reason For Visit: SBO Physical Exam Vital Signs: Temp Pulse Resp BP Pulse Ox 97.3 F 81 20 184/69 H 97 02/21/19 15:58 02/21/19 15:58 02/21/19 15:58 02/21/19 15:58 02/21/19 15:58 Intake & Output 02/20/19 02/21/19 02/22/19 06:59 06:59 06:59 Intake Total 0 2756 936 Output Total 550 1525 500 Balance -550 1231 436 Weight 53.5 kg 53.2 kg General appearance: PRESENT: no acute distress, cooperative Head exam: PRESENT: atraumatic, normocephalic Eye exam: PRESENT: EOMI, PERRLA. ABSENT: scleral icterus Mouth exam: PRESENT: moist, neck supple Neck exam: ABSENT: meningismus, tenderness, thyromegaly, tracheal deviation Respiratory exam: PRESENT: clear to auscultation enedina, unlabored. ABSENT: chest wall tenderness, wheezes Cardiovascular exam: PRESENT: RRR Pulses: PRESENT: normal radial pulses GI/Abdominal exam: PRESENT: soft. ABSENT: distended, guarding, tenderness Rectal exam: PRESENT: deferred Extremities exam: ABSENT: clubbing Musculoskeletal exam: ABSENT: deformity Neurological exam: PRESENT: alert, awake, oriented to person, oriented to place, oriented to time, oriented to situation Psychiatric exam: PRESENT: other - Tangential Skin exam: ABSENT: cyanosis, erythema, jaundice Results Laboratory Results: 02/20/19 05:40 02/20/19 05:40 Impressions: KUB X-Ray 02/19/19 00:00 IMPRESSION: NO RADIOGRAPHIC EVIDENCE FOR ACUTE ABDOMINAL DISEASE. Esophagus X-Ray 02/20/19 00:00 IMPRESSION: Moderate to large retrocardiac hiatal hernia containing the stomach fundus. Mild distal esophageal peptic stricture with mild mucosal irregularity. Unprovoked gastroesophageal reflux to the cervical esophagus Assessment & Plan - Diagnosis (2) Nausea and vomiting Qualifiers: Vomiting Intractability: non-intractable Is this a current diagnosis for this admission?: Yes - Plan Summary Plan Summary: This is an 83-year-old female, recently admitted for partial small bowel obstruction. Her partial small bowel obstruction appears to have resolved. She does report occasional nausea and vomiting. She has a history of a large hiatal hernia. She also has a history of chronic constipation. The patient's bowels are moving well. Today, she complains of weakness and fatigue. I will have physical therapy evaluate her. I will also consult social studies teacher for discharge planning. I will advance the patient's diet today. Once there is a discharge plan, and she is tolerating regular diet, she may be discharged home. Possible discharge tomorrow.
[2019-02-21] MEDS: MAGNESIUM HYDROXIDE SUSP 30 ML UDCUP PO SCH (21:18)
[2019-02-21] MEDS: QUETIAPINE FUMARATE 25 MG TABLET PO SCH (21:19)
[2019-02-21] MEDS: DIPHENHYDRAMINE HCL 25 MG CAPSULE PO SCH (21:19)
[2019-02-21] MEDS ORDERED: QUETIAPINE FUMARATE 25 MG PO SCH (22:00)
[2019-02-21] MEDS ORDERED: (PENDING PHARMACY ID) (Clonazepam [Clonazepam] 0.25 MG) PO SCH (22:00)
[2019-02-22] MEDS: ONDANSETRON HCL INJ/PF 4 MG/2 ML SDV IV PRN ×3 (03:52→14:39)
[2019-02-22] MEDS: LEVOTHYROXINE SODIUM 0.025 MG TABLET PO SCH (05:09)
[2019-02-22 08:20] LABS: BLOOD UREA NITROGEN 4 mg/dL (7-20); CALCIUM 8.4 mg/dL (8.4-10.2); CARBON DIOXIDE 33 mmol/L (22-30); CHLORIDE 98 mmol/L (98-107); GLUCOSE 122 mg/dL (75-110); SODIUM 135.4 mmol/L (137-145)
[2019-02-22 08:23] LABS: ANION GAP 4 (5-19)
[2019-02-22 08:30] LABS: POTASSIUM 2.8 mmol/L (3.6-5.0)
--- NOTE | 2019-02-22 09:57 | RADIOLOGY REPORT (SQ) ---
EXAM DESCRIPTION: ABDOMEN 2 VIEWS COMPLETED DATE/TIME: 02/22/2019 9:42 am REASON FOR STUDY: flat and upright. nausea and vomiting COMPARISON: 02/19/2019, CT scan 02/11/2019 NUMBER OF VIEWS: Two views. TECHNIQUE: Supine and erect/decubitus radiographic images of the abdomen acquired. LIMITATIONS: None. FINDINGS: FREE AIR: None. No abnormal gas collections. LUNG BASES: Clear. BOWEL GAS PATTERN: Contrast is seen in the colon. There dilated small bowel loops with air-fluid lev els. CALCIFICATIONS: No suspicious calcifications. SOFT TISSUES: No gross mass or suggestion of organomegaly. HARDWARE: None in the abdomen. BONES: No acute fracture. No worrisome bone lesions. OTHER: No other significant finding. IMPRESSION: Small bowel obstruction. TECHNICAL DOCUMENTATION: JOB ID: [id number] [employer]- All Rights Reserved Reading location - IP/workstation name: [email or web address]
[2019-02-22] MEDS ORDERED: (PENDING PHARMACY ID) (Cyanocobalamin (Vitamin B-12) [Vitamin B-12 100 Mcg Tablet] 100 MCG PO SCH (10:00)
[2019-02-22] MEDS: SUCRALFATE 1 GM TABLET PO SCH ×4 (10:34→23:14)
[2019-02-22] MEDS: CLONAZEPAM 1 MG TABLET PO SCH ×2 (10:39→23:14)
[2019-02-22] MEDS: POTASSI CL 20 MEQ/50 ML RIDER 20 MEQ/50 ML RTUPB IV SCH ×2 (10:41→16:14)
[2019-02-22] MEDS: CLOBETASOL PROPIONATE 0.05% TOPICAL SOLN 25 ML TOP SCH ×2 (10:42→17:30)
[2019-02-22] MEDS: CHOLECALCIFEROL (D3) 400 UNIT TABLET PO SCH (10:43)
[2019-02-22] MEDS: ESTROGENS,CONJUGATED 0.3 MG TABLET PO SCH (10:43)
[2019-02-22] MEDS: FLUTICASONE NASAL SPRAY 50 MCG/SPRY 120 SPRAY/16 GM NAREB SCH (10:44)
[2019-02-22] MEDS: PANTOPRAZOLE SODIUM 40 MG TABLET.DR PO SCH (16:15)
--- NOTE | 2019-02-22 20:24 | PDOC PROGRESS REPORT ---
Subjective Progress Note for:: 02/22/19 Subjective:: This is an 83-year-old female with chronic abdominal pain, chronic constipation, recently admitted for a partial small bowel obstruction. The patient reports feeling worse today. She complains of weakness and malaise. She reports 2 episodes of nausea and vomiting this morning. She denies chest pain, shortness of breath, fevers, chills, abdominal pain, nausea, vomiting, dizziness, blurry vision. Reason For Visit: SBO Physical Exam Vital Signs: Temp Pulse Resp BP Pulse Ox 99.2 F 110 H 16 148/71 H 90 L 02/22/19 15:28 02/22/19 15:28 02/22/19 15:28 02/22/19 15:28 02/22/19 15:28 Intake & Output 02/21/19 02/22/19 02/23/19 06:59 06:59 06:59 Intake Total 2756 1576 320 Output Total 1525 1000 Balance 1231 576 320 Weight 53.2 kg 53.2 kg General appearance: PRESENT: cooperative Head exam: PRESENT: atraumatic, normocephalic Eye exam: PRESENT: EOMI, PERRLA. ABSENT: scleral icterus Mouth exam: PRESENT: moist, neck supple Neck exam: ABSENT: meningismus, tenderness, thyromegaly, tracheal deviation Respiratory exam: PRESENT: clear to auscultation enedina, unlabored. ABSENT: chest wall tenderness, wheezes Cardiovascular exam: PRESENT: RRR Pulses: PRESENT: normal radial pulses Vascular exam: PRESENT: normal capillary refill. ABSENT: pallor GI/Abdominal exam: PRESENT: distended, soft, tenderness - mild. ABSENT: rigid Rectal exam: PRESENT: deferred Extremities exam: ABSENT: clubbing Musculoskeletal exam: ABSENT: deformity Neurological exam: PRESENT: alert, awake, oriented to person, oriented to place, oriented to time, oriented to situation Psychiatric exam: PRESENT: other - tangential. ABSENT: agitated, anxious Skin exam: ABSENT: cyanosis, erythema, jaundice Results Laboratory Results: 02/20/19 05:40 02/22/19 07:50 02/22/19 07:50 Sodium 135.4 L Potassium 2.8 L* Chloride 98 Carbon Dioxide 33 H Anion Gap 4 L BUN 4 L Creatinine 0.60 Est GFR ( Amer) > 60 Est GFR (Non-Af Amer) > 60 Glucose 122 H Calcium 8.4 Impressions: KUB X-Ray 02/19/19 00:00 IMPRESSION: NO RADIOGRAPHIC EVIDENCE FOR ACUTE ABDOMINAL DISEASE. Esophagus X-Ray 02/20/19 00:00 IMPRESSION: Moderate to large retrocardiac hiatal hernia containing the stomach fundus. Mild distal esophageal peptic stricture with mild mucosal irregularity. Unprovoked gastroesophageal reflux to the cervical esophagus Abdomen X-Ray 02/22/19 00:00 IMPRESSION: Small bowel obstruction. Assessment & Plan - Diagnosis (2) Nausea and vomiting Qualifiers: Vomiting Intractability: non-intractable Is this a current diagnosis for this admission?: Yes - Plan Summary Plan Summary: This is an 83-year-old female with a history of chronic constipation and a hiatal hernia. She was recently admitted for a small bowel obstruction. Unfortunately, she has multiple studies both showing and failing to show an obstruction. The patient may have a chronic, intermittent, partial small bowel obstruction. At this point, the patient is unable to eat. Her x-ray is consistent with a small bowel obstruction. She has dilated loops of small bowel, with no air in the colon. She has had multiple episodes of nausea and vomiting today. I discussed exploratory laparotomy with her versus continued conservative management. The patient wishes to discuss this with her daughter and decide regarding surgical intervention. Keep the patient n.p.o. for now.
[2019-02-22] MEDS: MAGNESIUM HYDROXIDE SUSP 30 ML UDCUP PO SCH (23:14)
[2019-02-22] MEDS: QUETIAPINE FUMARATE 25 MG TABLET PO SCH (23:14)
[2019-02-22] MEDS: DIPHENHYDRAMINE HCL 25 MG CAPSULE PO SCH (23:15)
[2019-02-23] MEDS: LEVOTHYROXINE SODIUM 0.025 MG TABLET PO SCH (05:53)
[2019-02-23] MEDS: PANTOPRAZOLE SODIUM 40 MG TABLET.DR PO SCH ×2 (05:53→23:27)
[2019-02-23 07:01] LABS: ABSOLUTE EOSINOPHILS # (AUTO) 0.1 10^3/uL (0.0-0.6); ABSOLUTE LYMPHOCYTES (AUTO) 1.7 10^3/uL (0.5-4.7); ABSOLUTE MONOCYTES (AUTO) 0.8 10^3/uL (0.1-1.4); ABSOLUTE NEUT (AUTO) 8.1 10^3/uL (1.7-8.2); BASOPHILS % (AUTO) 0.3 % (0-2); EOSINOPHILS % (AUTO) 0.7 % (0-6); HEMATOCRIT 33.8 % (36.0-47.0); HEMOGLOBIN 11.4 g/dL (12.0-15.5); MEAN CORPUSCULAR HEMOGLOBIN 28.9 pg (27.0-33.4); MEAN CORPUSCULAR HGB CONC 33.7 g/dL (32.0-36.0); MEAN CORPUSCULAR VOLUME 86 fl (80-97); MONOCYTES % (AUTO) 7.7 % (3-13); PLATELET COUNT 166 10^3/uL (150-450); RED BLOOD COUNT 3.96 10^6/uL (3.72-5.28); RED CELL DISTRIBUTION WIDTH 13.4 % (11.5-14.0); SEGMENTED NEUTROPHILS % (AUTO) 75.3 % (42-78); TOTAL CELLS COUNTED % (AUTO) 100 %; WHITE BLOOD COUNT 10.8 10^3/uL (4.0-10.5)
[2019-02-23 07:19] LABS: BLOOD UREA NITROGEN 8 mg/dL (7-20); CALCIUM 8.2 mg/dL (8.4-10.2); CARBON DIOXIDE 29 mmol/L (22-30); GLUCOSE 91 mg/dL (75-110); POTASSIUM 3.4 mmol/L (3.6-5.0)
[2019-02-23 07:24] LABS: ANION GAP 5 (5-19); CHLORIDE 104 mmol/L (98-107)
[2019-02-23] MEDS: SUCRALFATE 1 GM TABLET PO SCH ×4 (08:00→23:27)
--- NOTE | 2019-02-23 08:29 | RADIOLOGY REPORT (SQ) ---
EXAM DESCRIPTION: KUB/ABDOMEN (SINGLE VIEW) COMPLETED DATE/TIME: 02/23/2019 8:17 am REASON FOR STUDY: sbo COMPARISON: 02/22/2019. NUMBER OF VIEWS: One view. TECHNIQUE: Supine radiographic image of the abdomen acquired. LIMITATIONS: None. FINDINGS: BOWEL GAS PATTERN: Previously seen small bowel dilation has improved. Contrast present in the colon. CALCIFICATIONS: No suspicious calcifications. SOFT TISSUES: No gross mass or suggestion of organomegaly. HARDWARE: None in the abdomen. BONES: No acute fracture. No worrisome bone lesions. OTHER: No other significant finding. IMPRESSION: IMPROVEMENT IN THE PREVIOUSLY SEEN SMALL BOWEL DILATION. TECHNICAL DOCUMENTATION: JOB ID: [id number] [employer]- All Rights Reserved Reading location - IP/workstation name: [email or web address]
[2019-02-23] MEDS: CLONAZEPAM 1 MG TABLET PO SCH ×2 (10:04→23:27)
[2019-02-23] MEDS: FLUTICASONE NASAL SPRAY 50 MCG/SPRY 120 SPRAY/16 GM NAREB SCH (10:06)
[2019-02-23] MEDS: POTASSI CL 20 MEQ/50 ML RIDER 20 MEQ/50 ML RTUPB IV SCH ×2 (10:07→18:00)
[2019-02-23] MEDS: CHOLECALCIFEROL (D3) 400 UNIT TABLET PO SCH (10:08)
[2019-02-23] MEDS: ESTROGENS,CONJUGATED 0.3 MG TABLET PO SCH (10:08)
[2019-02-23] MEDS: CLOBETASOL PROPIONATE 0.05% TOPICAL SOLN 25 ML TOP SCH ×2 (10:26→18:00)
--- NOTE | 2019-02-23 10:56 | PDOC PROGRESS REPORT ---
Subjective Progress Note for:: 02/23/19 Subjective:: This is an 83-year-old female with chronic abdominal pain, chronic constipation, recently admitted for a partial small bowel obstruction. The patient reports feeling somewhat better today. Her abdominal pain resolves if she doesnt eat. As soon as she begins eating she experiences distention and pain. She complains of weakness and malaise. She denies chest pain, shortness of breath, fevers, chills, abdominal pain, nausea, vomiting, dizziness, blurry vision. Reason For Visit: SBO Physical Exam Vital Signs: Temp Pulse Resp BP Pulse Ox 98.4 F 71 16 114/51 L 90 L 02/23/19 08:20 02/23/19 08:20 02/23/19 08:20 02/23/19 08:20 02/23/19 08:20 Intake & Output 02/22/19 02/23/19 02/24/19 06:59 06:59 06:59 Intake Total 1576 560 Output Total 1000 Balance 576 560 Weight 53.2 kg 53.2 kg Exam: General appearance: PRESENT: cooperative Head exam: PRESENT: atraumatic, normocephalic Eye exam: PRESENT: EOMI, PERRLA. ABSENT: scleral icterus Mouth exam: PRESENT: moist, neck supple Neck exam: ABSENT: meningismus, tenderness, thyromegaly, tracheal deviation Respiratory exam: PRESENT: clear to auscultation enedina, unlabored. ABSENT: chest wall tenderness, wheezes Cardiovascular exam: PRESENT: RRR Pulses: PRESENT: normal radial pulses Vascular exam: PRESENT: normal capillary refill. ABSENT: pallor GI/Abdominal exam: PRESENT: distended, soft. ABSENT: rigid, tenderness Rectal exam: PRESENT: deferred Extremities exam: ABSENT: clubbing Musculoskeletal exam: ABSENT: deformity Neurological exam: PRESENT: alert, awake, oriented to person, oriented to place, oriented to time, oriented to situation Psychiatric exam: PRESENT: other - tangential. ABSENT: agitated, anxious Skin exam: ABSENT: cyanosis, erythema, jaundice Results Laboratory Results: 02/23/19 06:55 02/23/19 06:55 02/23/19 02/23/19 06:55 06:55 WBC 10.8 H RBC 3.96 Hgb 11.4 L Hct 33.8 L MCV 86 MCH 28.9 MCHC 33.7 RDW 13.4 Plt Count 166 Seg Neutrophils % 75.3 Lymphocytes % 16.0 Monocytes % 7.7 Eosinophils % 0.7 Basophils % 0.3 Absolute Neutrophils 8.1 Absolute Lymphocytes 1.7 Absolute Monocytes 0.8 Absolute Eosinophils 0.1 Absolute Basophils 0.0 Sodium 138.0 Potassium 3.4 L Chloride 104 Carbon Dioxide 29 Anion Gap 5 BUN 8 Creatinine 0.58 Est GFR ( Amer) > 60 Est GFR (Non-Af Amer) > 60 Glucose 91 Calcium 8.2 L Impressions: Esophagus X-Ray 02/20/19 00:00 IMPRESSION: Moderate to large retrocardiac hiatal hernia containing the stomach fundus. Mild distal esophageal peptic stricture with mild mucosal irregularity. Unprovoked gastroesophageal reflux to the cervical esophagus Abdomen X-Ray 02/22/19 00:00 IMPRESSION: Small bowel obstruction. KUB X-Ray 02/23/19 00:00 IMPRESSION: IMPROVEMENT IN THE PREVIOUSLY SEEN SMALL BOWEL DILATION. Assessment & Plan - Diagnosis (2) Nausea and vomiting Qualifiers: Vomiting Intractability: non-intractable Is this a current diagnosis for this admission?: Yes - Plan Summary Plan Summary: This is an 83-year-old female with a history of chronic constipation and a hiatal hernia. She was recently admitted for a small bowel obstruction. Unfortunately she has multiple studies both showing, and failing to show an obstruction. The patient may have a chronic, intermittent, partial small bowel obstruction. At this point, the patient is still unable to eat due to distention and pain. I again discussed exploratory laparotomy with her versus continued conservative management. The patient has chosen operative exploration. I discussed the risks and benefits in great detail. Informed consent obtained, and all questions answered.
[2019-02-23] MEDS ORDERED: ROCURONIUM BROMIDE INJ 50 MG/5 ML VIAL IV ONE (13:32)
[2019-02-23] MEDS ORDERED: SUCCINYLCHOLINE CHLORIDE INJ 200 MG/10 ML VIAL ONE (13:32)
[2019-02-23] MEDS: DEXTROSE 5%-LACTATED RINGERS 1,000 ML IV PRN (17:51)
[2019-02-23] MEDS ORDERED: FENTANYL CITRATE INJ/PF 100 MCG/2 ML AMPUL ONE (18:41)
[2019-02-23] MEDS ORDERED: DEXAMETHASONE SOD PHOSPHATE INJ 4 MG/1 ML VIAL ONE (18:41)
[2019-02-23] MEDS ORDERED: ONDANSETRON HCL INJ/PF 4 MG/2 ML SDV ONE (18:41)
[2019-02-23] MEDS ORDERED: MIDAZOLAM 2 MG/2 ML INJ ONE (18:41)
[2019-02-23] MEDS ORDERED: PROPOFOL INJ 200 MG/20 ML VIAL IV ONE (18:42)
[2019-02-23] MEDS ORDERED: SUGAMMADEX SODIUM 200 MG/2 ML SDV IV ONE (18:42)
[2019-02-23] MEDS ORDERED: BUPIVACAINE HCL 0.25 % INJ/PF (2.5 MG/1 ML) 30 ML VIAL ONE (18:46)
[2019-02-23] MEDS ORDERED: VANCOMYCIN HCL INJ 1000 MG VIAL ONE (19:21)
[2019-02-23] MEDS ORDERED: FENTANYL CITRATE INJ/PF 100 MCG/2 ML AMPUL IV PRN ×2 (19:45)
[2019-02-23] MEDS ORDERED: MEPERIDINE HCL/PF INJ 25 MG/1 ML DISP.SYRIN IV PRN (19:45)
[2019-02-23] MEDS ORDERED: MORPHINE SULFATE 10 MG/ML INJ IV PRN (19:45)
[2019-02-23] MEDS ORDERED: PROMETHAZINE HCL INJ 25 MG/1 ML VIAL IV PRN (19:45)
[2019-02-23] MEDS ORDERED: DIPHENHYDRAMINE HCL 50 MG/ML VIAL IV PRN (19:45)
[2019-02-23] MEDS ORDERED: HYDROMORPHONE HCL INJ/PF 2 MG/ML AMPULE ONE (20:50)
--- NOTE | 2019-02-23 23:22 | Operative Report ---
Nonrecallable Operative Report DATE OF SURGERY: 02/23/19 PREOPERATIVE DIAGNOSIS: 1. Small bowel obstruction. 2. Large hiatal hernia with intrathoracic stomach. POSTOPERATIVE DIAGNOSIS: Same as above OPERATION: 1. Exploratory laparotomy. 2. Extensive lysis of adhesions. Area of the terminal ileum with high-grade partial obstruction released. 3. Reduction of intrathoracic stomach with gastropexy. SURGEON: JACOB SYLVESTER ANESTHESIA: GA TISSUE REMOVED OR ALTERED: None COMPLICATIONS: None apparent ESTIMATED BLOOD LOSS: 100 cc PROCEDURE: Drains/implants: None. Procedure in detail: After informed consent was obtained, the patient was brought to the operating room and laid in the supine position. The area of the abdomen was prepped and draped in a normal sterile fashion. A 10 blade scalpel was used to create an incision within the bounds of a previous lower midline scar. Dissection was carried through the subcutaneous tissue to the linea alba fascia. This was incised sharply. The abdomen was entered sharply. There were noted to be dense inflammatory adhesions to the pelvis and lower midline. With great care, the abdomen was opened and entered. The lysis of adhesions was undertaken using sharp dissection. There were multiple adhesions of the omentum to the anterior abdominal wall, small bowel to small bowel, and small bowel to the pelvis. While freeing the small bowel from the lower pelvis there was found to be an adhesive band causing a tight stricture in the terminal ileum. Once this was freed, the area of obstruction was relieved. The small bowel was then run from the ligament of Treitz to the ileocecal valve. No areas of devascularization or stricture could be identified. The colon was visually inspected, and found to appear normal. Next attention was turned to examination of the stomach. There were dense adhesions throughout the abdominal cavity, even in the upper abdomen. Secondary to this, it was felt to be unwise to attempt a hiatal hernia repair at this juncture. The intrathoracic stomach was reduced back into the abdomen and pexied to the left upper quadrant abdominal wall in several places using 2-0 Ethibond suture in interrupted fashion. Once the gastropexy was completed, the abdomen was copiously irrigated and suctioned. Next, the midline was closed using #1 double-stranded loop PDS suture in simple running fashion. The overlying skin was closed using skin deepa. A dressing was placed, and the procedure was concluded. All sponge, instrument, and needle counts were correct x2. Condition: Stable.
[2019-02-23] MEDS: DIPHENHYDRAMINE HCL 25 MG CAPSULE PO SCH (23:27)
[2019-02-23] MEDS: QUETIAPINE FUMARATE 25 MG TABLET PO SCH (23:28)
[2019-02-23] MEDS: MAGNESIUM HYDROXIDE SUSP 30 ML UDCUP PO SCH (23:28)
[2019-02-23] MEDS: MORPHINE SULFATE 10 MG/ML INJ IV PRN (23:33)
[2019-02-23] MEDS: KETOROLAC TROMETHAMINE INJ/PF 30 MG/1 ML SDV IV SCH (23:34)
[2019-02-24] MEDS: ONDANSETRON HCL INJ/PF 4 MG/2 ML SDV IV PRN ×3 (03:49→18:20)
[2019-02-24] MEDS: MORPHINE SULFATE 10 MG/ML INJ IV PRN ×3 (03:49→17:00)
[2019-02-24] MEDS: LEVOTHYROXINE SODIUM 0.025 MG TABLET PO SCH (06:03)
[2019-02-24] MEDS: KETOROLAC TROMETHAMINE INJ/PF 30 MG/1 ML SDV IV SCH ×3 (06:05→22:32)
[2019-02-24 06:06] LABS: HEMATOCRIT 34.1 % (36.0-47.0); HEMOGLOBIN 11.3 g/dL (12.0-15.5); MEAN CORPUSCULAR HEMOGLOBIN 28.2 pg (27.0-33.4); MEAN CORPUSCULAR HGB CONC 33.2 g/dL (32.0-36.0); MEAN CORPUSCULAR VOLUME 85 fl (80-97); PLATELET COUNT 166 10^3/uL (150-450); RED BLOOD COUNT 4.02 10^6/uL (3.72-5.28); RED CELL DISTRIBUTION WIDTH 13.8 % (11.5-14.0); WHITE BLOOD COUNT 21.4 10^3/uL (4.0-10.5)
[2019-02-24] MEDS: PANTOPRAZOLE SODIUM 40 MG TABLET.DR PO SCH (06:06)
[2019-02-24 06:27] LABS: ANION GAP 5 (5-19); BLOOD UREA NITROGEN 8 mg/dL (7-20); CALCIUM 7.7 mg/dL (8.4-10.2); CARBON DIOXIDE 28 mmol/L (22-30); CHLORIDE 103 mmol/L (98-107); GLUCOSE 167 mg/dL (75-110); POTASSIUM 3.4 mmol/L (3.6-5.0); SODIUM 135.9 mmol/L (137-145)
[2019-02-24 06:57] LABS: ABSOLUTE LYMPHOCYTES# (MANUAL) 0.4 10^3/uL (0.5-4.7); ABSOLUTE MONOCYTES # (MANUAL) 0.9 10^3/uL (0.1-1.4); BASOPHILS % (MANUAL) 0 % (0-2); EOSINOPHILS % (MANUAL) 0 % (0-6); LYMPHOCYTES % (MANUAL) 2 % (13-45); MONOCYTES % (MANUAL) 4 % (3-13); SEGMENTED NEUTROPHILS % (MAN) 94 % (42-78); TOTAL CELLS COUNTED 100
[2019-02-24 06:58] LABS: PLATELET COMMENT ADEQUATE; RBC MORPHOLOGY COMMENT NORMO-CYTIC/CHROMIC
--- NOTE | 2019-02-24 09:03 | PDOC PROGRESS REPORT ---
Subjective Progress Note for:: 02/24/19 Subjective:: Minimal abdominal discomfort but has had some nausea and some regurgitation although no vomiting. Reason For Visit: SBO Physical Exam Vital Signs: Temp Pulse Resp BP Pulse Ox 97.8 F 77 16 150/85 H 96 02/24/19 02:50 02/24/19 02:50 02/24/19 02:50 02/24/19 02:50 02/24/19 02:50 Intake & Output 02/23/19 02/24/19 02/25/19 06:59 06:59 06:59 Intake Total 560 1400 Output Total 1115 Balance 560 285 Weight 53.2 kg 58.3 kg General appearance: PRESENT: no acute distress, cooperative Respiratory exam: PRESENT: clear to auscultation enedina Cardiovascular exam: PRESENT: RRR GI/Abdominal exam: PRESENT: other - Soft, mildly distended, minimal abdominal tenderness. Diminished bowel sounds. Results Laboratory Results: 02/24/19 05:50 02/24/19 05:50 02/24/19 02/24/19 05:50 05:50 WBC 21.4 H RBC 4.02 Hgb 11.3 L Hct 34.1 L MCV 85 MCH 28.2 MCHC 33.2 RDW 13.8 Plt Count 166 Seg Neutrophils % Not Reportable Lymphocytes % Not Reportable Monocytes % Not Reportable Eosinophils % Not Reportable Basophils % Not Reportable Absolute Neutrophils Not Reportable Absolute Lymphocytes Not Reportable Absolute Monocytes Not Reportable Absolute Eosinophils Not Reportable Absolute Basophils Not Reportable Sodium 135.9 L Potassium 3.4 L Chloride 103 Carbon Dioxide 28 Anion Gap 5 BUN 8 Creatinine 0.39 L Est GFR ( Amer) > 60 Est GFR (Non-Af Amer) > 60 Glucose 167 H Calcium 7.7 L Impressions: Esophagus X-Ray 02/20/19 00:00 IMPRESSION: Moderate to large retrocardiac hiatal hernia containing the stomach fundus. Mild distal esophageal peptic stricture with mild mucosal irregularity. Unprovoked gastroesophageal reflux to the cervical esophagus Abdomen X-Ray 02/22/19 00:00 IMPRESSION: Small bowel obstruction. KUB X-Ray 02/23/19 00:00 IMPRESSION: IMPROVEMENT IN THE PREVIOUSLY SEEN SMALL BOWEL DILATION. Assessment & Plan - Diagnosis (1) Small bowel obstruction Is this a current diagnosis for this admission?: Yes Plan: Status post lysis of adhesions and gastropexy for hiatal hernia yesterday. Patient with nausea and some regurgitation that she has had as precursor to emesis in the past. Rather than have her vomit we will place an NG tube to low wall intermittent suction.
[2019-02-24] MEDS ORDERED: PHARMACY COMMUNICATION ORDER MC NR (09:15)
[2019-02-24] MEDS: CLONAZEPAM 1 MG TABLET NG SCH ×2 (11:02→22:31)
[2019-02-24] MEDS: ESTROGENS,CONJUGATED 0.3 MG TABLET PO SCH (11:02)
[2019-02-24] MEDS: CHOLECALCIFEROL (D3) 400 UNIT TABLET NG SCH (11:02)
[2019-02-24] MEDS: CLOBETASOL PROPIONATE 0.05% TOPICAL SOLN 25 ML TOP SCH ×2 (11:02→18:16)
[2019-02-24] MEDS: SUCRALFATE 1 GM TABLET NG SCH ×3 (11:03→22:30)
--- NOTE | 2019-02-24 11:53 | RADIOLOGY REPORT (SQ) ---
EXAM DESCRIPTION: KUB/ABDOMEN (SINGLE VIEW) COMPLETED DATE/TIME: 02/24/2019 11:38 am REASON FOR STUDY: Check Placement of NG Tube COMPARISON: CT abdomen pelvis 02/11/2019 Small bowel series [id number] KUB exams 02/15/2019, 02/19/2019, 02/22/2019, 02/23/2019 Upper GI 02/20/2019 NUMBER OF VIEWS: One view. TECHNIQUE: Supine radiographic image of the abdomen acquired. LIMITATIONS: None. FINDINGS: BOWEL GAS PATTERN: Barium given for prior upper GI is now seen in the colon in a nonobstru ctive pattern. There is a nasogastric tube with the tip and side port in the stomach. No dilated small bowel loops are identified. CALCIFICATIONS: No suspicious calcifications. SOFT TISSUES: No gross mass or suggestion of organomegaly. HARDWARE: Clips right upper quadrant post cholecystectomy, right lower quadrant post remote prior estela endectomy. Midline anterior abdominal wall skin deepa are present. BONES: No acute fracture. No worrisome bone lesions. OTHER: No other significant finding. IMPRESSION: Nasogastric tube tip and side port in the stomach. Grossly nonobstructive bowel gas pattern. TECHNICAL DOCUMENTATION: JOB ID: [id number] [employer]- All Rights Reserved Reading location - IP/workstation name: [email or web address]
[2019-02-24] MEDS: PANTOPRAZOLE SODIUM 40 MG VIAL IV SCH ×2 (12:51→22:31)
[2019-02-24] MEDS: FLUTICASONE NASAL SPRAY 50 MCG/SPRY 120 SPRAY/16 GM NAREB SCH (12:52)
[2019-02-24] MEDS: DEXTROSE 5%-LACTATED RINGERS 1,000 ML IV PRN ×2 (13:43)
[2019-02-24] MEDS ORDERED: PANTOPRAZOLE SODIUM 40 MG PACKET.DR NG SCH (17:00)
[2019-02-24] MEDS ORDERED: NORMAL SALINE 500 ML IV ONE (18:15)
[2019-02-24] MEDS: LORAZEPAM INJ 2 MG/1 ML VIAL IV PRN (20:14)
[2019-02-24] MEDS: MAGNESIUM HYDROXIDE SUSP 30 ML UDCUP NG SCH (22:29)
[2019-02-24] MEDS: DIPHENHYDRAMINE HCL 25 MG CAPSULE NG SCH (22:30)
[2019-02-24] MEDS: QUETIAPINE FUMARATE 25 MG TABLET NG SCH (22:30)
[2019-02-25] MEDS: KETOROLAC TROMETHAMINE INJ/PF 30 MG/1 ML SDV IV SCH ×3 (06:24→21:31)
[2019-02-25] MEDS: LEVOTHYROXINE SODIUM 0.025 MG TABLET NG SCH (06:25)
[2019-02-25] MEDS: DEXTROSE 5%-LACTATED RINGERS 1,000 ML IV PRN ×2 (06:29→13:50)
[2019-02-25 06:31] LABS: HEMATOCRIT 32.3 % (36.0-47.0); MEAN CORPUSCULAR HEMOGLOBIN 29.1 pg (27.0-33.4); MEAN CORPUSCULAR HGB CONC 34.2 g/dL (32.0-36.0); MEAN CORPUSCULAR VOLUME 85 fl (80-97); PLATELET COUNT 187 10^3/uL (150-450); RED CELL DISTRIBUTION WIDTH 14.1 % (11.5-14.0); WHITE BLOOD COUNT 10.1 10^3/uL (4.0-10.5)
[2019-02-25 06:42] LABS: BLOOD UREA NITROGEN 9 mg/dL (7-20); CALCIUM 8.1 mg/dL (8.4-10.2); GLUCOSE 75 mg/dL (75-110); POTASSIUM 3.2 mmol/L (3.6-5.0)
[2019-02-25 06:48] LABS: CARBON DIOXIDE 31 mmol/L (22-30); CHLORIDE 103 mmol/L (98-107); SODIUM 137.1 mmol/L (137-145)
[2019-02-25 06:50] LABS: ANION GAP 3 (5-19)
[2019-02-25] MEDS: MORPHINE SULFATE 10 MG/ML INJ IV PRN ×2 (08:35→15:30)
[2019-02-25] MEDS: PANTOPRAZOLE SODIUM 40 MG VIAL IV SCH ×2 (09:26→21:31)
[2019-02-25] MEDS: FLUTICASONE NASAL SPRAY 50 MCG/SPRY 120 SPRAY/16 GM NAREB SCH (09:27)
[2019-02-25] MEDS: SUCRALFATE 1 GM TABLET NG SCH ×4 (09:27→21:30)
[2019-02-25] MEDS: CLONAZEPAM 1 MG TABLET NG SCH ×2 (09:27→21:28)
[2019-02-25] MEDS: CHOLECALCIFEROL (D3) 400 UNIT TABLET NG SCH (09:28)
[2019-02-25] MEDS: CLOBETASOL PROPIONATE 0.05% TOPICAL SOLN 25 ML TOP SCH ×2 (09:28→17:06)
[2019-02-25] MEDS: ESTROGENS,CONJUGATED 0.3 MG TABLET PO SCH (09:29)
[2019-02-25] MEDS: LORAZEPAM INJ 2 MG/1 ML VIAL IV PRN (20:05)
--- NOTE | 2019-02-25 20:12 | PDOC PROGRESS REPORT ---
Subjective Progress Note for:: 02/25/19 Subjective:: Has been having small amount of flatus.Started on clears this am but felt nauseated this pm Mild gas pains Reason For Visit: SBO Physical Exam Vital Signs: Temp Pulse Resp BP Pulse Ox 98.3 F 86 18 143/51 H 93 02/25/19 15:35 02/25/19 15:35 02/25/19 15:35 02/25/19 15:35 02/25/19 15:35 Intake & Output 02/24/19 02/25/19 02/26/19 06:59 06:59 06:59 Intake Total 1400 0 474 Output Total 1115 500 800 Balance 285 -500 -326 Weight 58.3 kg 57.9 kg Exam: Abdomen is more distended tonight. Non tender Incision is clean and dry. Mild erythema mid left lateral area Redressed Results Laboratory Results: 02/25/19 06:01 02/25/19 06:01 02/25/19 02/25/19 06:01 06:01 WBC 10.1 RBC 3.80 Hgb 11.0 L Hct 32.3 L MCV 85 MCH 29.1 MCHC 34.2 RDW 14.1 H Plt Count 187 Sodium 137.1 Potassium 3.2 L Chloride 103 Carbon Dioxide 31 H Anion Gap 3 L BUN 9 Creatinine 0.60 Est GFR ( Amer) > 60 Est GFR (Non-Af Amer) > 60 Glucose 75 Calcium 8.1 L Impressions: Esophagus X-Ray 02/20/19 00:00 IMPRESSION: Moderate to large retrocardiac hiatal hernia containing the stomach fundus. Mild distal esophageal peptic stricture with mild mucosal irregularity. Unprovoked gastroesophageal reflux to the cervical esophagus Abdomen X-Ray 02/22/19 00:00 IMPRESSION: Small bowel obstruction. KUB X-Ray 02/24/19 09:04 IMPRESSION: Nasogastric tube tip and side port in the stomach. Grossly nonobstructive bowel gas pattern. Assessment & Plan - Diagnosis (1) Small bowel obstruction Is this a current diagnosis for this admission?: Yes (2) Nausea and vomiting Qualifiers: Vomiting Intractability: non-intractable Is this a current diagnosis for this admission?: Yes - Time Time Spent with patient: 15-24 minutes - Inpatient Certification Medical Necessity: Need For IV Fluids, Need for Pain Control - Plan Summary Plan Summary: Keep NPO tonight and re-evaluate in am Continue IVF
[2019-02-25] MEDS: DIPHENHYDRAMINE HCL 25 MG CAPSULE NG SCH (21:29)
[2019-02-25] MEDS: MAGNESIUM HYDROXIDE SUSP 30 ML UDCUP NG SCH (21:30)
[2019-02-25] MEDS: QUETIAPINE FUMARATE 25 MG TABLET NG SCH (21:31)
[2019-02-25] MEDS ORDERED: CARBOXYMETHYLCELLULOSE SOD 0.5% 0.4 ML DROPERETTE OU PRN (21:46)
[2019-02-26] MEDS: KETOROLAC TROMETHAMINE INJ/PF 30 MG/1 ML SDV IV SCH ×3 (05:24→21:54)
[2019-02-26] MEDS: LEVOTHYROXINE SODIUM 0.025 MG TABLET NG SCH (05:29)
[2019-02-26] MEDS: SUCRALFATE 1 GM TABLET NG SCH ×4 (07:26→21:53)
--- NOTE | 2019-02-26 10:00 | PDOC PROGRESS REPORT ---
Subjective Progress Note for:: 02/26/19 Subjective:: Feels better but still feels bloated and is not passing gas. Patient is belching. Reason For Visit: SBO Physical Exam Vital Signs: Temp Pulse Resp BP Pulse Ox 99.0 F 94 18 91/72 L 93 02/25/19 20:17 02/25/19 20:17 02/25/19 20:17 02/25/19 20:17 02/25/19 20:17 Intake & Output 02/25/19 02/26/19 02/27/19 06:59 06:59 06:59 Intake Total 0 474 Output Total 500 1870 Balance -500 -1396 Weight 57.9 kg 57.8 kg General appearance: PRESENT: no acute distress, cooperative Respiratory exam: PRESENT: clear to auscultation enedina Cardiovascular exam: PRESENT: RRR GI/Abdominal exam: PRESENT: other - Soft, mildly distended, minimal tenderness. Results Laboratory Results: 02/25/19 06:01 02/25/19 06:01 Impressions: Esophagus X-Ray 02/20/19 00:00 IMPRESSION: Moderate to large retrocardiac hiatal hernia containing the stomach fundus. Mild distal esophageal peptic stricture with mild mucosal irregularity. Unprovoked gastroesophageal reflux to the cervical esophagus Abdomen X-Ray 02/22/19 00:00 IMPRESSION: Small bowel obstruction. KUB X-Ray 02/24/19 09:04 IMPRESSION: Nasogastric tube tip and side port in the stomach. Grossly nonobstructive bowel gas pattern. Assessment & Plan - Diagnosis (1) Small bowel obstruction Is this a current diagnosis for this admission?: Yes Plan: Status post lysis of adhesions and gastropexy for hiatal hernia. Patient still not passing gas and is slightly distended. We will make the patient n.p.o. for now. We will try to get patient out of bed. Await bowel function. Patient would like to try a suppository. Will do.
[2019-02-26] MEDS ORDERED: DEXTROSE 5%-1/2 NORMAL SALINE 1,000 ML with POTASSIUM CHLORIDE 20 MEQ IV PRN ×2 (10:01)
[2019-02-26] MEDS: CLOBETASOL PROPIONATE 0.05% TOPICAL SOLN 25 ML TOP SCH ×2 (10:04→17:05)
[2019-02-26] MEDS ORDERED: GLUCAGON,HUMAN RECOMB 1 MG INJ SUBCUT PRN (10:05)
[2019-02-26] MEDS ORDERED: DEXTROSE 40% GEL 15 GM TUBE PO PRN ×2 (10:05)
[2019-02-26] MEDS ORDERED: DEXTROSE 50%-WATER 25 GM/50 ML DISP.SYRIN IV PRN ×2 (10:05)
[2019-02-26] MEDS: POTASSI CL 20 MEQ/50 ML RIDER 20 MEQ/50 ML RTUPB IV SCH ×2 (10:23→12:02)
[2019-02-26] MEDS: CLONAZEPAM 1 MG TABLET NG SCH ×2 (10:23→21:54)
[2019-02-26] MEDS: FLUTICASONE NASAL SPRAY 50 MCG/SPRY 120 SPRAY/16 GM NAREB SCH (10:23)
[2019-02-26] MEDS: ESTROGENS,CONJUGATED 0.3 MG TABLET PO SCH (10:27)
[2019-02-26] MEDS: CHOLECALCIFEROL (D3) 400 UNIT TABLET NG SCH (10:28)
[2019-02-26] MEDS: PANTOPRAZOLE SODIUM 40 MG VIAL IV SCH ×2 (10:28→21:54)
[2019-02-26] MEDS ORDERED: BISACODYL 10 MG SUPP.RECT PR ONE (11:00)
[2019-02-26] MEDS: POTASSI CL 20 MEQ/D5-1/2NS 1L 1000 ML IV PRN (12:01)
[2019-02-26] MEDS: MAGNESIUM HYDROXIDE SUSP 30 ML UDCUP NG SCH (12:02)
[2019-02-26] MEDS: DIPHENHYDRAMINE HCL 25 MG CAPSULE NG SCH (21:53)
[2019-02-26] MEDS: QUETIAPINE FUMARATE 25 MG TABLET NG SCH (21:54)
[2019-02-27] MEDS: POTASSI CL 20 MEQ/D5-1/2NS 1L 1000 ML IV PRN ×2 (01:48→11:27)
[2019-02-27] MEDS: KETOROLAC TROMETHAMINE INJ/PF 30 MG/1 ML SDV IV SCH ×3 (06:07→22:49)
[2019-02-27] MEDS: LEVOTHYROXINE SODIUM 0.025 MG TABLET NG SCH (06:08)
[2019-02-27 06:34] LABS: ABSOLUTE EOSINOPHILS # (AUTO) 0.2 10^3/uL (0.0-0.6); ABSOLUTE LYMPHOCYTES (AUTO) 1.1 10^3/uL (0.5-4.7); ABSOLUTE MONOCYTES (AUTO) 0.6 10^3/uL (0.1-1.4); ABSOLUTE NEUT (AUTO) 4.4 10^3/uL (1.7-8.2); BASOPHILS % (AUTO) 0.5 % (0-2); EOSINOPHILS % (AUTO) 2.7 % (0-6); HEMATOCRIT 31.3 % (36.0-47.0); HEMOGLOBIN 10.7 g/dL (12.0-15.5); LYMPHOCYTES % (AUTO) 17.9 % (13-45); MEAN CORPUSCULAR HGB CONC 34.1 g/dL (32.0-36.0); MEAN CORPUSCULAR VOLUME 85 fl (80-97); MONOCYTES % (AUTO) 9.7 % (3-13); PLATELET COUNT 228 10^3/uL (150-450); RED BLOOD COUNT 3.69 10^6/uL (3.72-5.28); RED CELL DISTRIBUTION WIDTH 13.7 % (11.5-14.0); SEGMENTED NEUTROPHILS % (AUTO) 69.2 % (42-78); TOTAL CELLS COUNTED % (AUTO) 100 %; WHITE BLOOD COUNT 6.4 10^3/uL (4.0-10.5)
[2019-02-27 06:58] LABS: BLOOD UREA NITROGEN 5 mg/dL (7-20); CALCIUM 7.8 mg/dL (8.4-10.2); GLUCOSE 99 mg/dL (75-110); POTASSIUM 3.4 mmol/L (3.6-5.0)
[2019-02-27 07:03] LABS: CARBON DIOXIDE 30 mmol/L (22-30); CHLORIDE 105 mmol/L (98-107); SODIUM 137.3 mmol/L (137-145)
[2019-02-27 07:11] LABS: ANION GAP 2 (5-19)
--- NOTE | 2019-02-27 08:36 | PDOC PROGRESS REPORT ---
Subjective Progress Note for:: 02/27/19 Subjective:: no pains. Has BM and flatus Reason For Visit: SBO Physical Exam Vital Signs: Temp Pulse Resp BP Pulse Ox 97.7 F 70 12 111/57 L 94 02/27/19 08:01 02/27/19 08:01 02/27/19 08:01 02/27/19 08:01 02/27/19 08:01 Intake & Output 02/26/19 02/27/19 02/28/19 06:59 06:59 06:59 Intake Total 474 1321 Output Total 1870 2500 Balance -1396 -1179 Weight 57.8 kg 58.2 kg Exam: abdomen is soft and non tender Results Laboratory Results: 02/27/19 05:53 02/27/19 05:53 02/27/19 02/27/19 05:53 05:53 WBC 6.4 RBC 3.69 L Hgb 10.7 L Hct 31.3 L MCV 85 MCH 29.0 MCHC 34.1 RDW 13.7 Plt Count 228 Seg Neutrophils % 69.2 Lymphocytes % 17.9 Monocytes % 9.7 Eosinophils % 2.7 Basophils % 0.5 Absolute Neutrophils 4.4 Absolute Lymphocytes 1.1 Absolute Monocytes 0.6 Absolute Eosinophils 0.2 Absolute Basophils 0.0 Sodium 137.3 Potassium 3.4 L Chloride 105 Carbon Dioxide 30 Anion Gap 2 L BUN 5 L Creatinine 0.56 Est GFR ( Amer) > 60 Est GFR (Non-Af Amer) > 60 Glucose 99 Calcium 7.8 L Impressions: Esophagus X-Ray 02/20/19 00:00 IMPRESSION: Moderate to large retrocardiac hiatal hernia containing the stomach fundus. Mild distal esophageal peptic stricture with mild mucosal irregularity. Unprovoked gastroesophageal reflux to the cervical esophagus Abdomen X-Ray 02/22/19 00:00 IMPRESSION: Small bowel obstruction. KUB X-Ray 02/24/19 09:04 IMPRESSION: Nasogastric tube tip and side port in the stomach. Grossly nonobstructive bowel gas pattern. Assessment & Plan - Diagnosis (1) Small bowel obstruction Is this a current diagnosis for this admission?: Yes (2) Nausea and vomiting Qualifiers: Vomiting Intractability: non-intractable Is this a current diagnosis for this admission?: Yes - Time Time Spent with patient: 15-24 minutes - Plan Summary Plan Summary: Soft diet and if tolerates transfer to rehab. She feels very weak and could barely walk to the bathroom Arrange follow up surgical clinic in 2-3 weeks
[2019-02-27] MEDS: SUCRALFATE 1 GM TABLET NG SCH ×4 (08:37→22:50)
--- NOTE | 2019-02-27 08:54 | TRANSFER SUMMARY E ---
Transfer Summary NAME: CODY JUSTIN : 1935 AGE: 83Y ADMITTED: 02/19/2019 TRANSFERRED: 02/27/2019 FINAL DIAGNOSES: 1. Small bowel obstruction due to adhesions. 2. Hiatal hernia with intrathoracic stomach. PROCEDURE DONE: 1. Exploratory laparotomy. 2. Extensive lysis of adhesions and release of obstruction. 3. Reduction of intrathoracic stomach with gastropexy. SURGEON: Rickie Velásquez M.D. DATE OF SURGERY: 02/23/2019 HOSPITAL COURSE: The patient gradually improved and tolerated clear liquids. However, she had some episodes of nausea and was made n.p.o. again. She was then put back on clear liquids on 02/25/2019 and advanced to tolerated soft diet. On discharge, 02/27/2019, the patient was able to tolerate soft diet well and requested rehab transfer because of weakness and deconditioning. She is off antibiotics. DICTATING PHYSICIAN: PAXTON ADAME M.D. [id number] PHY#: [id number] ID: [id number] JOB#: [id number] ACCT: [id number] cc:PAXTON ADAME M.D. >
[2019-02-27] MEDS: CLONAZEPAM 1 MG TABLET NG SCH ×2 (09:42→22:48)
[2019-02-27] MEDS: FLUTICASONE NASAL SPRAY 50 MCG/SPRY 120 SPRAY/16 GM NAREB SCH (09:43)
[2019-02-27] MEDS: PANTOPRAZOLE SODIUM 40 MG VIAL IV SCH (09:44)
[2019-02-27] MEDS: MAGNESIUM HYDROXIDE SUSP 30 ML UDCUP NG SCH (09:44)
[2019-02-27] MEDS: ESTROGENS,CONJUGATED 0.3 MG TABLET PO SCH (09:44)
[2019-02-27] MEDS: CLOBETASOL PROPIONATE 0.05% TOPICAL SOLN 25 ML TOP SCH ×2 (09:45→17:24)
[2019-02-27] MEDS: CHOLECALCIFEROL (D3) 400 UNIT TABLET NG SCH (09:46)
[2019-02-27] MEDS: ONDANSETRON HCL INJ/PF 4 MG/2 ML SDV IV PRN (09:50)
[2019-02-27] MEDS: MORPHINE SULFATE 10 MG/ML INJ IV PRN ×2 (11:26→15:32)
[2019-02-27] MEDS: LORAZEPAM INJ 2 MG/1 ML VIAL IV PRN (20:14)
[2019-02-27] MEDS: QUETIAPINE FUMARATE 25 MG TABLET NG SCH (22:49)
[2019-02-27] MEDS: DIPHENHYDRAMINE HCL 25 MG CAPSULE NG SCH (22:49)
[2019-02-28] MEDS: KETOROLAC TROMETHAMINE INJ/PF 30 MG/1 ML SDV IV SCH (05:58)
[2019-02-28] MEDS: LEVOTHYROXINE SODIUM 0.025 MG TABLET NG SCH (05:58)
[2019-02-28] MEDS: POTASSI CL 20 MEQ/D5-1/2NS 1L 1000 ML IV PRN (06:01)
[2019-02-28] MEDS: MAGNESIUM HYDROXIDE SUSP 30 ML UDCUP NG SCH (09:42)
[2019-02-28] MEDS: MORPHINE SULFATE 10 MG/ML INJ IV PRN (09:42)
[2019-02-28] MEDS: SUCRALFATE 1 GM TABLET NG SCH ×2 (09:42→12:41)
[2019-02-28] MEDS: FLUTICASONE NASAL SPRAY 50 MCG/SPRY 120 SPRAY/16 GM NAREB SCH (09:43)
[2019-02-28 12:28] VITALS: BP 133/62
[2019-02-28] MEDS: ONDANSETRON HCL INJ/PF 4 MG/2 ML SDV IV PRN (12:30)
[2019-02-28] MEDS: CLONAZEPAM 1 MG TABLET NG SCH (12:39)
[2019-02-28] MEDS: CLOBETASOL PROPIONATE 0.05% TOPICAL SOLN 25 ML TOP SCH (12:40)
[2019-02-28] MEDS ORDERED: OXYCODONE-ACETAMINOPHEN 5-325 MG TABLET PO PRN (13:09)
[2019-02-28] MEDS: ESTROGENS,CONJUGATED 0.3 MG TABLET PO SCH (13:29)
[2019-02-28] MEDS: CHOLECALCIFEROL (D3) 400 UNIT TABLET NG SCH (13:29)
== END 2019-02-28 13:45 | DRG 328 ==
LOC: ER 14:14 → EH 16:14 → 5 19:25
PROVIDERS: ADMIT Surgery; ATTEND Surgery
PROC: 0DNW0ZZ Release Peritoneum, Open Approach (ICD-10-PCS; 2019-02-23)
PROC: 0DS60ZZ Reposition Stomach, Open Approach (ICD-10-PCS; principal; 2019-02-23 16:45)
DX: K56.50 Intestinal adhesions [bands], unspecified as to partial versus complete obstruction (principal); Z88.2 Allergy status to sulfonamides; Z88.6 Allergy status to analgesic agent; Z88.1 Allergy status to other antibiotic agents; Z88.8 Allergy status to other drugs, medicaments and biological substances; I48.91 Unspecified atrial fibrillation; J45.909 Unspecified asthma, uncomplicated; K21.9 Gastro-esophageal reflux disease without esophagitis; M19.90 Unspecified osteoarthritis, unspecified site; G43.809 Other migraine, not intractable, without status migrainosus; K44.9 Diaphragmatic hernia without obstruction or gangrene; L40.9 Psoriasis, unspecified; F41.9 Anxiety disorder, unspecified; F32.9 Major depressive disorder, single episode, unspecified; F43.10 Post-traumatic stress disorder, unspecified; Z53.29 Procedure and treatment not carried out because of patient's decision for other reasons; H91.90 Unspecified hearing loss, unspecified ear; K58.1 Irritable bowel syndrome with constipation; K22.2 Esophageal obstruction
CPT/HCPCS: 00790; 36415; 74018; 74019; 74220; 80048; 80053; 81001; 82962; 85025; 85027; 85610; 87493; 93005; 93010; 96374; 99285; J0330; J1100; J1170; J1885; J2060; J2250; J2270; J2405; J2704; J3010; J3370; J3480; J3490; J7030; J7040; J7121; S0164

== ENCOUNTER 2019-03-25 21:49 | Emergency (ER) | payer MEDICARE, OTHER ==
--- NOTE | 2019-03-26 00:31 | ER Document Report ---
ED General - General Chief Complaint: Abdominal Pain >50 Stated Complaint: INCISION PAIN Time Seen by Provider: 03/25/19 23:51 Primary Care Provider: XOCHITL DELATORRE MD [Primary Care Provider] - Follow up as needed TRAVEL OUTSIDE OF THE [place] IN LAST 30 DAYS: No - HPI Notes: Patient is a 83-year-old female that presents to the emergency department for chief complaint of abdominal pain. Patient states starting yesterday afternoon she began having a pain in her abdomen she describes as a pulled muscle sensation. States it is across her upper abdomen. The pain is worse with movement and relieved some when she is at rest. She had a laparoscopy at the end of January for small bowel obstruction. Patient states since her surgery she had been healing well and her abdominal pa in had been very minimal until yesterday. She did have 2 normal bowel movements today and denies any bloody stools. She denies any fever, nausea or vomiting. She is not having any associated chest pain or shortness of breath. She has not taken any pain medication at home. Past Medical History: Hypothyroidism, GERD, anxiety Past Surgical History: Laparoscopy Social History: Lives at home, denies tobacco and alcohol use Family History: Reviewed and noncontributory for presenting illness Allergies: Reviewed, see documented allergy list. REVIEW OF SYSTEMS: CONSTITUTIONAL : No fever No chills No diaphoresis No recent illness EENT: No vision changes No congestion No sore throat CARDIOVASCULAR: No chest pain No palpitations RESPIRATORY: No shortness of breath No cough No difficulty breathing GASTROINTESTINAL: abdominal pain No nausea No vomiting No diarrhea GENITOURINARY: No dysuria No hematuria No difficulty urinating MUSCULOSKELETAL: No back pain No leg pain No arm pain SKIN: No rashes No lesions LYMPHATIC: No swollen, enlarged glands. NEUROLOGICAL: No lightheadedness No headache No weakness No paresthesias PSYCHIATRIC: No anxiety No depression PHYSICAL EXAMINATION: Vital signs reviewed, nursing noted reviewed. GENERAL: Well-appearing, thin and in no acute distress. HEAD: Atraumatic, normocephalic. EYES: Eyes appear normal, extraocular movements intact, sclera anicteric, conjunctiva are normal. ENT: nares patent, oropharynx clear without exudates. Moist mucous membranes. NECK: Normal range of motion, supple without lymphadenopathy LUNGS: Breath sounds clear to auscultation bilaterally and equal. No wheezes rales or rhonchi. HEART: Regular rate and rhythm without murmurs ABDOMEN: Mild tenderness to palpation across the upper abdomen, no fluctuance around surgical incision which appears to be healing well, soft, nontender, normoactive bowel sounds. No rebound, guarding, or rigidity. No masses appr eciated. EXTREMITIES: Nontender, good range of motion, no pitting or edema. NEUROLOGICAL: No focal neurological deficits. Moves all extremities spontaneously Motor and sensory grossly intact on exam. PSYCH: Normal mood, normal affect. SKIN: Warm, Dry, normal turgor, well-healed vertical midline abdominal incision without any wound dehiscence or drainage - Related Data Allergies/Adverse Reactions: sulfamethoxazole [From Septra DS] Allergy (Intermediate, Verified 05/30/18 08:02) RASH trimethoprim [From Septra DS] Allergy (Intermediate, Verified 05/30/18 08:02) RASH aspirin [Aspirin] Allergy (Mild, Verified 05/30/18 08:02) Hives doxycycline monohydrate [From Vibramycin] Allergy (Unknown, Verified 05/30/18 08:02) made me feel drunk, couldn't walk meloxicam [From Mobic] Allergy (Unknown, Verified 05/30/18 08:02) UNKNOWN nitrofurantoin [Nitrofurantoin] Allergy (Unknown, Verified 05/30/18 08:02) Sick all over lidocaine [From Lidoderm] Allergy (Verified 05/30/18 08:02) cimetidine [From Tagamet] Adverse Reaction (Intermediate, Verified 05/30/18 08:02) YEAST amoxicillin trihydrate [From Augmentin] Adverse Reaction (Mild, Verified 05/04 04/19 08:02) Nausea ciprofloxacin [From Cipro] Adverse Reaction (Mild, Verified 05/30/18 08:02) Sick stomach diclofenac sodium [From Arthrotec 75] Adverse Reaction (Mild, Verified 05/30/18 08:02) made me feel drunk doxycycline hyclate [From Vibramycin] Adverse Reaction (Mild, Verified 05/30/18 08:02) made me feel drunk, couldn't walk fexofenadine HCl [From Jacquelin] Adverse Reaction (Mild, Verified 05/30/18 08:02) "dries my mouth out" lansoprazole [From Prevacid] Adverse Reaction (Mild, Verified 05/30/18 08:02) Diarrhea misoprostol [From Arthrotec 75] Adverse Reaction (Mild, Verified 05/30/18 08:02) "felt drunk, couldn't walk" Potassium Clavulanate * [From Augmentin] Adverse Reaction (Mild, Verified 05/30/18 08:02) Nausea celecoxib [From Celebrex] Adverse Reaction (Unknown, Verified 05/30/18 08:02) Heart trouble ciprofloxacin HCl [From Cipro] Adverse Reaction (Unknown, Verified 05/30/18 08:02) Sick stomach clindamycin HCl [From Cleocin] Adverse Reaction (Verified 05/30/18 08:02) Diarrhea risperidone [Risperidone] Adverse Reaction (Verified 05/30/18 08:02) Past Medical History - Social History Smoking Status: Unknown if Ever Smoked Frequency of alcohol use: None Drug Abuse: None Family History: Reviewed & Not Pertinent Patient has suicidal ideation: No Patient has homicidal ideation: No - Past Medical History Cardiac Medical History: Reports: Hx Atrial Fibrillation - History of Denies: Hx Coronary Artery Disease, Hx Heart Attack, Hx Hypertension Pulmonary Medical History: Reports: Hx Asthma - CAUSES CONGESTION, INHALER PRN, Hx Pneumonia - YRS AGO Denies: Hx Bronchitis, Hx COPD Neurological Medical History: Reports: Hx Migraine - visual migraines. Denies: Hx Cerebrovascular Accident, Hx Seizures Renal/ Medical History: Denies: Hx Peritoneal Dialysis GI Medical History: Reports: Hx Gastroesophageal Reflux Disease, Hx Hiatal Hernia, Hx Irritable Bowel Musculoskeletal Medical History: Reports Hx Arthritis, Reports Hx Musculoskeletal Trauma - left thumb Skin Medical History: Reports Hx Psoriasis Psychiatric Medical History: Reports: Hx Anxiety, Hx Depression - anxiety, Hx Post Traumatic Stress Disorder Traumatic Medical History: Reports: Hx Fractures - left thumb Past Surgical History: Reports: Hx Appendectomy, Hx Bowel Surgery, Hx Cholecystectomy, Hx Hysterectomy, Hx Orthopedic Surgery - Immunizations Immunizations up to date: Yes Hx Diphtheria, Pertussis, Tetanus Vaccination: Yes Hx Pneumococcal Vaccination: 09/19/07 Physical Exam - Vital signs Vitals: Temp Pulse Resp BP Pulse Ox 97.6 F 80 16 149/62 H 100 03/25/19 21:58 03/25/19 21:58 03/25/19 21:58 03/25/19 21:58 03/25/19 21:58 Course - Re-evaluation Re-evalutation: 03/26/19 00:29 Vitals reviewed. Nursing notes reviewed. Patient's abdominal exam is benign but she does have some mild tenderness across her upper abdomen. She sat up in the cot to reach for her purse and states that she had a sharp pain when britt her muscles. She is afebrile and otherwise nontoxic in appearance. Patient currently does not wish to have any pain medication. 03/26/19 02:17 Patient's lab work shows no elevation in her lipase to suggest acute pancreatitis. Renal function is normal. She has a very slight hyponatremia but no severe electrolyte derangement. Patient has no leukocytosis to suggest underlying infection. Abdominal series shows no obstructive bowel gas pattern and her physical exam is not suggestive of recurrence of her obstruction. She has also had bowel movements today and tolerated oral intake. Patient's pain is reproduced when she contracts her abdominal muscles and may be musculoskeletal. She was given Tylenol and Pepcid for pain. She does have history of GERD and was counseled on monitoring her diet for aggravating foods. Patient will follow with primary care and surgery to closely monitor her abdominal pain in the postoperative setting. She will return to the emergency room for new or worsening symptoms. Patient in agreement with this plan of care. Laboratory 03/26/19 03/26/19 00:30 00:30 WBC 6.2 RBC 4.24 Hgb 12.0 Hct 36.5 MCV 86 MCH 28.4 MCHC 33.0 RDW 14.9 H Plt Count 208 Seg Neutrophils % 60.8 Lymphocytes % 27.3 Monocytes % 7.9 Eosinophils % 3.4 Basophils % 0.6 Absolute Neutrophils 3.8 Absolute Lymphocytes 1.7 Absolute Monocytes 0.5 Absolute Eosinophils 0.2 Absolute Basophils 0.0 Sodium 136.8 L Potassium 4.5 Chloride 102 Carbon Dioxide 29 Anion Gap 6 BUN 13 Creatinine 0.56 Est GFR ( Amer) > 60 Est GFR (Non-Af Amer) > 60 Glucose 95 Calcium 9.5 Total Bilirubin 0.3 Direct Bilirubin 0.2 Neonat Total Bilirubin Not Reportable Neonat Direct Bilirubin Not Reportable Neonat Indirect Bili Not Reportable AST 19 ALT 13 Alkaline Phosphatase 74 Total Protein 6.7 Albumin 3.8 Lipase 189.4 Acute Abdomen Series 03/26/19 00:26 IMPRESSION: 1. No acute pulmonary process. 2. COPD. 3. Nonobstructive bowel gas pattern. copyright 2010 [employer]- All Rights Reserved 07/25/19 02:19 - Vital Signs Vital signs: Temp Pulse Resp BP Pulse Ox 97.6 F 80 16 149/62 H 100 03/25/19 21:58 03/25/19 21:58 03/25/19 21:58 03/25/19 21:58 03/25/19 21:58 - Laboratory Result Diagrams: 03/26/19 00:30 03/26/19 00:30 Laboratory results interpreted by me: 03/26/19 03/26/19 00:30 00:30 RDW 14.9 H Sodium 136.8 L Discharge - Discharge Clinical Impression: Abdominal pain Qualifiers: Abdominal location: upper abdomen, unspecified Qualified Code(s): R10.10 - Upper abdominal pain, unspecified Condition: Stable Disposition: HOME, SELF-CARE Instructions: Abdominal Pain ([facility]) Additional Instructions: Please return to the emergency department if you have any worsening, or concern of your symptoms. Please return to the emergency department if you develop chest pain, difficulty breathing, severe abdominal pain, or ongoing vomiting. Please follow-up with your primary care physician in 2-3 days and any other recommended physicians. If prescribed, take all medications as directed. If you have any questions or concerns do not hesitate to return the emergency department for evaluation. Referrals: XOCHITL DELATORRE MD [Primary Care Provider] - Follow up in 3-5 days JACBO SYLVESTER MD [ACTIVE STAFF] - Follow up in 3-5 days
[2019-03-26 00:42] LABS: ABSOLUTE EOSINOPHILS # (AUTO) 0.2 10^3/uL (0.0-0.6); ABSOLUTE LYMPHOCYTES (AUTO) 1.7 10^3/uL (0.5-4.7); ABSOLUTE MONOCYTES (AUTO) 0.5 10^3/uL (0.1-1.4); ABSOLUTE NEUT (AUTO) 3.8 10^3/uL (1.7-8.2); BASOPHILS % (AUTO) 0.6 % (0-2); EOSINOPHILS % (AUTO) 3.4 % (0-6); HEMATOCRIT 36.5 % (36.0-47.0); LYMPHOCYTES % (AUTO) 27.3 % (13-45); MEAN CORPUSCULAR HEMOGLOBIN 28.4 pg (27.0-33.4); MEAN CORPUSCULAR VOLUME 86 fl (80-97); MONOCYTES % (AUTO) 7.9 % (3-13); PLATELET COUNT 208 10^3/uL (150-450); RED BLOOD COUNT 4.24 10^6/uL (3.72-5.28); RED CELL DISTRIBUTION WIDTH 14.9 % (11.5-14.0); SEGMENTED NEUTROPHILS % (AUTO) 60.8 % (42-78); TOTAL CELLS COUNTED % (AUTO) 100 %; WHITE BLOOD COUNT 6.2 10^3/uL (4.0-10.5)
[2019-03-26] MEDS ORDERED: FAMOTIDINE INJ/PF 20 MG/2 ML SDV IV ONE (00:50)
[2019-03-26 01:07] LABS: ALANINE AMINOTRANSFERASE 13 U/L (9-52); ALBUMIN 3.8 g/dL (3.5-5.0); ALKALINE PHOSPHATASE 74 U/L (38-126); ANION GAP 6 (5-19); ASPARTATE AMINO TRANSFERASE 19 U/L (14-36); BILIRUBIN,DIRECT 0.2 mg/dL (0.0-0.4); BILIRUBIN,TOTAL 0.3 mg/dL (0.2-1.3); BLOOD UREA NITROGEN 13 mg/dL (7-20); CALCIUM 9.5 mg/dL (8.4-10.2); CARBON DIOXIDE 29 mmol/L (22-30); CHLORIDE 102 mmol/L (98-107); GLUCOSE 95 mg/dL (75-110); POTASSIUM 4.5 mmol/L (3.6-5.0); TOTAL PROTEIN 6.7 g/dL (6.3-8.2)
--- NOTE | 2019-03-26 02:13 | RADIOLOGY REPORT (SQ) ---
EXAM DESCRIPTION: XR ABDOMEN SUPINE AND ERECT WITH CHEST (ABD ACUTE SERIES) COMPLETED DATE/TME: 03/26/2019 00:26 CLINICAL HISTORY: 83 years, Female, abdominal pain COMPARISON: 02/24/2019 FINDINGS: Single view of the chest with upright and supine views of the abdomen. Atherosclerotic calcification of the thoracic aorta. Heart is not enlarged. Hyperinflation. No consolidation, pneumothorax, or pleural effusion. No acute osseous abnormalities. Degenerative change of the thoracic and lumbar spine. No free intraperitoneal air. No abnormal calcifications. Postoperative change in the right upper abdomen compatible with previous cholecystectomy. Postoperative change in the right pelvis. Air-filled loops of nondilated large and small bowel. Moderate amount stool in the colon. IMPRESSION: 1. No acute pulmonary process. 2. COPD. 3. Nonobstructive bowel gas pattern. copyright 2010 [employer] [facility] [employer]- All Rights Reserved
[2019-03-26] MEDS ORDERED: ACETAMINOPHEN 325 MG TABLET PO ONE (02:14)
[2019-03-26] MEDS ORDERED: FAMOTIDINE 20 MG TABLET PO ONE (02:14)
[2019-03-26 02:46] VITALS: BP 132/54
== END 2019-03-26 02:46 | disposition home or self-care (01) ==
LOC: ER 21:49
DX: R10.10 Upper abdominal pain, unspecified (principal); E87.1 Hypo-osmolality and hyponatremia; J44.9 Chronic obstructive pulmonary disease, unspecified; Z98.890 Other specified postprocedural states; Z90.49 Acquired absence of other specified parts of digestive tract; Z87.19 Personal history of other diseases of the digestive system; Z88.1 Allergy status to other antibiotic agents; Z88.8 Allergy status to other drugs, medicaments and biological substances; Z88.4 Allergy status to anesthetic agent
CPT/HCPCS: 36415; 74022; 80053; 83690; 85025; 99284

== ENCOUNTER 2019-07-15 17:18 | Emergency (ER) | payer MEDICARE, OTHER ==
--- NOTE | 2019-07-15 17:59 | ER Document Report ---
ED Medical Screen (RME) - General Chief Complaint: Numbness Stated Complaint: HEAD NUMBNESS/PAIN Time Seen by Provider: 07/15/19 17:54 Primary Care Provider: XOCHITL DELATORRE MD [Primary Care Provider] - Follow up as needed Mode of Arrival: Wheelchair Information source: Patient Notes: Patient complaints to the emergency department that she has a sore on the top of her head that she is had for years that it gets infected and goes away. Reports she recently saw Dr. Cordova was treated with some ointment but she did not like it because his doctor had. She reports that now feels like it is affecting her eyes. No other complaints such as fever vomiting diarrhea. I have greeted and performed a rapid initial assessment of this patient. A comprehensive ED assessment and evaluation of the patient, analysis of test results and completion of the medical decision making process will be conducted by additional ED providers. Dictation of this chart was performed using voice recognition software; therefore, there may be some unintended grammatical errors. TRAVEL OUTSIDE OF THE [place] IN LAST 30 DAYS: No - Related Data Allergies/Adverse Reactions: sulfamethoxazole [From Septra DS] Allergy (Intermediate, Verified 05/30/18 08:02) RASH trimethoprim [From Septra DS] Allergy (Intermediate, Verified 05/30/18 08:02) RASH aspirin [Aspirin] Allergy (Mild, Verified 05/30/18 08:02) Hives doxycycline monohydrate [From Vibramycin] Allergy (Unknown, Verified 05/30/18 08:02) made me feel drunk, couldn't walk meloxicam [From Mobic] Allergy (Unknown, Verified 05/30/18 08:02) UNKNOWN nitrofurantoin [Nitrofurantoin] Allergy (Unknown, Verified 05/30/18 08:02) Sick all over lidocaine [From Lidoderm] Allergy (Verified 05/30/18 08:02) cimetidine [From Tagamet] Adverse Reaction (Intermediate, Verified 05/30/18 08:02) YEAST amoxicillin trihydrate [From Augmentin] Adverse Reaction (Mild, Verified 05/30/18 08:02) Nausea ciprofloxacin [From Cipro] Adverse Reaction (Mild, Verified 05/30/18 08:02) Sick stomach diclofenac sodium [From Arthrotec 75] Adverse Reaction (Mild, Verified 05/30/18 08:02) made me feel drunk doxycycline hyclate [From Vibramycin] Adverse Reaction (Mild, Verified 05/30/18 08:02) made me feel drunk, couldn't walk fexofenadine HCl [From Jacquelin] Adverse Reaction (Mild, Verified 05/30/18 08:02) "dries my mouth out" lansoprazole [From Prevacid] Adverse Reaction (Mild, Verified 05/30/18 08:02) Diarrhea misoprostol [From Arthrotec 75] Adverse Reaction (Mild, Verified 05/30/18 08:02) "felt drunk, couldn't walk" Potassium Clavulanate * [From Augmentin] Adverse Reaction (Mild, Verified 05/30/18 08:02) Nausea celecoxib [From Celebrex] Adverse Reaction (Unknown, Verified 05/30/18 08:02) Heart trouble ciprofloxacin HCl [From Cipro] Adverse Reaction (Unknown, Verified 05/30/18 08:02) Sick stomach clindamycin HCl [From Cleocin] Adverse Reaction (Verified 05/30/18 08:02) Diarrhea risperidone [Risperidone] Adverse Reaction (Verified 05/30/18 08:02) Past Medical History - Past Medical History Cardiac Medical History: Reports: Hx Atrial Fibrillation - History of Denies: Hx Coronary Artery Disease, Hx Heart Attack, Hx Hypertension Pulmonary Medical History: Reports: Hx Asthma - CAUSES CONGESTION, INHALER PRN, Hx Pneumonia - YRS AGO Denies: Hx Bronchitis, Hx COPD Neurological Medical History: Reports: Hx Migraine - visual migraines. Denies: Hx Cerebrovascular Accident, Hx Seizures Renal/ Medical History: Denies: Hx Peritoneal Dialysis GI Medical History: Reports: Hx Gastroesophageal Reflux Disease, Hx Hiatal Hernia, Hx Irritable Bowel Musculoskeltal Medical History: Reports Hx Arthritis, Reports Hx Musculoskeletal Trauma - left thumb Skin Medical History: Reports Hx Psoriasis Psychiatric Medical History: Reports: Hx Anxiety, Hx Depression - anxiety, Hx Post Traumatic Stress Disorder Traumatic Medical History: Reports: Hx Fractures - left thumb Past Surgical History: Reports: Hx Appendectomy, Hx Bowel Surgery, Hx Cholecystectomy, Hx Hysterectomy, Hx Orthopedic Surgery - Immunizations Immunizations up to date: Yes Hx Diphtheria, Pertussis, Tetanus Vaccination: Yes Physical Exam - Vital signs Vitals: Temp Pulse Resp BP Pulse Ox 97.9 F 72 20 154/72 H 99 07/15/19 17:38 07/15/19 17:38 07/15/19 17:38 07/15/19 17:38 07/15/19 17:38 Course - Vital Signs Vital signs: Temp Pulse Resp BP Pulse Ox 97.9 F 72 20 154/72 H 99 07/15/19 17:38 07/15/19 17:38 07/15/19 17:38 07/15/19 17:38 07/15/19 17:38 Doctor's Discharge - Discharge Referrals: XOCHITL DELATORRE MD [Primary Care Provider] - Follow up as needed
--- NOTE | 2019-07-15 18:52 | ER Document Report ---
HPI - HPI Patient complains to provider of: head is numb Time Seen by Provider: 07/15/19 17:54 Pain Level: Denies Context: Very well-appearing vibrant 83-year-old female presents the emergency department with a litany of complaints, her primary being head numbness related to a recurring lesion on her head. Patient states that her vision is affected whenever the lesion "flares up" and she has numbness that moved to the back of her head superficially to her bilateral temples which is currently not present. Patient also says that her vision gets worse whenever the lesion resurfaces. Of note she was seen at ophthalmology today and given a clean bill of health. She previously saw dermatology for this on her head and has a follow-up appointment in 3 weeks. She does complain of intermittent dizziness but admits this is chronic. She denies any fevers or recent illness, denies any vision loss, denies any slurred speech or confusion, denies any acute limb weakness, denies severe chest pain or acute shortness of breath, denies nausea/vomiting/diarrhea, denies urinary symptoms, no other complaints - REPRODUCTIVE Reproductive: DENIES: : Past Medical History - General Information source: Patient - Social History Smoking Status: Unknown if Ever Smoked Chew tobacco use (# tins/day): No Frequency of alcohol use: None Drug Abuse: None Family History: Reviewed & Not Pertinent Patient has suicidal ideation: No Patient has homicidal ideation: No - Past Medical History Cardiac Medical History: Reports: Hx Atrial Fibrillation - History of Denies: Hx Coronary Artery Disease, Hx Heart Attack, Hx Hypertension Pulmonary Medical History: Reports: Hx Asthma - CAUSES CONGESTION, INHALER PRN, Hx Pneumonia - YRS AGO Denies: Hx Bronchitis, Hx COPD Neurological Medical History: Reports: Hx Migraine - visual migraines. Denies: Hx Cerebrovascular Accident, Hx Seizures Renal/ Medical History: Denies: Hx Peritoneal Dialysis GI Medical History: Reports: Hx Gastroesophageal Reflux Disease, Hx Hiatal Hernia, Hx Irritable Bowel Musculoskeletal Medical History: Reports Hx Arthritis, Reports Hx Musculoskeletal Trauma - left thumb Skin Medical History: Reports Hx Psoriasis Psychiatric Medical History: Reports: Hx Anxiety, Hx Depression - anxiety, Hx Post Traumatic Stress Disorder Traumatic Medical History: Reports: Hx Fractures - left thumb Past Surgical History: Reports: Hx Appendectomy, Hx Bowel Surgery, Hx Cholecystectomy, Hx Hysterectomy, Hx Orthopedic Surgery - Immunizations Immunizations up to date: Yes Hx Diphtheria, Pertussis, Tetanus Vaccination: Yes Hx Pneumococcal Vaccination: 09/19/07 Vertical Provider Document - CONSTITUTIONAL Notes: PHYSICAL EXAMINATION: Reviewed vital signs and charting by RN GENERAL: Alert, interacts well. No acute distress. HEAD: Normocephalic, atraumatic. EYES: Pupils equal and round. Extraocular movements intact. ENT: Oral mucosa moist, tongue midline. NECK: Full range of motion. Trachea midline. LUNGS: Clear to auscultation bilaterally, no wheezes, rales, or rhonchi. No respiratory distress. HEART: Regular rate and rhythm. No murmur ABDOMEN: soft, non-tender. No distention. Bowel sounds present EXTREMITIES: Moves all 4 extremities spontaneously. No edema, No cyanosis. NEURO: A &O X 3, normal speech, normal gailt, PERRL, EOMI, SILT, follows commands in all 4 extremities, no gross abnormalities of cranial nerves, no focal neuro deficits, no pronator drift, [id number] testing normal, rapid alternating hand movements normal, [id number] normal, health care attorney strength 5/5 bilateral, 5/5 strength in both proximal and distal upper and lower extremities PSYCH: Normal affect, normal mood. SKIN: Warm, dry, normal turgor. No rashes or lesions noted. - INFECTION CONTROL TRAVEL OUTSIDE OF THE [place] IN LAST 30 DAYS: No Course - Re-evaluation Re-evalutation: 07/15/19 20:33 Patient with a small pustular lesion on the top of her head, a wound culture was collected, and I have given her a prescription for mupirocin. I feel this is completely unrelated to any of her complaints as she is very well-appearing, sharp winded, has good strength, and is generally vibrant. Normal neurologic exam. Patient is stable for discharge with follow-up with her primary care provider. - Vital Signs Vital signs: Temp Pulse Resp BP Pulse Ox 97.9 F 72 20 154/72 H 99 07/15/19 17:38 07/15/19 17:38 07/15/19 17:38 07/15/19 17:38 07/15/19 17:38 Discharge - Discharge Clinical Impression: Lesion of skin of scalp, Dizziness Condition: Good Disposition: HOME, SELF-CARE Additional Instructions: The wound on your head look like a pimple. I have collected for wound culture. I would continue to use the mupirocin 2 times per day for the next 7 days and follow-up with dermatology. DIZZINESS: Under normal circumstances, your sense of balance is controlled by a number of signals that your brain receives from several locations: Eyes. No matter what your position, visual signals help you determine where your body is in space and how it's moving. Sensory nerves. These are in your skin, muscles and joints. Sensory nerves send messages to your brain about body movements and positions. Inner ear. The organ of balance in your inner ear is the vestibular labyrinth. It includes loop-shaped structures (semicircular canals) that contain fluid and fine, hair-like sensors that monitor the rotation of your head. Near the semicircular canals are the utricle and saccule, which contain tiny particles called otoconia ([id number]). These particles are attached to sensors that help detect gravity and [id number] motion. Good balance depends on at least two of these three sensory systems working well. For instance, closing your eyes while washing your hair in the shower doesn't mean you'll lose your balance. Signals from your inner ear and sensory nerves help keep you upright. However, if your central nervous system can't process signals from all of these locations, if the messages are contradictory, or if the sensory systems aren't functioning properly, you may experience loss of balance. Dizziness may have a number of potential causes. These may include: Lightheadedness and other kinds of dizziness Feeling lightheaded is the feeling of being "spaced out" or having the sensation of spinning inside your head. It can also give you the sensation that if your lightheadedness worsens, you might lose consciousness. Causes may include: Inner ear disorders. These abnormalities of your inner ear can lead to illusions of motion and make you feel like you're floating. Anxiety disorders. Certain anxiety disorders, such as panic attacks and a fear of leaving home or being in large, open spaces (agoraphobia), may cause lightheadedness. Hyperventilation. Abnormally rapid breathing that often accompanies anxiety disorders may make you feel lightheaded. NORMAL EXAM AND WORKUP: At this time, your examination and workup show no significant abnormality. No significant abnormal physical findings were noted. All laboratory, EKG, and imaging (x-ray, CT scans, ultrasound) studies that were ordered show no significant abnormality. Although your examination and all studies that were ordered showed no significant abnormal finding, there are no examinations and no studies that are 100% accurate. There is always the possibility that some abnormality could exist and not be detected with physical examination or within the limits and capabilities of laboratory and other studies. You should return or follow up as you were instructed on your visit today for further evaluation if your symptoms do not resolve. Anxiety The physician feels that some of your health problems are being caused by anxiety. Anxiety affects your health in many ways. Anxiety alone can cause palpitations, sweats, chest pains, abdominal pains, shortness of breath, and headaches. It contributes to ulcer disease, high blood pressure, irritable bowel syndrome, and has been shown to cause flare-ups of many other diseases. Anxiety is not a simple disorder to treat. If the anxiety is due to recent life stresses, you may simply need time to "work through" the changes. If the anxiety is due to an underlying unhappiness with yourself or due to psychiatric disturbance, professional help will be needed. Your physician can refer you for further help if needed. Anti-anxiety medication is occasionally given if the stress is acute or if you are having trouble sleeping. Chronic or frequent use of these medications is not a good idea because the body becomes reliant on it, preventing you from dealing with life's normal stresses. Please follow-up with your primary doctor tomorrow. These return to the emergency department if you develop slurred speech, acute confusion, unilateral limb weakness, you pass out, you have severe intractable chest pain or acute shortness of breath, or you have any other concerning symptoms. Prescriptions: Mupirocin [Bactroban 2% Ointment 22 gm] 1 applic TP TID #1 tube Referrals: XOCHITL DELATORRE MD [Primary Care Provider] - Follow up tomorrow
[2019-07-15 19:42] VITALS: BP 148/51
== END 2019-07-15 19:44 | disposition home or self-care (01) ==
LOC: ER 17:18
DX: L98.8 Other specified disorders of the skin and subcutaneous tissue (principal); R42 Dizziness and giddiness; R20.0 Anesthesia of skin; I48.91 Unspecified atrial fibrillation; Z90.49 Acquired absence of other specified parts of digestive tract; Z90.710 Acquired absence of both cervix and uterus
CPT/HCPCS: 87070; 87077; 87205

== ENCOUNTER → 2019-11-11 | Outpatient (CLI) | payer MEDICARE, OTHER ==
--- NOTE | 2019-11-11 14:38 | RADIOLOGY REPORT (SQ) ---
EXAM DESCRIPTION: ACUTE ABDOMEN SERIES COMPLETED DATE/TIME: 11/11/2019 2:28 pm REASON FOR STUDY: UNSPECIFIED ABDOMINAL PAIN,OTHER CONSTIPATION K59.09 OTHER CONSTIPATION R10.9 UN SPECIFIED ABDOMINAL PAIN COMPARISON: 03/26/2019 NUMBER OF VIEWS: Three views. TECHNIQUE: Frontal chest, supine abdomen and upright/decubitus abdomen radiographic images acquired. LIMITATIONS: None. FINDINGS: CHEST: Lungs clear of infiltrates. Lung hutchins remain hyperexpanded consistent with COPD. FREE AIR: None. No abnormal gas collections. BOWEL GAS PATTERN: Nonobstructive pattern. No dilated loops or air fluid levels. CALCIFICATIONS: No suspicious calcifications. HARDWARE: None in the abdomen. SOFT TISSUES: No gross mass or suggestion of organomegaly. BONES: No acute fracture. No worrisome bone lesions. OTHER: No other significant finding. IMPRESSION: NO RADIOGRAPHIC EVIDENCE FOR ACUTE ABDOMINAL DISEASE. TECHNICAL DOCUMENTATION: JOB ID: [id number] 2010 [employer]- All Rights Reserved Reading location - IP/workstation name: [email or web address]
== END ==
LOC: RAD 14:12
PROVIDERS: ATTEND Surgery
DX: K59.09 Other constipation (principal); R10.9 Unspecified abdominal pain
CPT/HCPCS: 74022